=== PATIENT | female | born 1955 | race Caucasian/White ===

== ENCOUNTER 2019-05-25 16:23 | Emergency (ER) | payer MEDICAID, SELFPAY ==
[2019-05-25 16:48] VITALS: BMI 32.3
--- NOTE | 2019-05-25 17:37 | XR_ITS ---
WS: [id number] CHEST XRAY TECHNIQUE: Portable chest. CLINICAL INFORMATION: cp COMPARISON: None. FINDINGS: Heart: Normal cardiac silhouette. Lungs: Chronic emphysematous changes. No acute pulmonary infiltrates. No focal pneumonia. Cholecystec tanner clips. Bones: Normal visualized bony structures. XR/XR chest 1V portable [id number] IMPRESSION: No acute chest findings
--- NOTE | 2019-05-25 17:37 | ECG_ITS ---
Measurements Intervals [place] Rate: 70 P: -12 [place]: 162 QRS: 51 QRSD: 126 T: 71 QT: 376 QTc: 406 SINUS RHYTHM MODERATE INTRAVENTRICULAR CONDUCTION DELAY [110+ ms QRS DURATION] INTERPRETATION BASED ON A DEFAULT AGE OF 40 YEARS Compared to ECG 05/01/2016 18:42:11 Intraventricular conduction delay now present Electronically Signed On 05-26-2019 16:16:01 IMPLEMENTATION COORDINATOR by Kareem Smith M.D. [id number]
[2019-05-25 18:31] LABS: Basophils # 0.1 10^3/uL (0.0-0.1); Basophils % 0.7 %; Eosinophils # 0.1 10^3/uL (0.0-0.8); Eosinophils % 0.9 %; Hematocrit 41.5 % (37.0-47.0); Hemoglobin 13.5 g/dL (11.5-15.3); Lymphocytes # 3.9 10^3/uL (0.8-4.8); Lymphocytes % 36.4 %; Mean Corpuscular HGB Conc 32.5 g/dL (30.0-36.0); Mean Corpuscular Hemoglobin 30.4 pg (28.0-34.0); Mean Corpuscular Volume 93.5 fL (81-99); Mean Platelet Volume 11.5 fL (7.4-10.4); Monocytes # 0.4 10^3/uL (0.2-0.9); Monocytes % 4.1 %; Neutrophils # 6.1 10^3/uL (1.8-7.7); Neutrophils % 57.2 %; Nucleated Red Blood Cells % 0 %; Platelet Count 261 10^3/cmm (130-400); Red Blood Count 4.44 10^6/uL (4.1-5.3); Red Cell Distribution Width 11.8 % (12.1-15.1); White Blood Count 10.7 10^3/uL (4.0-10.0)
[2019-05-25 18:43] LABS: Alanine Aminotransferase 46 U/L (0-33); Albumin Level 4.6 g/dL (3.5-5.2); Alkaline Phosphatase 174 IU/L (35-105); Aspartate Amino Transferase 41 U/L (0-32); Blood Urea Nitrogen 14 mg/dL (8-23); Calcium 10.2 mg/dL (8.5-10.5); Carbon Dioxide 29 mmol/L (22-29); Chloride 95 mmol/L (98-107); Globulin 4.1 g/dL (1.3-4.6); Glomerular Filtration Rate 85.1 mL/min (90-130); Glucose 138 mg/dL (74-106); Sodium 134 mmol/L (136-145); Total Bilirubin 0.3 mg/dL (0.15-1.2); Total Protein 8.7 g/dL (6.6-8.7)
[2019-05-25 18:44] LABS: Troponin(5th) Baseline 7 ng/mL (0-10)
--- NOTE | 2019-05-25 19:37 | ECG_ITS ---
Measurements Intervals [place] Rate: 61 P: 30 [place]: 200 QRS: 56 QRSD: 84 T: 74 QT: 391 QTc: 395 SINUS RHYTHM NONSPECIFIC T-WAVE ABNORMALITY Compared to ECG 05/01/2016 18:42:11 T-wave abnormality now present Electronically Signed On 05-26-2019 16:20:17 ENVIRONMENTAL STUDIES DEPARTMENT CHAIR by Kareem Smith M.D. [id number]
[2019-05-25 19:59] LABS: Troponin 5 2HR 7.37 ng/mL (0-10); Troponin 5 2HR Delta 0.37 ABS# (0-10)
--- NOTE | 2019-05-25 20:36 | ED_ITS ---
Entered by Kenna Mercado, acting as scribe for Sunday Patricia MD May 25, 2019 16:23 HPI - Chest Pain General: Chief Complaint: Chest Pain Stated Complaint: cp Time Seen by Provider: 05/25/19 20:35 Source: patient Mode of arrival: ambulatory History of Present Illness: HPI narrative: 63 yo f came to the er pov for chest pain. Onset was today. Pt states that she has been having some sharp chest pain. Pt states that she doubled over in pain. Pt states that she has had these pains before. Pt states that she has had acid reflux in the past. complaint: chest pain Onset (ago): day(s) (today) Timing of current episode: still present Prior episodes: Yes Onset: during rest Pain location: substernal Pain radiation: none Severity: mild Quality: sharp Associated symptoms: Deny abdominal pain, dyspnea, fever(s), nausea or vomiting Treatment prior to arrival: none Risk Factors: Coronary artery disease risk factors: none Thoracic aortic dissection risk factors: none Related Data: On Oral Contraceptives: No Review of Systems Const: Denies: fever, chills, body aches or change in appetite Eyes: Denies: blurry vision or eye discomfort ENMT: Denies: throat pain or dental pain Card: Denies: chest pain Resp: Denies: shortness of breath GI: Denies: abdominal pain, nausea, vomiting or diarrhea : Denies: painful urination Musc: Denies: neck pain or back pain Skin/Breast: Denies: rash Neuro: Denies: headache Psych: Denies: depression Brenotn/Lymph: Denies: easy bruising All/Imm: Denies: hives PFSH ED PFSH: Statuses (acute, chronic, etc) shown below reflect problem list status as previously entered and may not be historically accurate Social History Smoking and tobacco status: never smoked Physical Exam Const: COMMON NORMALS: no apparent distress, oriented x3 and healthy appearing HENMT: COMMON NORMALS: normocephalic and head/scalp atraumatic HEAD & SCALP: normocephalic and atraumatic Eye: COMMON NORMALS: PERRL and EOMs intact bilaterally PUPIL: Yes PERRL Neck/C-Spine: COMMON NORMALS: full ROM and supple Chest: COMMONS NORMALS: inspection of chest normal and palpation of chest normal Resp: COMMON NORMALS: normal respiratory effort, no retractions, no use of accessory muscles and clear to auscultation bilaterally AUSCULTATION: clear to auscultation bilaterally Cardio: COMMON NORMALS: regular rate, regular rhythm and no murmurs RATE: regular rate RHYTHM: regular rhythm GI: COMMON NORMALS: normal to inspection, nondistended, normoactive bowel sounds, soft to palpation, non-tender and no masses PALPATION: Yes soft Extremity: COMMON NORMALS: normal to inspection and full ROM Neuro: COMMON NORMALS: oriented x3, moves all extremities and no focal motor deficits Psych: COMMON NORMALS: mental status grossly normal, thought process normal and cooperative THOUGHT PROCESS: normal thought process Skin: COMMON NORMALS: no rashes or lesions noted and no wounds GENERAL SKIN EXAM: no rashes or lesions noted Course Vital Signs: Vital signs: Vital Signs Pulse Rate 67 05/25/19 21:13 Respiratory Rate 16 05/25/19 21:13 Blood Pressure 131/85 05/25/19 21:13 Pulse Oximetry 94 05/25/19 21:13 MDM - Chest Pain MDM Narrative: Medical decision making narrative: Patient presents here with chest pain that is atypical in nature. Patient's EKG and troponins here are normal. Patient is stable for discharge and is return if worsening. Lab Data: Labs: Lab Results 05/25/19 05/25/19 05/25/19 Range/Units 18:00 18:00 18:00 WBC 10.7 H (4.0-10.0) 10^3/ uL RBC 4.44 (4.1-5.3) 10^6/u L Hgb 13.5 (11.5-15.3) g/dL Hct 41.5 (37.0-47.0) % MCV 93.5 (81-99) fL MCH 30.4 (28.0-34.0) pg MCHC 32.5 (30.0-36.0) g/dL RDW 11.8 L (12.1-15.1) % Plt Count 261 (130-400) 10^3/c mm MPV 11.5 H (7.4-10.4) fL Neut % (Auto) 57.2 % Lymph % (Auto) 36.4 % [place] % (Auto) 4.1 % Eos % (Auto) 0.9 % Baso % (Auto) 0.7 % Neut # (Auto) 6.1 (1.8-7.7) 10^3/u L Lymph # (Auto) 3.9 (0.8-4.8) 10^3/u L [place] # (Auto) 0.4 (0.2-0.9) 10^3/u L Eos # (Auto) 0.1 (0.0-0.8) 10^3/u L Baso # (Auto) 0.1 (0.0-0.1) 10^3/u L Nucleated RBC % (a uto) 0 % Nucleated RBCs # 0.0 /100WBC Sodium 134 L (136-145) mmol/L Potassium 4.0 (3.5-5.1) mmol/L Chloride 95 L (98-107) mmol/L Carbon Dioxide 29 (22-29) mmol/L Anion Gap 14.0 (5-19) BUN 14 (8-23) mg/dL Creatinine 0.7 (0.5-0.9) mg/dL GFR Calculation 85.1 L (90-130) mL/min Glucose 138 H (74-106) mg/dL Calcium 10.2 (8.5-10.5) mg/dL Total Bilirubin 0.3 (0.15-1.2) mg/dL AST 41 H (0-32) U/L ALT 46 H (0-33) U/L Alkaline Phosphata se 174 H (35-105) IU/L Troponin T Baselin e 7 (0-10) ng/mL Troponin T 120 Min [place] (0-10) ng/mL Delta Troponin T (0-10) ABS# Total Protein 8.7 (6.6-8.7) g/dL Albumin 4.6 (3.5-5.2) g/dL Globulin 4.1 (1.3-4.6) g/dL 05/25/19 Range/Units 19:30 WBC (4.0-10.0) 10^3/ uL RBC (4.1-5.3) 10^6/u L Hgb (11.5-15.3) g/dL Hct (37.0-47.0) % MCV (81-99) fL MCH (28.0-34.0) pg MCHC (30.0-36.0) g/dL RDW (12.1-15.1) % Plt Count (130-400) 10^3/c mm MPV (7.4-10.4) fL Neut % (Auto) % Lymph % (Auto) % [place] % (Auto) % Eos % (Auto) % Baso % (Auto) % Neut # (Auto) (1.8-7.7) 10^3/u L Lymph # (Auto) (0.8-4.8) 10^3/u L [place] # (Auto) (0.2-0.9) 10^3/u L Eos # (Auto) (0.0-0.8) 10^3/u L Baso # (Auto) (0.0-0.1) 10^3/u L Nucleated RBC % (a uto) % Nucleated RBCs # /100WBC Sodium (136-145) mmol/L Potassium (3.5-5.1) mmol/L Chloride (98-107) mmol/L Carbon Dioxide (22-29) mmol/L Anion Gap (5-19) BUN (8-23) mg/dL Creatinine (0.5-0.9) mg/dL GFR Calculation (90-130) mL/min Glucose (74-106) mg/dL Calcium (8.5-10.5) mg/dL Total Bilirubin (0.15-1.2) mg/dL AST (0-32) U/L ALT (0-33) U/L Alkaline Phosphata se (35-105) IU/L Troponin T Baselin e (0-10) ng/mL Troponin T 120 Min [place] 7.37 (0-10) ng/mL Delta Troponin T 0.37 (0-10) ABS# Total Protein (6.6-8.7) g/dL Albumin (3.5-5.2) g/dL Globulin (1.3-4.6) g/dL Imaging Data^: CXR: Attestation: I personally reviewed and interpreted this imaging study as follows: My impression: no acute abnormality EKG Data^: EKG 1: Attestation: I personally reviewed and interpreted this EKG as follows: EKG interpretation date: 05/25/19 EKG interpretation time: 16:56 Interpretation: nsr hr [address] or t wave abnormalities qrs 126 qtc 396 EKG 2: Attestation: I personally reviewed and interpreted this EKG as follows: EKG interpretation date: 05/25/19 EKG interpretation time: 20:30 Interpretation: nsr hr [address] or t wave abnormalities Discharge Plan Discharge Patient Disposition: Home, Self-Care Clinical Impression: Chest pain Qualifiers: Chest pain type: unspecified Qualified Code(s): R07.9 - Chest pain, unspecified Condition: Stable Prescriptions: [place] 5-325 mg tablet 1 tab PO Q6H PRN (Reason: pain) Qty: 14 RF: 0 Discharge Orders: Discharge Order (Routine); Ordered 05/25/19 Ordered By: Sunday Patricia Referrals: Maritza Fuentes MD [Physician] - 4-7 days Rex Kumar DO [Primary Care Provider] - Discharge Diet: Advance as tolerated Discharge Activity: Resume usual activity Patient Instructions: Chest Pain (ED) Discharge Date/Time: 05/25/19 21:14 Coding Level of Care Code ED Family Development Specialist for Chg Fwd Exam Problem Focused The documentation recorded by the Rogelio harkins Stephanie Lyn, accurately reflects the service I personally performed and the decisions made by Belem casiano Korby, MD May 25, 2019 16:23
[2019-05-25] MEDS: HYDROcodone-acetaminophen 5-325 mg Tablet 1 TAB PO (20:49)
[2019-05-25 21:13] VITALS: BP 131/85; PULSE 67; RESP 16; O2SAT 94
--- NOTE | 2019-05-26 16:01 | DCPLANNER ---
parking garage manager had message to schedule a follow up appointment for patient with [facility]. parking garage manager called [facility], spoke with Corie, a follow up appointment was scheduled for , June 04, 2019 at 10:45 with Alissa Jefferson. parking garage manager called patient and informed patient of the scheduled appointment.
--- NOTE | 2019-07-08 15:50 | DCPLANNER ---
Patient did attend appointment scheduled for 09.29.19 with [facility].
== END 2019-05-25 21:14 | disposition home or self-care (01) ==
PROVIDERS: Emergency Provider Emergency Medicine; Family Provider Family Medicine; PCP Family Medicine
DX: R07.9 Chest pain, unspecified (principal)
CPT/HCPCS: 36415; 71045; 80053; 84484; 85025; 93005; 99281; 99284

== ENCOUNTER 2020-10-20 16:19 | Outpatient (CLI) | payer MEDICAID, SELFPAY ==
--- NOTE | 2020-10-20 | XR_ITS ---
WS: [id number] Right knee, 3 views, 10/20/2020 Clinical Data: RT KNEE PAIN Comparison: None. Findings: No fractures or dislocations are seen. The joint spaces are normal. The patella is intact. The soft t issues are unremarkable. There are small spurs of the medial and lateral femoral condyles. There is a small irregularity infer ior to the lateral femoral condyle. XR/XR knee RT 3V* [id number] Impression: Mild osteoarthritis of the right knee. Kellgren-He Classification: grade 1 (doubtful): doubtful joint space narr owing and possible osteophytic lipping
== END 2020-10-20 16:20 | disposition home or self-care (01) ==
PROVIDERS: Family Provider Family Medicine; PCP Family Medicine; Visit Provider Family Medicine
DX: M25.561 Pain in right knee (principal); M17.11 Unilateral primary osteoarthritis, right knee
CPT/HCPCS: 73562

== ENCOUNTER 2021-04-05 15:31 | Outpatient (CLI) | payer MEDICAID, SELFPAY ==
--- NOTE | 2021-04-05 15:41 | XR_ITS ---
WS: [id number] LEFT KNEE: 3 VIEW(S) TECHNIQUE: AP, oblique(s) and lateral. HISTORY: ARTHRITIS COMPARISON: 12/02/2018 No fracture or dislocation. Moderate medial compartment narrowing with sclerosis along the joint surfaces and moderate osteophyte s. Mild narrowing of the lateral and patellofemoral compartments. Spurring involving the tibial spine s. No joint effusion. No soft tissue abnormality. XR/XR knee LT 3V* [id number] IMPRESSION: 1. Moderate medial compartment osteoarthritis. 2. Mild osteoarthritis involving the lateral and patellofemoral compartments.
--- NOTE | 2021-04-05 15:42 | XR_ITS ---
WS: [id number] RIGHT KNEE: 3 VIEW(S) TECHNIQUE: AP, oblique(s) and lateral. HISTORY: ARTHRITIS COMPARISON: 10/20/2020 Mild tricompartment narrowing. Small osteophytes and joint space narrowing involving the compartments . Irregularity along the posterior surface of patella. No joint effusion. No soft tissue abnormality. XR/XR knee RT 3V* [id number] IMPRESSION: Mild tricompartment osteoarthritis. More significant loss of of the normal griselda ex and cartilage along the posterior surface of the patella.
== END 2021-04-05 15:32 | disposition home or self-care (01) ==
PROVIDERS: PCP Family Medicine; Visit Provider Family Medicine
DX: M17.12 Unilateral primary osteoarthritis, left knee; M17.11 Unilateral primary osteoarthritis, right knee
CPT/HCPCS: 73562

== ENCOUNTER → 2021-08-28 13:41 | Outpatient (BNVA) | payer MEDICARE, MEDICAID, SELFPAY | PROVIDERS: PCP Family Medicine; Visit Provider Family Medicine | DX: D64.9 Anemia, unspecified (principal) | CPT/HCPCS: 82728; 83550; 85007; 85027; 85045 ==

== ENCOUNTER 2021-09-18 10:43 | Outpatient (CLI) | payer MEDICARE, MEDICAID, SELFPAY ==
--- NOTE | 2021-09-18 10:52 | MM_ITS ---
WS: [id number] DIAGNOSTIC BILATERAL DIGITAL BREAST TOMOSYNTHESIS MAMMOGRAPHY WITH CAD RIGHT breast ultrasound, limited. HISTORY: RIGHT BREAST PAIN COMPARISON: 03/13/2016 TECHNIQUE: Bilateral craniocaudad, mediolateral oblique, and mediolateral views are submitted with to mosynthesis and SM. Spot compression RIGHT CC and MLO. Computer aided detection utilized. Breast composition: There are scattered areas of fibroglandular density. Significant change in appear ance of the RIGHT breast since the prior study. Area of architectural distortion corresponds to 9:00 of the RIGHT breast. Posterior to the RIGHT nipple there is increasing soft tissue thickening and str anding with soft tissue calcifications. Predominantly centered just posterior and along the 9:00 axis . Nipple is retracted. There is also skin thickening anteriorly. LEFT breast is negative. RIGHT breast: Irregular, ill-defined hypoechoic mass infiltrating the soft tissues of the RIGHT breas t posterior to the nipple and along the 9:00 axis. Mass measures at least 3.0 x 1.5 cm. Visually on t he mammogram the area is more extensive and there is distention of the ducts with tumor. No axillary lymph nodes. MM/[place] [id number] IMPRESSION: BI-RADS: 5-Highly Suggestive of Malignancy FOLLOW UP: Biopsy Recommended Ultrasound-guided biopsy recommended of the soft tissue mass in the RIGHT breas t extending towards the 9:00 axis. Highly suspicious for neoplasm. Notified Rex Kumar DO at 09/18/2021 12:20 PM. Message left on the answering service.
== END 2021-09-18 10:44 | disposition home or self-care (01) ==
LOC: RAD 10:49
PROVIDERS: PCP Family Medicine; Visit Provider Family Medicine
DX: N64.4 Mastodynia (principal); N63.15 Unspecified lump in the right breast, overlapping quadrants
CPT/HCPCS: 76642; 77062

== ENCOUNTER → 2021-10-09 08:53 | Outpatient (BNVA) | payer MEDICARE, MEDICAID, SELFPAY | PROVIDERS: PCP Family Medicine; Visit Provider Surgery | DX: K92.1 Melena (principal) | CPT/HCPCS: 99202 ==

== ENCOUNTER 2021-10-11 08:22 | Outpatient (CLI) | payer MEDICARE, MEDICAID, SELFPAY ==
--- NOTE | 2021-10-11 08:33 | US_ITS ---
WS: [id number] ULTRASOUND-GUIDED RIGHT BREAST BIOPSY CLINICAL INFORMATION: R BREAST PAIN COMPARISON: None. FINDINGS: The procedure including risks, benefits, and complications were discussed with the patient who agreed to proceed. Using sterile technique patient was prepped and draped in the usual sterile fashion. Aft er 1% lidocaine utilizing real-time ultrasound guidance 5 14-gauge cores were obtained of the RIGHT b reast lesion at the RIGHT nipple. Subsequently a titanium clip was placed in the biopsy cavity. No im mediate complications. Pathology demonstrates A. Breast, right breast mass , ultrasound-guided biopsy: - Invasive mammary carcinoma with infiltrative papillary growth. - Martinez Solano grade 3 (score 8). - Lymphovascular invasion identified. - Breast prognostic profile has been performed and will be reported separately. US/[place] [id number] IMPRESSION: 1. Uncomplicated ultrasound-guided RIGHT breast biopsy. 2. The pathology demonstrates INVASIVE MAMMARY CARCINOMA WITH INFILTRATIVE PAP ILLARY GROWTH AND LYMPHOVASCULAR INVASION 3. Breast cancer prognostic profile pending. 4. RECOMMEND BREAST SURGERY CONSULTATION. BI-RADS: 6-Known Biopsy-Proven Malignancy FOLLOW UP: Surgical Biopsy Recommended RECOMMEND BREAST SURGERY CONSULTATION.
[2021-10-17 14:11] LABS: Miscellaneous Test See Scanned Lab Rpt
== END 2021-10-11 08:23 | disposition home or self-care (01) ==
LOC: RAD 08:24
PROVIDERS: PCP Family Medicine; Visit Provider Family Medicine
DX: C50.011 Malignant neoplasm of nipple and areola, right female breast (principal)
CPT/HCPCS: 19083; 88305; 88361; 88374

== ENCOUNTER 2021-11-01 08:17 | Oncology outpatient (recurring) (ONCR) | payer MEDICARE, MEDICAID, SELFPAY | END 2021-11-01 23:59 | disposition home or self-care (01) | PROVIDERS: PCP Family Medicine; Visit Provider Internal Medicine Hematology & Oncology | DX: C50.911 Malignant neoplasm of unspecified site of right female breast (principal); Z17.0 Estrogen receptor positive status [ER+] | CPT/HCPCS: 99204 ==

== ENCOUNTER → 2021-11-07 09:45 | Outpatient (BNVA) | payer MEDICARE, MEDICAID, SELFPAY | PROVIDERS: PCP Family Medicine; Visit Provider Surgery | DX: C50.911 Malignant neoplasm of unspecified site of right female breast (principal) | CPT/HCPCS: 99213 ==

== ENCOUNTER 2021-11-15 13:08 | Observation (INO) | payer MEDICARE, MEDICAID, SELFPAY ==
[2021-11-14 11:42] VITALS: BMI 30.2
[2021-11-15] VITALS (14 sets, daily range): BP systolic 106–168; BP diastolic 66–81; PULSE 69–82; RESP 14–20; TEMP 36.3–36.8; O2SAT 90–98; BMI 30.2
--- NOTE | 2021-11-15 07:46 | NM_ITS ---
WS: [id number] NUCLEAR MEDICINE SENTINEL LYMPH NODE IMAGING HISTORY: right breast mass COMPARISON: None available. TECHNIQUE: The patient was injected with 1.03 mCi of Technetium 99 ultra filtered sulfur colloid. Inj ection is intradermal in a periareolar location. Four aliquots are used. RIGHT breast sentinel node injection complete at 8:20 AM. NM/NM lymphatics/lymph node [id number] IMPRESSION: Uncomplicated RIGHT breast sentinel node injection.
--- NOTE | 2021-11-15 08:27 | PC.NURSE ---
Right breast sentinel node injection of 1.03 mCi Tc99m Filtered Sulfur Colloid completed at 08:[address] Miller. BONI
[2021-11-15 08:52] LABS: Glucose Point of Care 122 mg/dL (70-110)
--- NOTE | 2021-11-15 08:53 | P.ANESASSM_ITS ---
Pre-Anesthetic Assessment Height/Weight: Height 1.5 m Weight 68.039 kg Temp Pulse Resp BP Pulse Ox 98.2 F 69 18 125/68 95 11/15/21 08:39 11/15/21 08:39 11/15/21 08:39 11/15/21 08:39 11/15/21 08:39 Preop Diagnosis: Right breast cancer Operation Date: 11/15/21 10:15 Proposed Procedures p simple [place] [id number],C50.911(Right) - Adilson Lofton DO s Sentinal Lymph Node Biopsy(Right) - Adilson Lofton DO Familial anesthetic complications: None Was Beta Christopher taken within 24 hours: N/A Was Clonidine taken within 24 hours: N/A Last intake: Intake Last Liquid Date 11/14/21 Last Liquid Time 23:30 Last Solid Date 11/14/21 Last Solid Time 23:30 Social No alcohol and No tobacco Exam alert, oriented x 3, clear to auscultation bilaterally and regular rate & rhythm Airway Mallampati: Class III Dentition: false Pulmonary None reported CV/HEM Hypertension and Peripheral Vascular Disease None reported Hepatic None reported GI Gastroesophageal Reflux Disease Metabolic Diabetes Mellitus, Hyperlipidemia and Thyroid Disease Anesthetic Plan ASA status: 3 Anesthesia: General Risk of > 500 ml blood loss (7ml/kg in children): No Medications/Allergies Home Medications Medication Instructions Recorded Confirmed Last Taken Type alprazolam 1 mg tablet 1 mg PO TID 06/03/19 11/15/21 11/14/21 History metformin 500 mg tablet 500 mg PO BID 07/22/19 11/15/21 11/14/21 History acetaminophen 325 mg capsule 325 mg PO QID PRN 04/11/21 11/14/21 Unknown History atorvastatin 20 mg tablet 20 mg PO DAILY #90 tab 04/11/21 11/15/21 11/14/21 Rx isosorbide mononitrate 30 mg 45 mg PO DIRECTED #135 tab 04/11/21 11/15/21 11/14/21 Rx tablet,extended release 24 hr levothyroxine 75 mcg capsule 88 mcg PO DAILY cap 04/11/21 11/15/21 11/14/21 History nitroglycerin 0.4 mg sublingual 0.4 mg SUBLINGUAL Q5M PRN #25 tab 04/11/21 11/14/21 Unknown Rx tablet (Nitrostat) diclofenac sodium 1 % gel topical See Rx Instructions TOPICAL ONCE 11/01/21 11/14/21 Unknown History kit PRN ea escitalopram oxalate 20 mg tablet 20 mg PO DAILY 11/01/21 11/15/21 11/14/21 History hydrocodone 7.5 mg-acetaminophen 1 tab PO Q4H PRN 11/01/21 11/15/21 11/15/21 History 325 mg tablet pantoprazole 40 mg tablet,delayed 40 mg PO DAILY 11/01/21 11/15/21 11/14/21 History release (Protonix) Allergies Allergy/AdvReac Type Severity Reaction Status Date / Time No Known Allergies Allergy Verified 11/07/21 09:48 PFSH Anesthesia Medical History Anxiety Breast cancer, right breast Diverticulitis DJD (degenerative joint disease) Hypothyroidism PAD (peripheral artery disease) Prediabetes Surgical History History of esophagogastroduodenoscopy (EGD) 10 + years ago Hx laparoscopic cholecystectomy Hx of colonoscopy 10 + years ago Hx of hysterectomy S/P foot surgery, left S/P knee surgery Family History Mother Diabetes Hypertension Stroke Sister Cancer Dementia Brother Cancer Denies family history of CAD (coronary artery disease) Clotting disorder Hyperlipidemia Psychiatric illness Chronic kidney disease (CKD) Suicide Anesthesia complication Bleeding disorder Family history of premature coronary artery disease Lung disease Social History Smoking and tobacco status: never smoked Alcohol intake: never Data Anesthesia Cardiac Studies: No Data to Display
--- NOTE | 2021-11-15 10:11 | W.PM.OPSUD ---
Surgery/Procedure H&P Update DATE OF PROCEDURE: November 15, 2021 DATE H&P PERFORMED: 11/07/21 CHANGES TO PREVIOUS DOCUMENTATION: NONE PREOP DIAGNOSIS: Right breast cancer PLANNED PROCEDURE: Operation Date: 11/15/21 10:15 Proposed Procedures p simple [place] [id number],C50.911(Right) - DO edgar Burks Sentinal Lymph Node Biopsy(Right) - Adilson Lofton DO
[2021-11-15] MEDS: ceFAZolin 2,000 MG in sodium chloride 0.9% (plus) 50 ML 100 MG IV (11:36)
--- NOTE | 2021-11-15 11:45 | PC.NURSE ---
CALLED AND SPOKE TO PATHOLOGY TO NOTIFY THEM OF DR. GUERRIER'S FROZEN LYMPH NODE SECTION THAT WOULD BE READY IN ABOUT 20 MINUTES.
[2021-11-15] MEDS: isosulfan blue 10 mg/mL SDV 5mL 50 MG SUBCUT (12:17)
--- NOTE | 2021-11-15 16:39 | PM.OP ---
Operative Report Date of procedure: November 15, 2021 Pre-op diagnosis: Preop Diagnosis Right breast cancer Post-op diagnosis: same Procedure done: Right mastectomy with sentinel lymph node biopsy Specimens removed/disposition: Right breast and sentinel lymph nodes x5 Surgeon: Dr. Adilson Lofton DO Estimated blood loss: 150 Complications: None apparent Findings: 5 sentinel lymph nodes identified. 3 of the nodes were frozen by pathology and found to be negative on frozen Brief History: This is a very pleasant 66-year-old female who was diagnosed with right breast cancer. Right mastectomy and sentinel lymph node biopsy were indicated. The risks and benefits of the procedure were explained and documented. Procedure: The patient was wheeled into the operative room and placed on the OR table in the supine position. The right breast and axilla were inspected prepped and draped in the usual sterile fashion. A timeout was performed. All present were in agreement. Lymphazurin blue was injected subareolarly and into the mass.? These areas were massaged for 5 minutes.? A horizontal excision was made from medial to the latissimus dorsi to lateral to the sternum, encompassing the nipple.? The lateral dissection was performed first.? I dissected down to the latissimus dorsi and superior to the fascia using Bovie cautery.? Using Bovie cautery and [place] counter I looked for a sentinel node.? The [place] counter at the mass was registering at 538 and 5 sentinel lymph nodes were identified measuring between 230 and 348. 2 of the lymph nodes were relatively large and blue. The lymph nodes were removed with Bovie cautery, clipping any small arteries, and sent to pathology for frozen section. Pathology called and said they froze 3 of him and did not identify any metastases. Attention was then brought back to the mastectomy.? The horizontal ellipse excision was made with a 15 blade scalpel and carried down to the fatty tissue with Bovie cautery.? I started with the superior flap and removed all the breast tissue using Bovie cautery.? This was carried up to the clavipectoral fascia and down to the pectoralis major.? All breast tissue was removed laterally to the latissimus dorsi and proximally to the sternum.? I then went to the posterior flap all breast tissue was removed with Bovie cautery down to the inframammary fold.? I did not come very close to the mass and it was not visualized as the breast was removed en bloc. I carried the dissection down to the pectoralis major and removed all the breast tissue in its entirety.? Hemostasis was achieved with electrocautery and medium sized clips.? The breast was removed and a stitch was placed on the medial margin to miranda the specimen.? The specimen was passed off.? The surgical field was irrigated and suctioned.? There was no signs of bleeding.? A 19 Arabic Shlomo drain was then placed underneath the skin.? Dermis was then approximated with 3-0 Vicryl in interrupted fashion.? Skin was then closed with 4-0 Vicryl in a subcuticular running fashion.? Patient tolerated the procedure well and was wheeled in the postoperative anesthesia care unit in good condition.
[2021-11-15] MEDS: HYDROcodone-acetaminophen 5-325 mg Tablet 1 TAB PO ×2 (16:40→22:09)
[2021-11-15] MEDS: metformin 500 mg Tablet PO (18:59)
[2021-11-15] MEDS: heparin 5,000 unit/mL INJ 1 mL 5000 UNIT SUBCUT (21:57)
[2021-11-15] MEDS: ALPRAZolam 0.5 mg Tablet 1 MG PO (21:57)
[2021-11-16 03:40] VITALS: BP 91/52; PULSE 92; RESP 16; O2SAT 95
--- NOTE | 2021-11-16 06:46 | P.DS_ITS ---
Discharge Providers Date of Admission: 11/15/21 13:08 Date of Discharge: November 16, 2021 Attending Provider at Admission: Adilson Lofton DO Attending Provider at Discharge: Adilson Lofton DO Primary Care Provider: Rex Kumar DO Reason for Visit Reason for Visit: Brief History: 66-year-old female with right breast cancer underwent right simple mastectomy with sentinel lymph node biopsy. Hospital Course Hospital Course 66-year-old female with right breast cancer underwent right simple mastectomy with sentinel lymph node biopsy. [place] lymph nodes were negative on frozen. She was kept as an outpatient in a bed for 1 night for pain control. She did well and was discharged home the next day with pain control and a drain, along with follow-up. Physical Exam Narrative: General : Patient is well developed , no acute distress, oriented x3 Head : Normal cephalic, a-traumatic. Ears : Pinnae and external canal are normal. Hearing is normal. Eyes : PERRLA, Sclera and injection are normal. No conjunctival discharge. Nose : Mucous membranes are without erythema. Throat : buccal mucosa is normal, gums are without significant recession or hypertrophy. Lungs : Equal chest rise bilaterally, no use of accessory muscles, trachea is midline. Cor : Rate and rhythm are normal. Breast: Bandages intact without significant soak through. Drain is serosanguineous Abdomen : Soft, ND, NT, no g/r/m Extremities : No edema, no cyanosis or clubbing, dorsalis pedis pulses are present bilaterally, non-tender to palpation of calves. Upper extremities are normal bilaterally. Back : non-tender to palpation, no CVA tenderness. Neuro : CN II - XII intact, Upper and lower extremities have equal and full strength Discharge Data Studies Completed and Pending Completed Studies During Hospitalization Category Date Time Status NM lymphatics/lymph node [id number] Routine Nuc Med 11/15/21 07:46 Completed Pending at discharge Category Date Time Status Pathology: Surgical [PTH] Routine Pth 11/15/21 13:43 Received Radiology Impressions Lymph Scan Nuclear Medicine 11/15/21 07:46 IMPRESSION: Uncomplicated RIGHT breast sentinel node injection. Laboratory Results POC Glucose 122 mg/dL (70-110) H 11/15/21 08:50 Vitals Last Vital Signs Temp 98.1 F 11/16/21 19:58 Pulse 88 11/16/21 19:58 Resp 15 11/16/21 19:58 BP 112/68 11/16/21 19:58 Pulse Ox 95 11/16/21 14:00 O2 Del Method 11/16/21 09:30 O2 Flow Rate 2 11/15/21 16:39 Discharge Plan Discharge Patient Disposition: Home Condition: Stable Prescriptions: Continued atorvastatin 20 mg tablet 20 mg PO DAILY Qty: 90 4RF isosorbide mononitrate 30 mg tablet extended release 24 hr 45 mg PO DIRECTED Qty: 135 4RF Rx Instructions: 30mg in the morning, 15 mg at bedtime nitroglycerin [Nitrostat] 0.4 mg tablet, sublingual 0.4 mg SUBLINGUAL Q5M PRN (Reason: chest pain) Qty: 25 3RF metformin 500 mg tablet 500 mg PO BID alprazolam 1 mg tablet 1 mg PO TID levothyroxine 75 mcg capsule 88 mcg PO DAILY escitalopram oxalate 20 mg tablet 20 mg PO DAILY pantoprazole [Protonix] 40 mg tablet,delayed release (DR/EC) 40 mg PO DAILY diclofenac sodium 1 % kit See Rx Instructions topical ONCE PRN (Reason: arthritis) Rx Instructions: topical once PRN; Held acetaminophen 325 mg capsule 325 mg PO QID PRN (Reason: Pain) Hold Instructions: Resume on 11/23/21. hydrocodone-acetaminophen 7.5-325 mg tablet 1 tab PO Q4H PRN (Reason: Pain) Hold Instructions: Resume on 11/23/21. Discharge Orders: Discharge Order (Routine); Ordered 11/16/21 Ordered By: Adilson Lofton Referrals: Adilson Lofton DO [Physician] - 2 weeks (Call clinic tomorrow morning to schedule appointment. ) Discharge Diet: Advance as tolerated Discharge Activity: Resume usual activity Patient Instructions: Hydrocodone/Acetaminophen (By mouth) (Vicodin, Bonifay, Lortab), Aelx-Keller Drain Care (DC), Lymphedema (DC), Opioid Safety, Post Anesthesia Care Activity Restrictions/Additional Instructions: Empty drain once a day plus as needed. Do not soak incision underwater for 2 weeks. Shower daily. Discharge Attestations Time Spent in Discharge Care*: less than 30 min Quality Metrics Clinical Quality Measures [ No reported AMI, CVA or VTE this stay] Coding Level of Care Code Acute Chg FW DC note
[2021-11-16] MEDS: ALPRAZolam 0.5 mg Tablet 1 MG PO ×2 (07:56→15:53)
[2021-11-16] MEDS: levothyroxine 88 mcg Tablet PO (07:57)
[2021-11-16] MEDS: metformin 500 mg Tablet PO (07:58)
[2021-11-16] MEDS: atorvastatin 40 mg Tablet 20 MG PO (07:59)
[2021-11-16] MEDS: pantoprazole DR 40 mg Tablet PO (07:59)
[2021-11-16] MEDS: heparin 5,000 unit/mL INJ 1 mL 5000 UNIT SUBCUT ×2 (07:59→15:53)
[2021-11-16] MEDS: escitalopram 10 mg Tablet 20 MG PO (08:06)
[2021-11-16] MEDS: HYDROcodone-acetaminophen 5-325 mg Tablet 1 TAB PO ×2 (08:08→15:53)
[2021-11-16] MEDS: isosorbide mononitrate ER 30 mg Tablet PO (08:10)
[2021-11-16 09:30] VITALS: BP 90/44; PULSE 92; RESP 15; TEMP 37; O2SAT 95
[2021-11-16 09:46] VITALS: RESP 18; O2SAT 95
[2021-11-16] MEDS: morphine 4 mg/mL SDV 1 mL IVP (09:46)
[2021-11-16 14:00] VITALS: BP 108/65; PULSE 97; RESP 15; TEMP 36.7; O2SAT 95
--- NOTE | 2021-11-16 19:25 | PC.NURSE ---
Patient verbalized understanding of discharge instructions. Patient verbalized understanding of wound care given by Dr. Lofton while RN not present at bed side. IV discontinued. No further needs at this time. AR RN
[2021-11-16 19:27] VITALS: BP 112/68; PULSE 88; RESP 15; TEMP 36.7
[2021-11-16 19:58] VITALS: BP 112/68; PULSE 88; RESP 15; TEMP 36.7
== END 2021-11-16 19:30 | disposition home or self-care (01) ==
LOC: OBGYN 13:08
PROVIDERS: Admitting Provider Surgery; PCP Family Medicine; Visit Provider Surgery
PROC: (CPT 19303; principal; 2021-11-15 10:15)
PROC: (CPT 19303; 2021-11-15 10:15)
DX: C50.911 Malignant neoplasm of unspecified site of right female breast (principal); K21.9 Gastro-esophageal reflux disease without esophagitis; I10 Essential (primary) hypertension; E11.9 Type 2 diabetes mellitus without complications; E78.5 Hyperlipidemia, unspecified; F41.9 Anxiety disorder, unspecified; M19.90 Unspecified osteoarthritis, unspecified site; E03.9 Hypothyroidism, unspecified; Z79.84 Long term (current) use of oral hypoglycemic drugs; R73.03 Prediabetes
CPT/HCPCS: 19303; 38525; 36416; 78195; 82962; 88307; 88309; 88331; 88342; 96372; A9541; G0378; J1644; J2270; J2704; J3010; Q9968

== ENCOUNTER → 2021-11-21 13:22 | Outpatient (BNVA) | payer MEDICARE, MEDICAID, SELFPAY | PROVIDERS: PCP Family Medicine; Visit Provider Surgery | DX: Z98.890 Other specified postprocedural states (principal); C50.911 Malignant neoplasm of unspecified site of right female breast; I73.9 Peripheral vascular disease, unspecified; M79.89 Other specified soft tissue disorders; D62 Acute posthemorrhagic anemia | CPT/HCPCS: 99214 ==

== ENCOUNTER 2021-11-21 15:10 | Outpatient (CLI) | payer MEDICARE, MEDICAID, SELFPAY ==
--- NOTE | 2021-11-21 15:13 | USCV_ITS ---
Hans Maria Age: 66 Gender: F : 1955 Exam Date: 11/21/2021 15:18 Ordering Phys: Warner Huertas MD Technologist: CHELSEY Exam Location: [facility] [place]_ Indication: Possible DVT HISTORY: Left leg swelling post op breast surgery one week PROCEDURES: Venous duplex imaging was performed in bilateral lower extremities. The following venous structures were evaluated: common femoral vein, profunda vein, proximal portion of the greater saphenous vein, superficial femoral vein, and the popliteal vein. In addition, the posterior tibial and peroneal trunk were evaluated. FINDINGS: There appears to be partial thrombus in the left prox small saphenous vein. All other veins imaged appear compressible and free of thrombus a this time. CONCLUSIONS Thrombus left proximal small saphenous vein. Remainder LLE veins are patent. Right Lower extremity veins are patent. Connor Renae MD (Electronically Signed) Final Date: 23 November 2021 17:31 S
[2021-11-21 16:12] LABS: Basophils % 0.4 %; Eosinophils # 0.2 10^3/uL (0.0-0.8); Eosinophils % 3.6 %; Lymphocytes # 1.7 10^3/uL (0.8-4.8); Lymphocytes % 31.7 %; Mean Corpuscular HGB Conc 30.4 g/dL (30.0-36.0); Mean Corpuscular Hemoglobin 29.7 pg (28.0-34.0); Mean Corpuscular Volume 97.6 fl (81-99); Mean Platelet Volume 9.6 fL (7.4-10.4); Monocytes # 0.4 10^3/uL (0.2-0.9); Monocytes % 7.3 %; Neutrophils # 2.93 10^3/uL (1.8-7.7); Neutrophils % 56.2 %; Nucleated Red Blood Cells % 0 %; Platelet Count 125 10^3/cmm (130-400); Red Blood Count 2.09 10^6/uL (4.1-5.3); White Blood Count 5.2 10^3/uL (4.0-10.0)
[2021-11-21 16:28] LABS: Hematocrit 20.4 % (37.0-47.0); Hemoglobin 6.2 g/dL (11.5-15.3)
== END 2021-11-21 15:11 | disposition home or self-care (01) ==
LOC: RAD 15:10
PROVIDERS: PCP Family Medicine; Visit Provider Surgery
DX: M79.89 Other specified soft tissue disorders (principal); I82.812 Embolism and thrombosis of superficial veins of left lower extremity; Z98.890 Other specified postprocedural states
CPT/HCPCS: 36415; 85025; 93970; 99214

== ENCOUNTER 2021-11-21 18:46 | Observation (INO) | payer MEDICARE, MEDICAID, SELFPAY ==
[2021-11-21 18:56] VITALS: BMI 35.6
--- NOTE | 2021-11-21 19:23 | P.HP_ITS ---
Providers/Chief Complaint Admitting Physician: Warner Huertas MD Primary Care Provider: Rex Kumar DO Chief Complaint: Hemoglobin 6.2-dr sent History of Present Illness Maria Maxwell is a 66 year old female who underwent right mastectomy on 11/15/2021. Patient states that she has been having sanguinous drainage in the LYNETTE bulb and over the last 2 days they have emptied the bulb about 5 times. Patient is complaining of severe pain as well as dizziness when she presented to the clinic today. She denies any shortness of breath, loss of consciousness. She is currently on hydrocodone. She denies any fevers or chills. Medications/Allergies Home Medications Medication Instructions Recorded Confirmed Last Taken Type alprazolam 1 mg tablet 1 mg PO TID 06/03/19 11/21/21 11/14/21 History metformin 500 mg tablet 500 mg PO BID 07/22/19 11/21/21 11/14/21 History acetaminophen 325 mg capsule 325 mg PO QID PRN 04/11/21 11/21/21 Unknown History atorvastatin 20 mg tablet 20 mg PO DAILY #90 tab 04/11/21 11/21/21 11/14/21 Rx isosorbide mononitrate 30 mg 45 mg PO DIRECTED #135 tab 04/11/21 11/21/21 11/14/21 Rx tablet,extended release 24 hr levothyroxine 75 mcg capsule 88 mcg PO DAILY cap 04/11/21 11/21/21 11/14/21 History nitroglycerin 0.4 mg sublingual 0.4 mg SUBLINGUAL Q5M PRN #25 tab 04/11/21 11/21/21 Unknown Rx tablet (Nitrostat) diclofenac sodium 1 % gel topical See Rx Instructions TOPICAL ONCE 11/01/21 11/21/21 Unknown History kit PRN ea escitalopram oxalate 20 mg tablet 20 mg PO DAILY 11/01/21 11/21/21 11/14/21 History hydrocodone 7.5 mg-acetaminophen 1 tab PO Q4H PRN 11/01/21 11/21/21 11/15/21 History 325 mg tablet pantoprazole 40 mg tablet,delayed 40 mg PO DAILY 11/01/21 11/21/21 11/14/21 History release (Protonix) hydrocodone 7.5 mg-acetaminophen 1 tab PO Q4H PRN #42 tab 11/16/21 11/21/21 Unknown Rx 325 mg tablet Allergies Allergy/AdvReac Type Severity Reaction Status Date / Time No Known Allergies Allergy Verified 11/21/21 13:33 PFSH Acute PFSH: Medical History (Updated 11/21/21 @ 19:27 by Warner Huertas MD) Anxiety Breast cancer, right breast Diverticulitis DJD (degenerative joint disease) Hypothyroidism PAD (peripheral artery disease) Prediabetes Surgical History (Updated 11/21/21 @ 19:27 by Warner Huertas MD) History of esophagogastroduodenoscopy (EGD) 10 + years ago Hx laparoscopic cholecystectomy Hx of colonoscopy 10 + years ago Hx of hysterectomy Hx of mastectomy S/P foot surgery, left S/P knee surgery Family History Mother Diabetes Hypertension Stroke Sister Cancer Dementia Brother Cancer Denies family history of CAD (coronary artery disease) Clotting disorder Hyperlipidemia Psychiatric illness Chronic kidney disease (CKD) Suicide Anesthesia complication Bleeding disorder Family history of premature coronary artery disease Lung disease Social History Smoking and tobacco status: never smoked Alcohol intake: never Physical Exam Narrative: Breast exam performed in the office earlier today A&P Assessment and plan (1) Acute blood loss anemia: Anemia secondary to blood loss status post right mastectomy on 11/15/21. Patient was feeling dizzy the office denies any chest pain or shortness of breath and the hemoglobin performed in the clinic was 6.2. Admit to the floor Normal saline at 100 cc/h Transfuse 1 unit PRBC Repeat CBC, BMP in the morning Resume home meds except metformin Insulin sliding scale Will discuss her case with her primary surgeon Dr. 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
[2021-11-21 19:48] VITALS: RESP 18
[2021-11-21] MEDS: oxyCODONE-APAP 5-325 mg Tablet 1 TAB PO (19:48)
[2021-11-21] MEDS: ALPRAZolam 0.5 mg Tablet 1 MG PO (19:48)
[2021-11-21] MEDS: isosorbide mononitrate ER 30 mg Tablet 15 MG PO (19:48)
[2021-11-21 21:19] VITALS: BP 125/62; PULSE 88; RESP 17; TEMP 36.6; O2SAT 95
[2021-11-21] MEDS: lactated ringers 1,000 ML 100 ML IV (21:30)
[2021-11-21 21:58] LABS: Glucose Point of Care 204 mg/dL (70-110)
--- NOTE | 2021-11-21 23:30 | PC.NURSE ---
Call placed to More in lab to follow up on results of type and screen. More stating the results will be ready soon.
[2021-11-21 23:37] VITALS: RESP 18
[2021-11-21] MEDS: morphine 4 mg/mL SDV 1 mL 3 MG IVP (23:37)
[2021-11-21 23:50] VITALS: BP 120/67; PULSE 84; RESP 15; TEMP 36.8; O2SAT 93
[2021-11-22] VITALS (12 sets, daily range): BP systolic 96–148; BP diastolic 55–73; PULSE 78–92; RESP 16–22; TEMP 36.4–37.8; O2SAT 93–96
--- NOTE | 2021-11-22 00:48 | PC.NURSE ---
RN called update for status of blood. Lab reported it would be ready in 10 minutes. Pt updated.
[2021-11-22] MEDS: sodium chloride 0.9% (100 ml) 100 ML 200 ML (01:11)
[2021-11-22] MEDS: oxyCODONE-APAP 5-325 mg Tablet 1 TAB PO (01:53)
[2021-11-22 06:43] LABS: Hemoglobin 7.2 g/dL (11.5-15.3)
--- NOTE | 2021-11-22 07:09 | PC.NURSE ---
Bedside report received from STEFF Davila.
[2021-11-22 07:36] LABS: Glucose Point of Care 190 mg/dL (70-110)
[2021-11-22 07:58] LABS: Anion Gap 13.1 (5-19); Blood Urea Nitrogen 11 mg/dL (8-23); Carbon Dioxide 26 mmol/L (22-29); Chloride 103 mmol/L (98-107); Glomerular Filtration Rate 160.7 mL/min (90-130); Glucose 148 mg/dL (65-115); Osmolality Calculated 286 mOsm/kg (285-295); Potassium 5.1 mmol/L (3.5-5.1); Sodium 137 mmol/L (136-145)
[2021-11-22] MEDS: insulin lispro 100 unit/1 mL SUBCUT ×3 (08:04→17:25)
[2021-11-22] MEDS: pantoprazole DR 40 mg Tablet PO (08:05)
[2021-11-22] MEDS: levothyroxine 88 mcg Tablet PO (08:05)
[2021-11-22] MEDS: docusate sodium 100 mg Capsule PO (08:05)
[2021-11-22] MEDS: escitalopram 10 mg Tablet 20 MG PO (08:05)
[2021-11-22] MEDS: isosorbide mononitrate ER 30 mg Tablet PO ×2 (08:05→20:38)
[2021-11-22] MEDS: ALPRAZolam 0.5 mg Tablet 1 MG PO ×3 (08:05→20:38)
--- NOTE | 2021-11-22 09:19 | PM.PN ---
Subjective Subjective: Patient seen and examined. She still has some incisional pain, but it is improving. Vitals/I&O/Wt Last Vital Signs Temp 98.0 F 11/22/21 08:13 Pulse 92 11/22/21 08:13 Resp 18 11/22/21 08:13 BP 120/72 11/22/21 08:13 Pulse Ox 94 11/22/21 04:15 O2 Del Method 11/21/21 23:50 11/21/21 11/22/21 11/22/21 22:59 06:59 14:59 Intake Total 1616.667 / 1616.667 Output Total 80 / 80 Balance 1536.667 / 1536.667 Weight last 48 hrs Weight 176 lb 4.8 oz Physical Exam Narrative: General: No acute distress, awake alert and oriented x3 Breast: Incision intact without erythema or exudate there is an underlying hematoma Drain is sanguinous Data : 11/22/21 06:16 11/22/21 06:16 A&P Assessment and plan (1) Hx of mastectomy: Status: Acute (2) Acute blood loss anemia: Status: Acute Plan She had an appropriate response to transfusion, however she continues to have a slow bleed. I will repeat her hemoglobin this afternoon and keep her at least 1 more night for observation and transfuse as necessary. 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
[2021-11-22 11:34] LABS: Glucose Point of Care 214 mg/dL (70-110)
[2021-11-22 12:47] LABS: Hematocrit 24.9 % (37.0-47.0); Hemoglobin 7.3 g/dL (11.5-15.3)
[2021-11-22] MEDS: lactated ringers 1,000 ML 100 ML IV (15:21)
[2021-11-22 17:08] LABS: Glucose Point of Care 184 mg/dL (70-110)
[2021-11-22] MEDS: isosorbide mononitrate ER 30 mg Tablet 15 MG PO (21:06)
[2021-11-22 21:11] LABS: Glucose Point of Care 187 mg/dL (70-110)
[2021-11-23 00:20] VITALS: RESP 24
[2021-11-23] MEDS: oxyCODONE-APAP 5-325 mg Tablet 1 TAB PO ×2 (00:20→08:17)
[2021-11-23 03:22] VITALS: BP 105/60; PULSE 79; RESP 18; TEMP 37.1; O2SAT 95
[2021-11-23 04:57] LABS: Hematocrit 22.3 % (37.0-47.0); Hemoglobin 7.1 g/dL (11.5-15.3)
[2021-11-23 05:19] LABS: Anion Gap 13.2 (5-19); Blood Urea Nitrogen 10 mg/dL (8-23); Calcium 8.5 mg/dL (8.5-10.5); Carbon Dioxide 24 mmol/L (22-29); Chloride 105 mmol/L (98-107); Glomerular Filtration Rate 160.7 mL/min (90-130); Glucose 167 mg/dL (65-115); Osmolality Calculated 289 mOsm/kg (285-295); Potassium 4.2 mmol/L (3.5-5.1); Sodium 138 mmol/L (136-145)
[2021-11-23 06:37] LABS: Glucose Point of Care 133 mg/dL (70-110)
[2021-11-23 07:15] VITALS: BP 115/68; PULSE 73; RESP 16; TEMP 36.6; O2SAT 96
[2021-11-23] MEDS: levothyroxine 88 mcg Tablet PO (08:13)
[2021-11-23] MEDS: docusate sodium 100 mg Capsule PO (08:13)
[2021-11-23] MEDS: escitalopram 10 mg Tablet 20 MG PO (08:13)
[2021-11-23] MEDS: pantoprazole DR 40 mg Tablet PO (08:13)
[2021-11-23] MEDS: ALPRAZolam 0.5 mg Tablet 1 MG PO (08:13)
[2021-11-23 08:17] VITALS: RESP 18
[2021-11-23 10:53] LABS: Glucose Point of Care 316 mg/dL (70-110)
[2021-11-23 12:00] VITALS: BP 109/65; PULSE 84; RESP 18; TEMP 36.3; O2SAT 97
[2021-11-23] MEDS: insulin lispro 100 unit/1 mL SUBCUT (13:04)
--- NOTE | 2021-11-23 13:55 | PM.DCS ---
Discharge Providers Date of Admission: 11/21/21 18:46 Date of Discharge: November 23, 2021 Attending Provider at Admission: Warner Huertas MD Attending Provider at Discharge: Adilson Lofton DO Primary Care Provider: Rex Kumar DO Diagnoses at Discharge Discharge Diagnosis (1) Hx of mastectomy: Status: Acute (2) Acute blood loss anemia: Status: Acute Reason for Visit Reason for Visit: Hemoglobin 6.2-dr sent Hospital Course Hospital Course This is a very pleasant 66-year-old female who had a symptomatic right mastectomy with sentinel lymph node biopsy approximately 1 week ago for adenocarcinoma. After being home for approximately a week she developed bleeding into her drain that is in her mastectomy site. She does report that she took Aleve prior to this. She started getting dizzy and came to the office. She was found to have a hemoglobin of 6.2 and was admitted for acute blood loss anemia. She was transfused 1 unit PRBCs and had adequate response. She had no other issues during her hospitalization and was discharged home in good condition. Physical Exam Narrative: General : Patient is well developed , no acute distress, oriented x3 Head : Normal cephalic, a-traumatic. Ears : Pinnae and external canal are normal. Hearing is normal. Eyes : PERRLA, Sclera and injection are normal. No conjunctival discharge. Nose : Mucous membranes are without erythema. Throat : buccal mucosa is normal, gums are without significant recession or hypertrophy. Breast: Incisions intact without erythema or exudate. There is a moderate hematoma which is being drained by the drain. Drain has only dark old blood Lungs : Equal chest rise bilaterally, no use of accessory muscles, trachea is midline. Cor : Rate and rhythm are normal. Abdomen : Soft, ND, NT, no g/r/m Extremities : No edema, no cyanosis or clubbing, dorsalis pedis pulses are present bilaterally, non-tender to palpation of calves. Upper extremities are normal bilaterally. Back : non-tender to palpation, no CVA tenderness. Neuro : CN II - XII intact, Upper and lower extremities have equal and full strength Discharge Data Studies Completed and Pending Pending at discharge Category Date Time Status Basic Metabolic Panel AM LABS Lab 11/24/21 04:00 Ordered Laboratory Results Hgb 7.1 g/dL (11.5-15.3) L 11/23/21 04:25 Hct 22.3 % (37.0-47.0) L 11/23/21 04:25 Sodium 138 mmol/L (136-145) 11/23/21 04:25 Potassium 4.2 mmol/L (3.5-5.1) 11/23/21 04:25 Chloride 105 mmol/L (98-107) 11/23/21 04:25 Carbon Dioxide 24 mmol/L (22-29) 11/23/21 04:25 Anion Gap 13.2 (5-19) 11/23/21 04:25 BUN 10 mg/dL (8-23) 11/23/21 04:25 Creatinine 0.4 mg/dL (0.5-0.9) L 11/23/21 04:25 GFR Calculation 160.7 mL/min (90-130) H 11/23/21 04:25 Glucose 167 mg/dL (65-115) H 11/23/21 04:25 POC Glucose 316 mg/dL (70-110) H 11/23/21 10:45 Calculated Osmolality 289 mOsm/kg (285-295) 11/23/21 04:25 Calcium 8.5 mg/dL (8.5-10.5) 11/23/21 04:25 Blood Type A Positive 11/21/21 20:00 Rho(D) Type Positive 11/21/21 20:00 Antibody Screen Negative 11/21/21 20:00 Crossmatch See Detail 11/21/21 20:00 Vitals Last Vital Signs Temp 97.4 F L 11/23/21 12:00 Pulse 84 11/23/21 12:00 Resp 18 11/23/21 12:00 BP 109/65 11/23/21 12:00 Pulse Ox 97 11/23/21 12:00 O2 Del Method 11/23/21 12:00 Discharge Plan Discharge Patient Disposition: Home Condition: Stable Prescriptions: Continued acetaminophen 325 mg capsule 325 mg PO QID PRN (Reason: Pain) Hold Instructions: Resume on 11/23/21. atorvastatin 20 mg tablet 20 mg PO DAILY Qty: 90 4RF isosorbide mononitrate 30 mg tablet extended release 24 hr 45 mg PO DIRECTED Qty: 135 4RF Rx Instructions: 30mg in the morning, 15 mg at bedtime nitroglycerin [Nitrostat] 0.4 mg tablet, sublingual 0.4 mg SUBLINGUAL Q5M PRN (Reason: chest pain) Qty: 25 3RF metformin 500 mg tablet 500 mg PO BID alprazolam 1 mg tablet 1 mg PO TID levothyroxine 75 mcg capsule 88 mcg PO DAILY hydrocodone-acetaminophen 7.5-325 mg tablet 1 tab PO Q4H PRN (Reason: Pain) Hold Instructions: Resume on 11/23/21. escitalopram oxalate 20 mg tablet 20 mg PO DAILY pantoprazole [Protonix] 40 mg tablet,delayed release (DR/EC) 40 mg PO DAILY diclofenac sodium 1 % kit See Rx Instructions topical ONCE PRN (Reason: arthritis) Rx Instructions: topical once PRN; Discharge Orders: Discharge Order (Routine); Ordered 11/23/21 Ordered By: Adilson Lofton Referrals: Adilson Lofton DO [Physician] - 1 week Discharge Diet: Advance as tolerated Discharge Activity: Resume usual activity Patient Instructions: Opioid Safety Discharge Attestations Time Spent in Discharge Care*: less than 30 min Quality Metrics Clinical Quality Measures [ No reported AMI, CVA or VTE this stay] Coding Level of Care Code Acute Chg FW DC note Diagnoses Hx of mastectomy Z90.10 Acute blood loss anemia D62
[2021-11-23 14:58] VITALS: BP 133/77; PULSE 90; RESP 18; TEMP 36.6; O2SAT 97
== END 2021-11-23 16:49 | disposition home or self-care (01) ==
PROVIDERS: Surgery; Admitting Provider Surgery; PCP Family Medicine; Visit Provider Surgery
DX: D62 Acute posthemorrhagic anemia (principal); Z90.10 Acquired absence of unspecified breast and nipple; F41.9 Anxiety disorder, unspecified; Z85.3 Personal history of malignant neoplasm of breast; M19.90 Unspecified osteoarthritis, unspecified site; E03.9 Hypothyroidism, unspecified; R73.03 Prediabetes; Z79.84 Long term (current) use of oral hypoglycemic drugs
CPT/HCPCS: 36415; 36416; 36430; 80048; 82962; 85014; 85018; 86850; 86900; 86920; G0378; G0379; J1815; J2270; P9016

== ENCOUNTER → 2021-11-28 10:15 | Outpatient (BNVA) | payer MEDICARE, MEDICAID, SELFPAY | PROVIDERS: PCP Family Medicine; Visit Provider Surgery | DX: Z98.890 Other specified postprocedural states (principal); Z90.10 Acquired absence of unspecified breast and nipple | CPT/HCPCS: 99024 ==

== ENCOUNTER 2021-11-30 06:37 | Day surgery (SDC) | payer MEDICARE, MEDICAID, SELFPAY ==
[2021-11-28 12:43] VITALS: BMI 31.5
[2021-11-30 06:59] VITALS: BP 135/69; PULSE 88; RESP 18; TEMP 36.2; O2SAT 94
[2021-11-30] MEDS: sodium chloride 0.9% 1,000 ML 30 ML IV (07:25)
--- NOTE | 2021-11-30 07:53 | PM.HP ---
Providers/Chief Complaint Primary Care Provider: Rex Kumar DO Chief Complaint: Melanotic stools History of Present Illness Maria Maxwell is a 66 year old female here for EGD and colonoscopy for melanotic stools. She also gets heartburn infrequently Review of Systems General: Reports: 10 or more systems reviewed and unremarkable except in HPI and below Medications/Allergies Home Medications Medication Instructions Recorded Confirmed Last Taken Type alprazolam 1 mg tablet 1 mg PO TID 06/03/19 11/30/21 11/29/21 History metformin 500 mg tablet 500 mg PO BID 07/22/19 11/30/21 11/29/21 History atorvastatin 20 mg tablet 20 mg PO DAILY #90 tabs 04/11/21 11/30/21 11/30/21 Rx levothyroxine 75 mcg capsule 88 mcg PO DAILY 04/11/21 11/30/21 11/30/21 History nitroglycerin 0.4 mg sublingual 0.4 mg sublingual Q5M PRN chest 04/11/21 11/30/21 Unknown Rx tablet (Nitrostat) pain #25 tabs diclofenac sodium 1 % gel topical 1 ea topical ONCE PRN arthritis 11/01/21 11/30/21 Unknown History kit escitalopram oxalate 20 mg tablet 20 mg PO DAILY 11/01/21 11/30/21 11/30/21 History hydrocodone 7.5 mg-acetaminophen 1 tab PO Q4H PRN Pain 11/01/21 11/30/21 11/30/21 History 325 mg tablet pantoprazole 40 mg tablet,delayed 40 mg PO DAILY 11/01/21 11/30/21 11/30/21 History release (Protonix) isosorbide mononitrate 30 mg See Rx Instructions .Route .COMPLEX 11/28/21 11/30/21 11/30/21 History tablet,extended release 24 hr Allergies Allergy/AdvReac Type Severity Reaction Status Date / Time No Known Allergies Allergy Verified 11/28/21 12:41 PFSH Acute PFSH: Medical History Anxiety Breast cancer, right breast Diverticulitis DJD (degenerative joint disease) Hypothyroidism PAD (peripheral artery disease) Prediabetes Surgical History History of esophagogastroduodenoscopy (EGD) 10 + years ago Hx laparoscopic cholecystectomy Hx of colonoscopy 10 + years ago Hx of hysterectomy Hx of mastectomy S/P foot surgery, left S/P knee surgery Family History Mother Diabetes Hypertension Stroke Sister Cancer Dementia Brother Cancer Denies family history of CAD (coronary artery disease) Clotting disorder Hyperlipidemia Psychiatric illness Chronic kidney disease (CKD) Suicide Anesthesia complication Bleeding disorder Family history of premature coronary artery disease Lung disease Social History Smoking and tobacco status: never smoked Alcohol intake: never Vitals/I&O/Wt Last Vital Signs Temp 97.1 F L 11/30/21 06:59 Pulse 88 11/30/21 06:59 Resp 18 11/30/21 06:59 BP 135/69 11/30/21 06:59 Pulse Ox 94 11/30/21 06:59 O2 Del Method 11/30/21 06:59 Weight last 48 hrs Weight 156 lb Physical Exam Narrative: General : Patient is well developed , no acute distress, oriented x3 Head : Normal cephalic, a-traumatic. Ears : Pinnae and external canal are normal. Hearing is normal. Eyes : PERRLA, Sclera and injection are normal. No conjunctival discharge. Nose : Mucous membranes are without erythema. Throat : buccal mucosa is normal, gums are without significant recession or hypertrophy. Lungs : Equal chest rise bilaterally, no use of accessory muscles, trachea is midline. Cor : Rate and rhythm are normal. Abdomen : Soft, ND, NT, no g/r/m Extremities : No edema, no cyanosis or clubbing, dorsalis pedis pulses are present bilaterally, non-tender to palpation of calves. Upper extremities are normal bilaterally. Back : non-tender to palpation, no CVA tenderness. Neuro : CN II - XII intact, Upper and lower extremities have equal and full strength A&P Assessment and plan (1) Bloody stool: Status: Acute Plan EGD Colonoscopy The risks and benefits of the procedure, including bleeding, infection, intestinal perforation requiring surgery, missed lesion, or explained to the patient. He is understanding of the risks and wishes to proceed. 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
--- NOTE | 2021-11-30 08:31 | ANES.PREANE2 ---
Pre-Anesthetic Assessment Height/Weight: Height 1.5 m Weight 70.76 kg Temp Pulse Resp BP Pulse Ox O2 Del Method 97.1 F L 88 18 135/69 94 11/30/21 06:59 11/30/21 06:59 11/30/21 06:59 11/30/21 06:59 11/30/21 06:59 11/30/21 06:59 Preop Diagnosis: Right breast cancer Operation Date: 11/30/21 08:00 Proposed Procedures p EGD and Colonoscopy [id number],K92.1(Not Applicable) - DO edgar Burks Colonoscopy(Not Applicable) - Adilson Lofton DO Familial anesthetic complications: none Was Beta Christopher taken within 24 hours: N/A Was Clonidine taken within 24 hours: N/A Last intake: Intake Last Liquid Date 11/29/21 Last Liquid Time 23:30 Last Solid Date 11/28/21 Last Solid Time 00:00 Social No alcohol and No tobacco Exam alert, oriented x 3, clear to auscultation bilaterally and regular rate & rhythm Airway Submandibular: within normal limits Cervical ROM: within normal limits Mallampati: Class II CV/HEM Hypertension and Peripheral Vascular Disease GI Gastroesophageal Reflux Disease Metabolic Hyperlipidemia, Morbid Obesity and Thyroid Disease Neuropsych Anxiety Anesthetic Plan ASA status: 3 Anesthesia: MAC Medications/Allergies Home Medications Medication Instructions Recorded Confirmed Last Taken Type alprazolam 1 mg tablet 1 mg PO TID 06/03/19 11/30/21 11/29/21 History metformin 500 mg tablet 500 mg PO BID 07/22/19 11/30/21 11/29/21 History atorvastatin 20 mg tablet 20 mg PO DAILY #90 tabs 04/11/21 11/30/21 11/30/21 Rx levothyroxine 75 mcg capsule 88 mcg PO DAILY 04/11/21 11/30/21 11/30/21 History nitroglycerin 0.4 mg sublingual 0.4 mg sublingual Q5M PRN chest 04/11/21 11/30/21 Unknown Rx tablet (Nitrostat) pain #25 tabs diclofenac sodium 1 % gel topical 1 ea topical ONCE PRN arthritis 11/01/21 11/30/21 Unknown History kit escitalopram oxalate 20 mg tablet 20 mg PO DAILY 11/01/21 11/30/21 11/30/21 History hydrocodone 7.5 mg-acetaminophen 1 tab PO Q4H PRN Pain 11/01/21 11/30/21 11/30/21 History 325 mg tablet pantoprazole 40 mg tablet,delayed 40 mg PO DAILY 11/01/21 11/30/21 11/30/21 History release (Protonix) isosorbide mononitrate 30 mg See Rx Instructions .Route .COMPLEX 11/28/21 11/30/21 11/30/21 History tablet,extended release 24 hr Allergies Allergy/AdvReac Type Severity Reaction Status Date / Time No Known Allergies Allergy Verified 11/28/21 12:41 Current Medications Generic Name Dose Route Start Last Admin Trade Name Freq PRN Reason Stop Dose Admin Sodium Chloride 1,000 mls @ 30 mls/hr 11/30/21 07:00 11/30/21 07:25 Sodium Chloride 0.9% IV 12/01/21 06:59 30 mls/hr .Q24H ELIZA Administration PFSH Anesthesia Medical History Anxiety Breast cancer, right breast Diverticulitis DJD (degenerative joint disease) Hypothyroidism PAD (peripheral artery disease) Prediabetes Surgical History History of esophagogastroduodenoscopy (EGD) 10 + years ago Hx laparoscopic cholecystectomy Hx of colonoscopy 10 + years ago Hx of hysterectomy Hx of mastectomy S/P foot surgery, left S/P knee surgery Family History Mother Diabetes Hypertension Stroke Sister Cancer Dementia Brother Cancer Denies family history of CAD (coronary artery disease) Clotting disorder Hyperlipidemia Psychiatric illness Chronic kidney disease (CKD) Suicide Anesthesia complication Bleeding disorder Family history of premature coronary artery disease Lung disease Social History Smoking and tobacco status: never smoked Alcohol intake: never Data Anesthesia Cardiac Studies: No Data to Display
[2021-11-30 08:34] VITALS: BP 123/78; PULSE 86; RESP 18; TEMP 36.2; O2SAT 96
[2021-11-30 08:48] VITALS: BP 136/74; PULSE 84; RESP 18; TEMP 36.2; O2SAT 92
--- NOTE | 2021-11-30 13:37 | ANE.PACU2 ---
Inpatient post-anesthesia follow up: Airway intact: Yes Vital signs: Temperature 97.2 F Pulse Rate 84 Respiratory Rate 18 Blood Pressure 136/74 Pulse Oximetry 92 Oxygen Delivery Me thod Room Air Oxygen Flow Rate Fraction of Inspir ed Oxygen Hydration adequate: Yes Nausea and vomiting: No Pain level: 1 Mental status: Baseline
== END 2021-11-30 09:10 | disposition home or self-care (01) ==
PROVIDERS: PCP Family Medicine; Visit Provider Surgery
PROC: 0DJ08ZZ Inspection of Upper Intestinal Tract, Via Natural or Artificial Opening Endoscopic (ICD-10-PCS; CPT 43235; principal; 2021-11-30 08:00)
PROC: 0DJD8ZZ Inspection of Lower Intestinal Tract, Via Natural or Artificial Opening Endoscopic (ICD-10-PCS; CPT 45378; 2021-11-30 08:00)
DX: K92.1 Melena (principal); D12.2 Benign neoplasm of ascending colon; D12.4 Benign neoplasm of descending colon; K29.50 Unspecified chronic gastritis without bleeding; Z85.3 Personal history of malignant neoplasm of breast; I10 Essential (primary) hypertension; K21.9 Gastro-esophageal reflux disease without esophagitis; E78.5 Hyperlipidemia, unspecified; E66.01 Morbid (severe) obesity due to excess calories; Z68.31 Body mass index [BMI] 31.0-31.9, adult; F41.9 Anxiety disorder, unspecified; E03.9 Hypothyroidism, unspecified
CPT/HCPCS: 43239; 45385; 88305; J2704; J7030

== ENCOUNTER → 2021-12-14 10:04 | Outpatient (BNVA) | payer MEDICARE, MEDICAID, SELFPAY | PROVIDERS: PCP Family Medicine; Visit Provider Surgery | DX: C50.911 Malignant neoplasm of unspecified site of right female breast (principal); K29.70 Gastritis, unspecified, without bleeding; D36.9 Benign neoplasm, unspecified site | CPT/HCPCS: 99212 ==

== ENCOUNTER 2021-12-22 08:42 | Oncology outpatient (recurring) (ONCR) | payer MEDICARE, MEDICAID, SELFPAY ==
[2021-12-21 14:48] LABS: Basophils % 0.8 %; Eosinophils # 0.1 10^3/uL (0.0-0.8); Eosinophils % 2.5 %; Hematocrit 28.8 % (37.0-47.0); Hemoglobin 8.7 g/dL (11.5-15.3); Lymphocytes # 1.8 10^3/uL (0.8-4.8); Lymphocytes % 36.8 %; Mean Corpuscular HGB Conc 30.2 g/dL (30.0-36.0); Mean Corpuscular Hemoglobin 28.8 pg (28.0-34.0); Mean Corpuscular Volume 95.4 fl (81-99); Mean Platelet Volume 9.3 fL (7.4-10.4); Monocytes # 0.3 10^3/uL (0.2-0.9); Monocytes % 7.1 %; Neutrophils # 2.53 10^3/uL (1.8-7.7); Neutrophils % 52.6 %; Nucleated Red Blood Cells % 0 %; Platelet Count 175 10^3/cmm (130-400); Red Blood Count 3.02 10^6/uL (4.1-5.3); Red Cell Distribution Width 14.4 % (12.1-15.1); White Blood Count 4.8 10^3/uL (4.0-10.0)
[2021-12-21 15:08] LABS: Alanine Aminotransferase 20 U/L (0-33); Albumin Level 3.5 g/dL (3.5-5.2); Alkaline Phosphatase 236 U/L (35-105); Anion Gap 12.7 (5-19); Aspartate Amino Transferase 35 U/L (0-32); Blood Urea Nitrogen 12 mg/dL (8-23); Calcium 8.6 mg/dL (8.5-10.5); Carbon Dioxide 26 mmol/L (22-29); Chloride 100 mmol/L (98-107); Globulin 4.3 g/dL (1.3-4.6); Glomerular Filtration Rate 124.2 mL/min (90-130); Glucose 114 mg/dL (65-115); Osmolality Calculated 279 mOsm/kg (285-295); Potassium 4.7 mmol/L (3.5-5.1); Sodium 134 mmol/L (136-145); Total Bilirubin 0.4 mg/dL (0.15-1.2); Total Protein 7.8 g/dL (6.6-8.7)
[2021-12-22 11:31] LABS: Ferritin 44 ng/mL (15-150); Iron 42 ug/dL (37-145); Percent Saturation 10.8 % (20-50); Total Iron Binding Capacity 386 mcg/dl; Unsaturated Iron Binding 344 ug/dL (112-347)
[2021-12-22 11:47] LABS: Vitamin B12 641 pg/mL (232-1245)
== END 2021-12-27 23:59 | disposition home or self-care (01) ==
PROVIDERS: PCP Family Medicine; Visit Provider Internal Medicine Hematology & Oncology
DX: C50.911 Malignant neoplasm of unspecified site of right female breast (principal); D62 Acute posthemorrhagic anemia; K92.1 Melena; Z90.11 Acquired absence of right breast and nipple; K63.5 Polyp of colon; Z53.9 Procedure and treatment not carried out, unspecified reason
CPT/HCPCS: 80053; 82607; 82728; 83540; 83550; 85025; 99214

== ENCOUNTER 2022-01-24 12:27 | Oncology outpatient (recurring) (ONCR) | payer MEDICARE, MEDICAID, SELFPAY ==
[2022-01-24 11:11] LABS: Basophils % 0.6 %; Eosinophils # 0.1 10^3/uL (0.0-0.8); Eosinophils % 3.3 %; Hematocrit 27.5 % (37.0-47.0); Hemoglobin 8.5 g/dL (11.5-15.3); Lymphocytes # 1.6 10^3/uL (0.8-4.8); Lymphocytes % 44.4 %; Mean Corpuscular HGB Conc 30.9 g/dL (30.0-36.0); Mean Corpuscular Hemoglobin 27.7 pg (28.0-34.0); Mean Corpuscular Volume 89.6 fl (81-99); Mean Platelet Volume 9.5 fL (7.4-10.4); Monocytes # 0.2 10^3/uL (0.2-0.9); Monocytes % 6.4 %; Neutrophils # 1.62 10^3/uL (1.8-7.7); Nucleated Red Blood Cells % 0 %; Platelet Count 130 10^3/cmm (130-400); Red Blood Count 3.07 10^6/uL (4.1-5.3); Red Cell Distribution Width 13.9 % (12.1-15.1); White Blood Count 3.6 10^3/uL (4.0-10.0)
[2022-01-24 11:27] LABS: Alanine Aminotransferase 31 U/L (0-33); Albumin Level 3.6 g/dL (3.5-5.2); Alkaline Phosphatase 201 U/L (35-105); Anion Gap 12.8 (5-19); Aspartate Amino Transferase 46 U/L (0-32); Blood Urea Nitrogen 14 mg/dL (8-23); Calcium 9.5 mg/dL (8.5-10.5); Carbon Dioxide 29 mmol/L (22-29); Chloride 96 mmol/L (98-107); Globulin 3.9 g/dL (1.3-4.6); Glomerular Filtration Rate 100.6 mL/min (90-130); Glucose 144 mg/dL (65-115); Osmolality Calculated 279 mOsm/kg (285-295); Potassium 4.8 mmol/L (3.5-5.1); Sodium 133 mmol/L (136-145); Total Bilirubin 0.4 mg/dL (0.15-1.2); Total Protein 7.5 g/dL (6.6-8.7)
== END 2022-01-26 23:59 | disposition home or self-care (01) ==
PROVIDERS: PCP Family Medicine; Visit Provider Internal Medicine Hematology & Oncology
DX: C50.911 Malignant neoplasm of unspecified site of right female breast (principal); Z90.11 Acquired absence of right breast and nipple; K63.5 Polyp of colon; Z17.0 Estrogen receptor positive status [ER+]; Z79.811 Long term (current) use of aromatase inhibitors; D64.9 Anemia, unspecified
CPT/HCPCS: 36415; 80053; 85025; 99214

== ENCOUNTER 2022-02-27 11:48 | Oncology outpatient (recurring) (ONCR) | payer MEDICARE, MEDICAID, SELFPAY ==
[2022-02-27 12:05] LABS: Basophils % 0.9 %; Eosinophils # 0.1 10^3/uL (0.0-0.8); Eosinophils % 2.6 %; Hematocrit 30.5 % (37.0-47.0); Hemoglobin 9.6 g/dL (11.5-15.3); Lymphocytes # 1.3 10^3/uL (0.8-4.8); Lymphocytes % 38.3 %; Mean Corpuscular HGB Conc 31.5 g/dL (30.0-36.0); Mean Corpuscular Hemoglobin 28.5 pg (28.0-34.0); Mean Corpuscular Volume 90.5 fl (81-99); Mean Platelet Volume 9.4 fL (7.4-10.4); Monocytes # 0.3 10^3/uL (0.2-0.9); Monocytes % 7.1 %; Neutrophils # 1.78 10^3/uL (1.8-7.7); Neutrophils % 50.8 %; Nucleated Red Blood Cells % 0 %; Platelet Count 125 10^3/cmm (130-400); Red Blood Count 3.37 10^6/uL (4.1-5.3); Red Cell Distribution Width 15.8 % (12.1-15.1); White Blood Count 3.5 10^3/uL (4.0-10.0)
[2022-02-27 12:26] LABS: Ferritin 18 ng/mL (15-150); Iron 145 ug/dL (37-145); Percent Saturation 38.6 % (20-50); Total Iron Binding Capacity 375 mcg/dl; Unsaturated Iron Binding 230 ug/dL (112-347)
== END 2022-03-28 23:59 | disposition home or self-care (01) ==
PROVIDERS: PCP Family Medicine; Visit Provider Internal Medicine Hematology & Oncology
DX: C50.811 Malignant neoplasm of overlapping sites of right female breast (principal); Z17.0 Estrogen receptor positive status [ER+]; Z90.11 Acquired absence of right breast and nipple; K52.9 Noninfective gastroenteritis and colitis, unspecified; Z86.010 Personal history of colon polyps; Z79.818 Long term (current) use of other agents affecting estrogen receptors and estrogen levels; D64.9 Anemia, unspecified; Z79.899 Other long term (current) drug therapy
CPT/HCPCS: 82728; 83540; 83550; 85025; 99214

== ENCOUNTER → 2022-03-27 11:12 | Outpatient (BNVA) | payer MEDICARE, MEDICAID, SELFPAY | PROVIDERS: PCP Family Medicine; Visit Provider Surgery | DX: M79.2 Neuralgia and neuritis, unspecified (principal); N64.52 Nipple discharge | CPT/HCPCS: 99213 ==

== ENCOUNTER 2022-04-03 13:46 | Outpatient (CLI) | payer MEDICARE, MEDICAID, SELFPAY ==
--- NOTE | 2022-04-03 14:12 | XR_ITS ---
WS: [email or web address] AP standing views of both knees, 04/03/2022 Clinical Data: knee pains, worse on left Comparison: Left and right knee, 04/05/2021 Findings: AP view right knee: There is medial joint compartment narrowing with spurring of the medial and lateral femoral condyle. There is a spur of the lateral tibial plateau. AP view left knee: There is medial joint compartment narrowing with a spur of the medial tibial plateau. XR/[place] [id number] Impression: Bilateral medial joint compartment narrowing of the knees.
[2022-04-03 14:38] LABS: Basophils % 0.6 %; Eosinophils # 0.1 10^3/uL (0.0-0.8); Eosinophils % 2.7 %; Hematocrit 33.4 % (37.0-47.0); Hemoglobin 10.2 g/dL (11.5-15.3); Lymphocytes # 2.3 10^3/uL (0.8-4.8); Lymphocytes % 43.5 %; Mean Corpuscular HGB Conc 30.5 g/dL (30.0-36.0); Mean Corpuscular Hemoglobin 28.2 pg (28.0-34.0); Mean Corpuscular Volume 92.3 fl (81-99); Monocytes # 0.3 10^3/uL (0.2-0.9); Monocytes % 6.2 %; Neutrophils # 2.43 10^3/uL (1.8-7.7); Neutrophils % 46.8 %; Nucleated Red Blood Cells % 0 %; Platelet Count 164 10^3/cmm (130-400); Red Blood Count 3.62 10^6/uL (4.1-5.3); Red Cell Distribution Width 16.9 % (12.1-15.1); White Blood Count 5.2 10^3/uL (4.0-10.0)
[2022-04-03 15:32] LABS: Ferritin 35 ng/mL (15-150); Iron 77 ug/dL (37-145); Percent Saturation 21.7 % (20-50); Total Iron Binding Capacity 354 mcg/dl; Unsaturated Iron Binding 277 ug/dL (112-347)
== END 2022-04-03 13:47 | disposition home or self-care (01) ==
LOC: RAD 13:48
PROVIDERS: Internal Medicine Hematology & Oncology; PCP Family Medicine; Visit Provider Family Medicine
DX: C50.911 Malignant neoplasm of unspecified site of right female breast (principal); K92.1 Melena; M19.90 Unspecified osteoarthritis, unspecified site; M25.561 Pain in right knee; M25.562 Pain in left knee; C50.811 Malignant neoplasm of overlapping sites of right female breast; Z17.0 Estrogen receptor positive status [ER+]; Z90.11 Acquired absence of right breast and nipple; D12.4 Benign neoplasm of descending colon; D50.9 Iron deficiency anemia, unspecified; Z79.818 Long term (current) use of other agents affecting estrogen receptors and estrogen levels; Z79.899 Other long term (current) drug therapy
CPT/HCPCS: 73565; 82728; 83540; 83550; 85025; 99214

== ENCOUNTER → 2022-04-10 14:06 | Outpatient (BNVA) | payer MEDICARE, MEDICAID, SELFPAY | PROVIDERS: PCP Family Medicine; Visit Provider Internal Medicine Cardiovascular Disease | DX: R07.9 Chest pain, unspecified (principal); I73.9 Peripheral vascular disease, unspecified; I10 Essential (primary) hypertension | CPT/HCPCS: 93005; 99214 ==

== ENCOUNTER 2022-04-20 09:26 | Outpatient (CLI) | payer MEDICARE, MEDICAID, SELFPAY ==
--- NOTE | 2022-04-20 09:31 | MM_ITS ---
WS: [email or web address] BILATERAL 3D TOMOSYNTHESIS DIGITAL DIAGNOSTIC MAMMOGRAPHY WITH CAD CLINICAL INFORMATION: NIPPLE DISCHARGE HISTORY: RIGHT mastectomy. LEFT nipple discharge. COMPARISON: September 18, 2021 TECHNIQUE: Bilateral CC, MLO, and ML views. FINDINGS: Scattered fibroglandular densities bilaterally. Slightly more inversion involving the LEFT nipple tod ay. Underlying parenchymal tissue appears similar to previous. Ultrasound is pending of this area. RIGHT mastectomy has been performed compared to previous. Small amount of residual breast tissue. No new suspicious lesions RIGHT breast. ULTRASOUND BREAST LEFT TECHNIQUE: Ultrasound left breast focused area of concern. CLINICAL INFORMATION: NIPPLE DISCHARGE FINDINGS: Ultrasound LEFT breast at the areola. Nipple inversion. Hypoechoic ovoid lesion likely ductal dilatat ion with some internal debris or soft tissue. Associated ductal ectasia. No other suspicious lesions. Area of ductal dilatation measures approximately 10.9 x 4.3 x 10.7 mm. This is indeterminant and con sidering nipple inversion and recent discharge, recommend further evaluation with ultrasound-guided b iopsy. MM/[place] [id number] IMPRESSION: BI-RADS: 4-Suspicious Finding-Biopsy Should Be Considered FOLLOW UP: US Guided Biopsy Recommended Recommend ultrasound-guided biopsy hypoechoic subareolar breast lesion.
== END 2022-04-20 09:27 | disposition home or self-care (01) ==
LOC: RAD 09:28
PROVIDERS: PCP Family Medicine; Visit Provider Surgery
DX: N63.25 Unspecified lump in the left breast, overlapping quadrants (principal); N64.52 Nipple discharge
CPT/HCPCS: 76642; 77061; 77062; G0279

== ENCOUNTER → 2022-05-02 11:11 | Outpatient (BNVA) | payer MEDICARE, MEDICAID, SELFPAY | PROVIDERS: PCP Family Medicine; Referring Provider Family Medicine; Visit Provider Orthopaedic Surgery | DX: M17.0 Bilateral primary osteoarthritis of knee (principal) | CPT/HCPCS: 20610; 99213; J0702; J3490 ==

== ENCOUNTER 2022-05-25 06:50 | Outpatient (CLI) | payer MEDICARE, MEDICAID, SELFPAY ==
[2022-05-25 07:51] VITALS: BMI 32.3
--- NOTE | 2022-05-25 07:52 | ECG_ITS ---
[facility] Test Date: 2022-05-25 Pat Name: Maria Maxwell Department: Room: Gender: Female Patent Engineer: Shiela Bosch : 1955 Requested By: Kimberly Sands Order Number: [id number] Aries MD: Kimberly Sands M.D. Interpretive Statements NAME OF STUDY: LEXISCAN SESTAMIBI STRESS TEST INDICATION: Chest Pain PROCEDURE: At the baseline, the blood pressure was 145/82 mm Hg with a heart rate of 73 bpm. The electrocardiogram showed sinus rhythm, normal axis. Non specific ST-T wave changes. ??? The Lexiscan was infused over a period of 20 seconds. A total of 0.4 milligrams of Lexiscan was infused. The stress phase was continued for a total of 5 minutes. Heart rate at the end of the stress phase was 83 bpm with a blood pressure of 140/77 mm Hg. The EKG at the peak infusion revealed no significant ST-T wave changes. The study was terminated due to protocol completion. ??? Sestamibi was injected 20 seconds after the Lexiscan infusion. ??? Blood pressure at the end of the recovery phase was 141/75 mm Hg with a heart rate of 77 beats per minute. ??? CONCLUSION: 1. No significant EKG changes with the LexiScan infusion. 2. No LexiScan induced chest pain or cardiac arrhythmia. 3. Normal blood pressure and heart rate response. 4. Sestamibi/sestamibi perfusion scan pending; see separate report. Electronically Signed On 05-30-2022 15:16:35 LIVING ADVISOR by Kimberly Sands M.D. [email or web address]
--- NOTE | 2022-05-25 07:52 | NMCV_ITS ---
NM carroll perf SPECT r/s* [id number] Maria Maxwell Age: 66 Gender: F : 1955 Exam Date: 05/25/2022 08:15 Ordering Phys: Kimberly Sands MD ([email or web address]) Technologist: KRIS Babcock Exam Location: [facility] Indications: EXERTIONAL SHORTNESS OF BREATH STRESS TEST [facility] IMAGE PROTOCOL Rest/Stress 1 Lexiscan Day Radiopharmaceutical Dose (mCi) Administration Site Administered by Rest: Tc-99m 10.6 IV KRIS Luis Sestamibi Stress:Tc-99m 32.9 IV KRIS Luis Sestamibi Rest: 25-May-2022 60 Discovery 630 Stress: 25-May-2022 30 Discovery 630 0.4mg Lexiscan. Supine position only as patient was unable to lay prone. SPECT RESULTS Technical Quality: Excellent Raw Data Analysis: Normal Image Corrections: No attenuation or motion correction applied Summed Stress Score: 4 Summed Rest Score: 0 Summed Difference Score: 4 PERFUSION FINDINGS Small sized perfusion abnormality of mild severity of mid to apical lateral wall on stress images. FUNCTIONAL RESULTS (calculated via Gated SPECT) Stress Image LV EF (%): 82 Stress EDV (mL):90 TID: 1 Stress ESV (mL):16 FUNCTIONAL FINDINGS: The left ventricle is normal in size. Transient Ischemia Dilatation of 1. The left ventricular ejection fraction is normal with a value of 82%. There is hyperdynamic left ventricular wall thickening. IMPRESSIONS 1. Small sized perfusion abnormality of mild severity of mid to apical lateral wall. This may represent small area of ischemia in circumflex artery territory. 2. Overall left ventricular systolic function is normal without regional wall motion abnormalities, LVEF=82%. 3. EKG portion of the study will be reported separately. Kimberly Sands MD (Electronically Signed) Final Date: 26 May 2022 22:32 S
[2022-05-25 08:45] VITALS: BP 141/75; PULSE 78
[2022-05-25] MEDS: regadenoson 0.4 Mg/5 ml Syringe IVP (08:45)
[2022-05-25] MEDS: ondansetron 2 mg/ML SDV 2 mL 4 MG IVP (08:50)
== END 2022-05-25 06:51 | disposition home or self-care (01) ==
LOC: CDL 06:52
PROVIDERS: PCP Family Medicine; Visit Provider Internal Medicine Cardiovascular Disease
DX: R07.9 Chest pain, unspecified (principal)
CPT/HCPCS: 36415; 78452; 93017; 96374; 96375; A9500; J2405; J2785

== ENCOUNTER 2022-05-25 15:45 | Oncology outpatient (recurring) (ONCR) | payer MEDICARE, MEDICAID, SELFPAY ==
[2022-05-11 09:03] LABS: Basophils % 0.2 %; Eosinophils # 0.2 10^3/uL (0.0-0.8); Eosinophils % 4.3 %; Hematocrit 34.3 % (37.0-47.0); Hemoglobin 10.5 g/dL (11.5-15.3); Lymphocytes # 1.7 10^3/uL (0.8-4.8); Mean Corpuscular HGB Conc 30.6 g/dL (30.0-36.0); Mean Corpuscular Hemoglobin 29.3 pg (28.0-34.0); Mean Corpuscular Volume 95.8 fl (81-99); Mean Platelet Volume 10.4 fL (7.4-10.4); Monocytes # 0.3 10^3/uL (0.2-0.9); Monocytes % 6.3 %; Neutrophils # 2.65 10^3/uL (1.8-7.7); Nucleated Red Blood Cells % 0 %; Platelet Count 144 10^3/cmm (130-400); Red Blood Count 3.58 10^6/uL (4.1-5.3); Red Cell Distribution Width 15.9 % (12.1-15.1); White Blood Count 4.9 10^3/uL (4.0-10.0)
[2022-05-11 09:24] LABS: Alanine Aminotransferase 42 U/L (0-33); Albumin Level 3.2 g/dL (3.5-5.2); Alkaline Phosphatase 164 U/L (35-105); Aspartate Amino Transferase 51 U/L (0-32); Blood Urea Nitrogen 7 mg/dL (8-23); Calcium 8.8 mg/dL (8.5-10.5); Carbon Dioxide 27 mmol/L (22-29); Chloride 103 mmol/L (98-107); Ferritin 33 ng/mL (15-150); Globulin 3.4 g/dL (1.3-4.6); Glomerular Filtration Rate 124.2 mL/min (90-130); Glucose 241 mg/dL (65-115); Iron 206 ug/dL (37-145); Osmolality Calculated 288 mOsm/kg (285-295); Percent Saturation 70.3 % (20-50); Sodium 136 mmol/L (136-145); Total Bilirubin 0.4 mg/dL (0.15-1.2); Total Iron Binding Capacity 293 mcg/dl; Total Protein 6.6 g/dL (6.6-8.7); Unsaturated Iron Binding 87 ug/dL (112-347)
[2022-05-11 09:28] LABS: Anion Gap 10.2 (5-19); Potassium 4.2 mmol/L (3.5-5.1)
[2022-05-11 09:41] LABS: Slide Review Slide Review Perform
== END 2022-05-29 23:59 | disposition home or self-care (01) ==
LOC: CDL 05-26 → RAD 05-26 → ONCMED 05-30 12:13
PROVIDERS: PCP Family Medicine; Visit Provider Internal Medicine Hematology & Oncology
DX: C50.811 Malignant neoplasm of overlapping sites of right female breast (principal)
CPT/HCPCS: 36415; 80053; 82728; 83540; 83550; 85025; 99214; 99215

== ENCOUNTER 2022-06-05 07:41 | Outpatient (CLI) | payer MEDICARE, MEDICAID, SELFPAY ==
--- NOTE | 2022-06-05 07:59 | US_ITS ---
WS: [email or web address] ULTRASOUND LEFT BREAST HISTORY: ABNORMAL MAMMO COMPARISON: 04/20/2022, 09/18/2021, 03/13/2016 TECHNIQUE: 2-D and Doppler. The recently described very mild asymmetry and nodule in the subareolar region is not definitely iden tified today. There are small ducts in the subareolar location which appear normal. No intraluminal d ebris or ectasia. No increased vascularity. Patient's nipple is inverted but stable for 10 years as i ndicated by the patient. No biopsy will be performed today as it there is no identifiable area of suspicion. US/US breast LT limited* [id number] IMPRESSION: BI-RADS: 3-Probably Benign FOLLOW-UP: 6 Month Follow-up 1. No biopsy will be performed today of the asymmetry in the subareolar LEFT b reast described on 04/20/2022. There is no reproducible abnormality. 2. Recommend diagnostic LEFT mammogram and possible ultrasound in 6 months to confirm stability. 3. This was discussed in detail with the patient. This does not explain the pa vikas's bloody nipple discharge.
== END 2022-06-05 07:42 | disposition home or self-care (01) ==
PROVIDERS: PCP Family Medicine; Visit Provider Surgery
DX: R92.8 Other abnormal and inconclusive findings on diagnostic imaging of breast (principal)
CPT/HCPCS: 76642

== ENCOUNTER 2022-06-20 06:15 | Outpatient (CLI) | payer MEDICARE, MEDICAID, SELFPAY ==
--- NOTE | 2022-06-20 07:00 | US_ITS ---
WS: [email or web address] RIGHT UPPER QUADRANT ULTRASOUND HISTORY: Abnormal Liver Enzymes COMPARISON: 04/26/2016 Liver: 19.7 cm in length. Enlarged and very heterogeneous. Coarse diffuse echotexture with loss of th e normal portal triads visualization. No mass identified but the entire liver is not well visualized. No bile duct dilatation is evident. Portal Vein: Normal hepatopetal flow with monophasic waveform. Gallbladder: Status post cholecystectomy. CBD: 0.3 cm Pancreas: Poorly visualized. The head appears normal. The tail is completely obscured. Right kidney: 10.3 cm in length. Normal size and echogenicity. No hydronephrosis or mass. Aorta and IVC: Unremarkable abdominal aorta and IVC. No ascites. US/US abdomen limited [id number] IMPRESSION: 1. Marked hepatomegaly and diffusely abnormal liver parenchyma. Consider hepat ic steatosis and diffuse hepatocellular disease such as cirrhosis. 2. No mass identified but the entire liver is not visualized. 3. Prior cholecystectomy.
== END 2022-06-20 06:16 | disposition home or self-care (01) ==
LOC: RAD 06:16
PROVIDERS: PCP Family Medicine; Visit Provider Internal Medicine Hematology & Oncology
DX: R74.8 Abnormal levels of other serum enzymes (principal); R16.0 Hepatomegaly, not elsewhere classified; Z90.10 Acquired absence of unspecified breast and nipple; N64.52 Nipple discharge
CPT/HCPCS: 76705; 99213

== ENCOUNTER 2022-06-22 07:48 | Oncology outpatient (recurring) (ONCR) | payer MEDICARE, MEDICAID, SELFPAY ==
[2022-06-22 08:22] LABS: Eosinophils # 0.1 10^3/uL (0.0-0.8); Eosinophils % 2.4 %; Hematocrit 34.6 % (37.0-47.0); Hemoglobin 10.9 g/dL (11.5-15.3); Lymphocytes # 1.7 10^3/uL (0.8-4.8); Lymphocytes % 45.7 %; Mean Corpuscular HGB Conc 31.5 g/dL (30.0-36.0); Mean Corpuscular Hemoglobin 30.4 pg (28.0-34.0); Mean Corpuscular Volume 96.4 fl (81-99); Mean Platelet Volume 10.1 fL (7.4-10.4); Monocytes # 0.3 10^3/uL (0.2-0.9); Monocytes % 7.1 %; Neutrophils # 1.66 10^3/uL (1.8-7.7); Neutrophils % 43.5 %; Nucleated Red Blood Cells % 0 %; Platelet Count 116 10^3/cmm (130-400); Red Blood Count 3.59 10^6/uL (4.1-5.3); Red Cell Distribution Width 14.6 % (12.1-15.1); White Blood Count 3.8 10^3/uL (4.0-10.0)
[2022-06-22 08:39] LABS: Alanine Aminotransferase 45 U/L (0-33); Albumin Level 3.7 g/dL (3.5-5.2); Alkaline Phosphatase 209 U/L (35-105); Aspartate Amino Transferase 62 U/L (0-32); Blood Urea Nitrogen 12 mg/dL (8-23); Calcium 9.1 mg/dL (8.5-10.5); Carbon Dioxide 25 mmol/L (22-29); Chloride 100 mmol/L (98-107); Globulin 3.6 g/dL (1.3-4.6); Glomerular Filtration Rate 84.2 mL/min (90-130); Glucose 127 mg/dL (65-115); Osmolality Calculated 281 mOsm/kg (285-295); Sodium 135 mmol/L (136-145); Total Bilirubin 0.5 mg/dL (0.15-1.2); Total Protein 7.3 g/dL (6.6-8.7)
[2022-06-22 08:40] LABS: Anion Gap 14.1 (5-19); Potassium 4.1 mmol/L (3.5-5.1)
== END 2022-06-26 23:59 | disposition home or self-care (01) ==
PROVIDERS: PCP Family Medicine; Visit Provider Internal Medicine Hematology & Oncology
DX: C50.811 Malignant neoplasm of overlapping sites of right female breast (principal); Z17.0 Estrogen receptor positive status [ER+]; Z90.11 Acquired absence of right breast and nipple; D12.4 Benign neoplasm of descending colon; K29.70 Gastritis, unspecified, without bleeding; R16.0 Hepatomegaly, not elsewhere classified; K76.0 Fatty (change of) liver, not elsewhere classified; R74.01 Elevation of levels of liver transaminase levels; D61.818 Other pancytopenia; D64.9 Anemia, unspecified; Z79.811 Long term (current) use of aromatase inhibitors; Z79.899 Other long term (current) drug therapy
CPT/HCPCS: 36415; 80053; 85025; 99214

== ENCOUNTER 2022-08-10 10:57 | Oncology outpatient (recurring) (ONCR) | payer MEDICARE, MEDICAID, SELFPAY ==
[2022-07-30 09:05] LABS: Basophils % 0.6 %; Eosinophils # 0.1 10^3/uL (0.0-0.8); Eosinophils % 1.5 %; Hematocrit 33.8 % (37.0-47.0); Hemoglobin 10.9 g/dL (11.5-15.3); Lymphocytes # 1.4 10^3/uL (0.8-4.8); Lymphocytes % 29.5 %; Mean Corpuscular HGB Conc 32.2 g/dL (30.0-36.0); Mean Corpuscular Hemoglobin 31.2 pg (28.0-34.0); Mean Corpuscular Volume 96.8 fl (81-99); Mean Platelet Volume 10.6 fL (7.4-10.4); Monocytes # 0.3 10^3/uL (0.2-0.9); Monocytes % 5.4 %; Neutrophils # 3.01 10^3/uL (1.8-7.7); Neutrophils % 62.4 %; Nucleated Red Blood Cells % 0 %; Platelet Count 140 10^3/cmm (130-400); Red Blood Count 3.49 10^6/uL (4.1-5.3); Red Cell Distribution Width 13.6 % (12.1-15.1); White Blood Count 4.8 10^3/uL (4.0-10.0)
[2022-07-30 09:28] LABS: Albumin Level 3.3 g/dL (3.5-5.2); Alkaline Phosphatase 198 U/L (35-105); Blood Urea Nitrogen 11 mg/dL (8-23); Calcium 9.1 mg/dL (8.5-10.5); Carbon Dioxide 25 mmol/L (22-29); Chloride 100 mmol/L (98-107); Globulin 4.4 g/dL (1.3-4.6); Glomerular Filtration Rate 100.6 mL/min (90-130); Glucose 153 mg/dL (65-115); Osmolality Calculated 280 mOsm/kg (285-295); Sodium 134 mmol/L (136-145); Total Bilirubin 0.4 mg/dL (0.15-1.2); Total Protein 7.7 g/dL (6.6-8.7)
[2022-07-30 09:39] LABS: Alanine Aminotransferase 27 U/L (0-33); Anion Gap 13.5 (5-19); Aspartate Amino Transferase 53 U/L (0-32); Potassium 4.5 mmol/L (3.5-5.1)
== END 2022-08-26 23:59 | disposition home or self-care (01) ==
PROVIDERS: PCP Family Medicine; Visit Provider Internal Medicine Hematology & Oncology
DX: C50.811 Malignant neoplasm of overlapping sites of right female breast (principal); Z17.0 Estrogen receptor positive status [ER+]; Z90.11 Acquired absence of right breast and nipple; Z79.811 Long term (current) use of aromatase inhibitors; Z78.0 Asymptomatic menopausal state; R10.12 Left upper quadrant pain; J43.9 Emphysema, unspecified
CPT/HCPCS: 36415; 80053; 85025; 99214

== ENCOUNTER 2022-08-23 09:39 | Outpatient (CLI) | payer MEDICARE, MEDICAID, SELFPAY ==
--- NOTE | 2022-08-23 10:00 | CT_ITS ---
WS: [email or web address] CT CHEST AND ABDOMEN WITH CONTRAST HISTORY: Right Chest Wall Pain Post Mastectomy; Abdominal pain, history of breast cancer. TECHNIQUE: Axial imaging is performed through the chest and abdomen with IV and oral contrast.. Sagit chris and coronal reformats. All CT scans at [facility] use at least one of these dose optimiza tion techniques: automated exposure control; mA and/or kV adjustment per patient size (includes targe carlos alberto exams where dose is matched to clinical indication); or iterative reconstruction. CONTRAST: Omnipaque 350; 100 mL IV. DLP: 710.76 mGy.cm COMPARISON: 05/01/[address]: Status post RIGHT mastectomy. There is mild skin thickening at the mastectomy site. Along the RIGHT c hest wall is increased soft tissue thickening measuring 6.0 x 1.0 cm. Suture clips are noted adjacent to the soft tissue. This may all be scar tissue from the prior surgery. A focal recurrence would be difficult to exclude on a single examination. No axillary lymph nodes are identified. Mild motion artifact. No pulmonary nodules are identified taking into consideration the motion and br eathing artifact. No pneumonia. Normal aorta. Normal pulmonary artery. Benign calcified subcarinal ly mph nodes. No enlarging mediastinal or hilar lymph nodes. Heart is normal size. Small hiatal hernia. Abdomen CT: Hepatic steatosis. No metastatic lesions within the liver. There are a few scattered hepatic and sple amrik granulomatous. Prior cholecystectomy. Normal portal vein. No adrenal mass. Mild pancreatic atroph y. No renal obstruction. Normal appearance of the stomach and proximal small bowel. 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 These varices extend along the LEFT psoas muscle an d anterior to the aorta. New since 2017. No destructive bone lesions. CT/CT chest abdomen w con* IMPRESSION: 1. Status post RIGHT mastectomy. 2. Linear soft tissue thickening along the RIGHT chest wall at the mastectomy site is probably postoperative scarring and fibrosis. Short-term CT follow-up v ersus ultrasound evaluation may be helpful. There are no adjacent lymph nodes. If there is a focal mass or focal area of concern focused ultrasound may be mos t helpful. 3. No metastatic nodules within the lungs or liver. 4. Prior cholecystectomy.
[2022-08-23] MEDS: iohexol 350 mg/mL 500 mL Btl (per mL) PO (10:23)
[2022-08-23] MEDS: iohexol 350 mg/mL 500 mL Btl (per mL) IV (10:23)
== END 2022-08-23 09:40 | disposition home or self-care (01) ==
LOC: RAD 09:42
PROVIDERS: PCP Clinical Nurse Specialist Adult Health; Visit Provider Nurse Practitioner
DX: C50.911 Malignant neoplasm of unspecified site of right female breast (principal); E03.9 Hypothyroidism, unspecified; M19.90 Unspecified osteoarthritis, unspecified site; Z79.899 Other long term (current) drug therapy; R16.0 Hepatomegaly, not elsewhere classified; N64.89 Other specified disorders of breast; Z90.11 Acquired absence of right breast and nipple; Z90.49 Acquired absence of other specified parts of digestive tract
CPT/HCPCS: 71260; 74160; Q9967

== ENCOUNTER 2022-09-06 11:22 | Outpatient (CLI) | payer MEDICARE, MEDICAID, SELFPAY ==
--- NOTE | 2022-09-06 10:45 | US_ITS ---
WS: [email or web address] ULTRASOUND BREAST RIGHT TECHNIQUE: Ultrasound right breast focused area of concern. CLINICAL INFORMATION: Right Sided Chest Wall Pain COMPARISON: Ultrasound October 11, [address] August 23, 2022 FINDINGS: Ultrasound area of concern RIGHT chest wall at the surgical site. Dense underlying parenchymal scarri ng. Small seroma at the surgical site measuring 2.7 x 0.4 x 0.6 cm. No other underlying abnormalities . No suspicious lesions. Normal RIGHT axilla. US/US breast RT limited* [id number] IMPRESSION: BI-RADS 2 benign Recommend annual diagnostic mammography
== END 2022-09-06 11:23 | disposition home or self-care (01) ==
LOC: RAD 11:26
PROVIDERS: PCP Clinical Nurse Specialist Adult Health; Visit Provider Nurse Practitioner
DX: N64.89 Other specified disorders of breast (principal); R07.89 Other chest pain; L76.34 Postprocedural seroma of skin and subcutaneous tissue following other procedure; Y83.8 Other surgical procedures as the cause of abnormal reaction of the patient, or of later complication, without mention of misadventure at the time of the procedure; Z85.3 Personal history of malignant neoplasm of breast
CPT/HCPCS: 76642

== ENCOUNTER 2022-09-11 13:31 | Outpatient (CLI) | payer MEDICARE, MEDICAID, SELFPAY ==
--- NOTE | 2022-09-11 13:45 | XR_ITS ---
WS: [email or web address] DEXA (DUAL ENERGY X-RAY ABSORPTIOMETRY) Bone mineral density was performed using a [employer] machine. HISTORY: ESTROGEN DEFICIENCY, ARIMIDEX THERAPY COMPARISON: None available. Lumbar spine BMD (L1-L4): 0.983 g/cm2 T score: -1.6 Z score: -0.4 Total hip BMD: Left: 0.949 g/cm2. T score: -0.5 Z score: 0.5 Right: 0.988 g/cm2. T score: -0.2 Z score: 0.8 10 year probability of a major osteoporotic fracture is 11%. XR/XR DEXA axial skeleton* [id number] IMPRESSION: OSTEOPENIA based upon the WHO classification for females.
== END 2022-09-11 13:32 | disposition home or self-care (01) ==
PROVIDERS: PCP Clinical Nurse Specialist Adult Health; Visit Provider Nurse Practitioner
DX: E28.39 Other primary ovarian failure (principal); Z79.811 Long term (current) use of aromatase inhibitors; M85.80 Other specified disorders of bone density and structure, unspecified site
CPT/HCPCS: 77080

== ENCOUNTER → 2022-09-18 11:02 | Outpatient (BNVA) | payer MEDICARE, MEDICAID, SELFPAY | PROVIDERS: PCP Clinical Nurse Specialist Adult Health; Referring Provider Surgery; Visit Provider Specialist | DX: B02.29 Other postherpetic nervous system involvement (principal); Z85.3 Personal history of malignant neoplasm of breast | CPT/HCPCS: 99204 ==

== ENCOUNTER 2022-09-19 14:41 | Oncology outpatient (recurring) (ONCR) | payer MEDICARE, MEDICAID, SELFPAY ==
[2022-09-19 15:16] LABS: Basophils % 0.7 %; Eosinophils # 0.1 10^3/uL (0.0-0.8); Eosinophils % 3.4 %; Hematocrit 31.5 % (37.0-47.0); Hemoglobin 10.2 g/dL (11.5-15.3); Lymphocytes # 1.6 10^3/uL (0.8-4.8); Lymphocytes % 54.9 %; Mean Corpuscular HGB Conc 32.4 g/dL (30.0-36.0); Mean Corpuscular Hemoglobin 30.9 pg (28.0-34.0); Mean Corpuscular Volume 95.5 fl (81-99); Mean Platelet Volume 9.7 fL (7.4-10.4); Monocytes # 0.2 10^3/uL (0.2-0.9); Monocytes % 5.4 %; Neutrophils # 1.05 10^3/uL (1.8-7.7); Neutrophils % 35.3 %; Nucleated Red Blood Cells % 0 %; Platelet Count 110 10^3/cmm (130-400); Red Cell Distribution Width 13.5 % (12.1-15.1)
[2022-09-19 15:32] LABS: Alanine Aminotransferase 27 U/L (0-33); Albumin Level 3.3 g/dL (3.5-5.2); Alkaline Phosphatase 166 U/L (35-105); Anion Gap 13.2 (5-19); Aspartate Amino Transferase 48 U/L (0-32); Blood Urea Nitrogen 10 mg/dL (8-23); Calcium 8.4 mg/dL (8.5-10.5); Carbon Dioxide 25 mmol/L (22-29); Chloride 103 mmol/L (98-107); Globulin 3.3 g/dL (1.3-4.6); Glomerular Filtration Rate 124.2 mL/min (90-130); Glucose 119 mg/dL (65-115); Osmolality Calculated 284 mOsm/kg (285-295); Potassium 4.2 mmol/L (3.5-5.1); Sodium 137 mmol/L (136-145); Total Bilirubin 0.3 mg/dL (0.15-1.2); Total Protein 6.6 g/dL (6.6-8.7)
== END 2022-09-26 23:59 | disposition home or self-care (01) ==
PROVIDERS: Nurse Practitioner; PCP Clinical Nurse Specialist Adult Health; Visit Provider Internal Medicine Hematology & Oncology
DX: C50.811 Malignant neoplasm of overlapping sites of right female breast (principal); Z17.0 Estrogen receptor positive status [ER+]; Z90.11 Acquired absence of right breast and nipple; R53.0 Neoplastic (malignant) related fatigue; M85.89 Other specified disorders of bone density and structure, multiple sites; D70.1 Agranulocytosis secondary to cancer chemotherapy; T45.1X5A Adverse effect of antineoplastic and immunosuppressive drugs, initial encounter; D61.810 Antineoplastic chemotherapy induced pancytopenia; M25.562 Pain in left knee; Z79.811 Long term (current) use of aromatase inhibitors; Z79.899 Other long term (current) drug therapy
CPT/HCPCS: 36415; 80053; 85025; 99214

== ENCOUNTER → 2022-10-09 14:36 | Outpatient (BNVA) | payer MEDICARE, SELFPAY | PROVIDERS: PCP Family Medicine; Visit Provider Internal Medicine Cardiovascular Disease | DX: R07.9 Chest pain, unspecified (principal); R06.02 Shortness of breath; I73.9 Peripheral vascular disease, unspecified; I10 Essential (primary) hypertension; E78.2 Mixed hyperlipidemia | CPT/HCPCS: 99214 ==

== ENCOUNTER 2022-10-17 11:48 | Oncology outpatient (recurring) (ONCR) | payer MEDICARE, SELFPAY ==
[2022-10-17 12:10] VITALS: BP 161/74; PULSE 78; RESP 18; TEMP 36.5; O2SAT 96
[2022-10-17 12:41] LABS: Basophils % 1.1 %; Eosinophils # 0.1 10^3/uL (0.0-0.8); Eosinophils % 2.7 %; Hematocrit 33.8 % (37.0-47.0); Hemoglobin 10.7 g/dL (11.5-15.3); Lymphocytes # 1.7 10^3/uL (0.8-4.8); Lymphocytes % 45.4 %; Mean Corpuscular HGB Conc 31.7 g/dL (30.0-36.0); Mean Corpuscular Hemoglobin 31.1 pg (28.0-34.0); Mean Corpuscular Volume 98.3 fl (81-99); Mean Platelet Volume 9.7 fL (7.4-10.4); Monocytes # 0.2 10^3/uL (0.2-0.9); Monocytes % 6.1 %; Neutrophils # 1.69 10^3/uL (1.8-7.7); Neutrophils % 44.7 %; Nucleated Red Blood Cells % 0 %; Platelet Count 120 10^3/cmm (130-400); Red Blood Count 3.44 10^6/uL (4.1-5.3); Red Cell Distribution Width 13.5 % (12.1-15.1); White Blood Count 3.8 10^3/uL (4.0-10.0)
[2022-10-17 12:48] LABS: Alanine Aminotransferase 31 U/L (0-33); Albumin Level 3.7 g/dL (3.5-5.2); Alkaline Phosphatase 158 U/L (35-105); Anion Gap 13.3 (5-19); Aspartate Amino Transferase 53 U/L (0-32); Blood Urea Nitrogen 11 mg/dL (8-23); Carbon Dioxide 25 mmol/L (22-29); Chloride 103 mmol/L (98-107); Globulin 3.9 g/dL (1.3-4.6); Glomerular Filtration Rate 72.2 mL/min (90-130); Glucose 114 mg/dL (65-115); Osmolality Calculated 284 mOsm/kg (285-295); Potassium 4.3 mmol/L (3.5-5.1); Sodium 137 mmol/L (136-145); Total Bilirubin 0.5 mg/dL (0.15-1.2); Total Protein 7.6 g/dL (6.6-8.7)
[2022-10-17 13:04] LABS: 25 Hydroxy Vitamin D 10 ng/mL (30-100)
== END 2022-10-26 23:59 | disposition home or self-care (01) ==
PROVIDERS: Nurse Practitioner; PCP Family Medicine; Visit Provider Internal Medicine Hematology & Oncology
DX: C50.811 Malignant neoplasm of overlapping sites of right female breast (principal); Z17.0 Estrogen receptor positive status [ER+]; Z90.11 Acquired absence of right breast and nipple; K29.70 Gastritis, unspecified, without bleeding; D12.4 Benign neoplasm of descending colon; D50.9 Iron deficiency anemia, unspecified; R74.01 Elevation of levels of liver transaminase levels; K76.0 Fatty (change of) liver, not elsewhere classified; R53.1 Weakness; R53.0 Neoplastic (malignant) related fatigue; G47.30 Sleep apnea, unspecified; R73.9 Hyperglycemia, unspecified; Z79.818 Long term (current) use of other agents affecting estrogen receptors and estrogen levels; Z79.899 Other long term (current) drug therapy
CPT/HCPCS: 36415; 80053; 82306; 85025; 99214

== ENCOUNTER 2022-12-18 09:16 | Outpatient (CLI) | payer MEDICARE, SELFPAY ==
--- NOTE | 2022-12-18 11:00 | MR_ITS ---
WS: [email or web address] MRI LEFT KNEE HISTORY: Left knee pain and swelling, limited mobility COMPARISON: 04/05/2017 Anterior cruciate ligament: Mild thickening and increased signal within the ACL. Majority of the fibe rs still appear to be intact. There is mild mucoid degeneration. Posterior cruciate ligament: Intact. Medial collateral ligament: MCL is being displaced from the joint line by osteophytes and extruded me niscus. Posterior lateral corner structures: Intact. Medial menisci: Significant change in appearance of the meniscal horns. There is complete obliteratio n of the posterior horn. No normal-appearing remaining meniscal signal. Anterior horn is extruded. Lateral meniscus: Blunting of the free edge posterior horn. There is intrasubstance degeneration and a small but stable parameniscal cyst. Anterior horn is small caliber. Extensor mechanism: Distal quadriceps tendon and patellar tendons are intact. Fluid and soft tissue: Moderate suprapatellar joint effusion. Tiny Fortune's cyst. Diffuse soft tissue edema surrounding the knee. Osseous and articular structures: Patellofemoral compartment: Moderate narrowing patellofemoral joint space. Moderate diffuse chondroma lacia. No marrow edema. Medial compartment: Severe narrowing of the medial compartment. Joint space narrowing with osteophyte s and loss of cartilage significantly progressed since the prior study. Complete loss of cartilage wi th marrow edema in the femoral condyle and tibial plateau. Lateral compartment: Moderate narrowing with marginal osteophytes. Moderate chondromalacia. Progressi on of degenerative changes since the prior study. IMPRESSION: 1. Significant progression of tricompartmental internal derangement since 2017. 2. Severe medial and moderate lateral compartment osteoarthritis. Osteophyte formation, joint space n arrowing and loss of cartilage. 3. Complete obliteration posterior horn medial meniscus is a new finding. The anterior horn of the me dial meniscus is extruded. 4. Posterior horn lateral meniscus free edge is blunted with intrasubstance degeneration and para men iscal cyst. 5. Moderate suprapatellar joint effusion with a small Fortune's cyst. 6. Moderate patellofemoral joint space arthritis with diffuse chondromalacia. 7. No acute fracture. New reactive marrow edema in the medial femoral condyle and tibial plateau.
== END 2022-12-18 09:17 | disposition home or self-care (01) ==
PROVIDERS: PCP Family Medicine; Visit Provider Nurse Practitioner
DX: M23.8X2 Other internal derangements of left knee (principal); M17.12 Unilateral primary osteoarthritis, left knee; M71.22 Synovial cyst of popliteal space [Baker], left knee; M22.42 Chondromalacia patellae, left knee
CPT/HCPCS: 73721

== ENCOUNTER 2022-12-20 13:16 | Oncology outpatient (recurring) (ONCR) | payer MEDICARE, SELFPAY ==
[2022-12-20 13:24] VITALS: BMI 32.1
[2022-12-20 13:25] VITALS: BP 131/63; PULSE 75; RESP 18; TEMP 36.9; O2SAT 94
[2022-12-20 13:48] LABS: Basophils % 0.6 %; Eosinophils # 0.1 10^3/uL (0.0-0.8); Eosinophils % 1.4 %; Hematocrit 33.7 % (36-47); Lymphocytes # 1.4 10^3/uL (0.8-4.8); Lymphocytes % 38.6 %; Mean Corpuscular HGB Conc 31.8 g/dL (30-55); Mean Corpuscular Hemoglobin 31.1 pg (27-33); Mean Platelet Volume 10.4 fL (7.4-10.4); Monocytes # 0.2 10^3/uL (0.2-0.9); Monocytes % 4.5 %; Neutrophils # 1.92 10^3/uL (1.8-7.7); Neutrophils % 54.6 %; Nucleated Red Blood Cells % 0 %; Platelet Count 113 10^3/cmm (157-399); Red Blood Count 3.44 10^6/uL (3.85-5.65); Red Cell Distribution Width 13.2 % (12.1-15.1); White Blood Count 3.52 10^3/uL (3.29-11.43)
[2022-12-20 13:58] LABS: Alanine Aminotransferase 23 U/L (0-33); Albumin Level 3.5 g/dL (3.5-5.2); Alkaline Phosphatase 127 U/L (35-105); Aspartate Amino Transferase 40 U/L (0-32); Blood Urea Nitrogen 15 mg/dL (8-23); Carbon Dioxide 24 mmol/L (22-29); Chloride 100 mmol/L (98-107); Globulin 3.8 g/dL (1.3-4.6); Glomerular Filtration Rate 100.3 mL/min (90-130); Glucose 185 mg/dL (65-115); Osmolality Calculated 284 mOsm/kg (285-295); Sodium 134 mmol/L (136-145); Total Bilirubin 0.8 mg/dL (0.15-1.2); Total Protein 7.3 g/dL (6.6-8.7)
[2022-12-20 13:59] LABS: Anion Gap 14.4 (5-19); Potassium 4.4 mmol/L (3.5-5.1)
[2022-12-20 14:14] LABS: 25 Hydroxy Vitamin D 61 ng/mL (30-100)
[2022-12-20 16:20] LABS: Ferritin 61 ng/mL (15-150); Iron 113 ug/dL (37-145); Percent Saturation 38.4 % (20-50); Thyroid Stimulating Hormone 0.54 uIU/mL (0.27-4.20); Total Iron Binding Capacity 294 mcg/dl; Unsaturated Iron Binding 181 ug/dL (112-347); Vitamin B12 572 pg/mL (232-1245)
== END 2022-12-27 23:59 | disposition home or self-care (01) ==
PROVIDERS: Internal Medicine Medical Oncology; Nurse Practitioner Family; PCP Family Medicine; Visit Provider Internal Medicine Hematology & Oncology
DX: C50.811 Malignant neoplasm of overlapping sites of right female breast (principal); M25.569 Pain in unspecified knee; D75.89 Other specified diseases of blood and blood-forming organs; Z90.10 Acquired absence of unspecified breast and nipple; C77.3 Secondary and unspecified malignant neoplasm of axilla and upper limb lymph nodes
CPT/HCPCS: 36415; 80053; 82306; 82607; 82728; 83540; 83550; 84443; 85025; 99214

== ENCOUNTER 2023-01-21 09:00 | Outpatient (RCR) | payer MEDICARE, SELFPAY | END 2023-01-26 23:59 | disposition home or self-care (01) | LOC: SPT 09:00 | PROVIDERS: Visit Provider Internal Medicine Medical Oncology | DX: I89.0 Lymphedema, not elsewhere classified (principal); C50.911 Malignant neoplasm of unspecified site of right female breast | CPT/HCPCS: 97140; 97161 ==

== ENCOUNTER 2023-01-27 06:00 | Outpatient (RCR) | payer MEDICARE, SELFPAY | END 2023-02-26 23:59 | disposition home or self-care (01) | LOC: SPT 06:00 | PROVIDERS: Visit Provider Internal Medicine Medical Oncology | DX: I89.0 Lymphedema, not elsewhere classified (principal) | CPT/HCPCS: 97110; 97140 ==

== ENCOUNTER → 2023-02-11 15:03 | Outpatient (BNVA) | payer MEDICARE, SELFPAY | PROVIDERS: PCP Family Medicine; Visit Provider Student in an Organized Health Care Education/Training Program | DX: M17.12 Unilateral primary osteoarthritis, left knee | CPT/HCPCS: 20610; 99214; J3301 ==

== ENCOUNTER 2023-02-12 06:00 | Outpatient (CLI) | payer MEDICARE, SELFPAY | END 2023-02-12 23:59 | disposition home or self-care (01) | LOC: SPT 04-15 11:44 | PROVIDERS: PCP Family Medicine; Visit Provider Student in an Organized Health Care Education/Training Program | DX: Z46.89 Encounter for fitting and adjustment of other specified devices (principal); M17.12 Unilateral primary osteoarthritis, left knee | CPT/HCPCS: L1851 ==

== ENCOUNTER 2023-02-27 06:00 | Outpatient (RCR) | payer MEDICARE, SELFPAY | END 2023-03-28 23:59 | disposition home or self-care (01) | LOC: SPT 06:00 | PROVIDERS: PCP Family Medicine; Visit Provider Internal Medicine Medical Oncology | DX: I89.0 Lymphedema, not elsewhere classified (principal); C50.911 Malignant neoplasm of unspecified site of right female breast | CPT/HCPCS: 97140 ==

== ENCOUNTER 2023-03-05 11:17 | Outpatient (CLI) | payer MEDICARE, SELFPAY ==
--- NOTE | 2023-03-05 11:45 | US_ITS ---
WS: [email or web address] ULTRASOUND RIGHT BREAST HISTORY: right mastectomy scar pain COMPARISON: 09/06/2022 TECHNIQUE: 2-D and Doppler. Ultrasound is directed along the RIGHT mastectomy scar site and in the area of pain. No abnormality i s identified. No fluid collection or mass. No significant distortion. IMPRESSION: US/US breast RT limited* [id number] BI-RADS: 2-Benign FOLLOW-UP: See Report Negative ultrasound along the RIGHT breast scar site. No additional imaging fol low-up necessary.
== END 2023-03-05 11:18 | disposition home or self-care (01) ==
LOC: RAD 11:18
PROVIDERS: PCP Family Medicine; Visit Provider Internal Medicine Medical Oncology
DX: R07.89 Other chest pain (principal); Z90.11 Acquired absence of right breast and nipple
CPT/HCPCS: 76642

== ENCOUNTER 2023-04-12 10:52 | Outpatient (CLI) | payer MEDICARE, SELFPAY ==
--- NOTE | 2023-04-12 11:00 | MM_ITS ---
WS: [email or web address] VIEWS: MLO, CC, and ML views both breasts. 3D digital tomosynthesis is also included in this exam. C omparisons: 04/18/2006 , 07/22/2014, 03/13/2016, 09/18/2021, 04/20/2022. Findings: There was no sign of mass, architectural distortion or suspicious calcification in either breast. Sta ble postoperative changes of the RIGHT breast. Stable nodules in the LEFT breast. There are scattered areas of fibroglandular density. Impression: MM/[place] [id number] BI-RADS: 2-Benign finding. FOLLOW-UP: 1 Year Follow-up This mammogram was also analyzed by the Computer Aided Detection System R2 Imag e Blasting Entry Specialist.
--- NOTE | 2023-04-12 11:56 | US_ITS ---
WS: [email or web address] Exam: US breast LT limited* [id number] Date/Time of Exam: 04/12/2023 12:45 PM Reason For Exam: 6MFU Subareolar area of the LEFT breast is evaluated with ultrasound. There is no sign of suspicious solid nodule or mass. No significant interval change since 06/05/2022. IMPRESSION: 1. No suspicious ultrasound findings identified. BI-RADS Category 2. Recommendations: Continued yearly screening mammography.
== END 2023-04-12 10:53 | disposition home or self-care (01) ==
PROVIDERS: PCP Family Medicine; Visit Provider Internal Medicine Medical Oncology
DX: R92.8 Other abnormal and inconclusive findings on diagnostic imaging of breast (principal)
CPT/HCPCS: 76642; 77062; G0279

== ENCOUNTER 2023-05-29 10:30 | Oncology outpatient (recurring) (ONCR) | payer MEDICARE, SELFPAY ==
[2023-05-27 11:20] LABS: Reticulocyte % 2.1 % (0.5-2.0)
[2023-05-27 11:34] LABS: Basophils % 0.7 %; Eosinophils # 0.1 10^3/uL (0.0-0.8); Erythrocyte Sedimentation Rate 25 mm/hr (0-15); Lymphocytes # 1.3 10^3/uL (0.8-4.8); Lymphocytes % 31.5 %; Mean Corpuscular HGB Conc 32.3 g/dL (30-55); Mean Corpuscular Hemoglobin 31.5 pg (27-33); Mean Corpuscular Volume 97.4 fl (85-98); Mean Platelet Volume 10.9 fL (7.4-10.4); Monocytes # 0.3 10^3/uL (0.2-0.9); Monocytes % 6.3 %; Neutrophils # 2.43 10^3/uL (1.8-7.7); Neutrophils % 59.3 %; Nucleated Red Blood Cells % 0 %; Platelet Count 88 10^3/cmm (157-399); Red Blood Count 3.08 10^6/uL (3.85-5.65); Red Cell Distribution Width 13.2 % (12.1-15.1)
[2023-05-27 11:58] LABS: Alanine Aminotransferase 44 U/L (0-33); Albumin Level 3.5 g/dL (3.5-5.2); Alkaline Phosphatase 146 U/L (35-105); Blood Urea Nitrogen 16 mg/dL (8-23); C Reactive Protein 3.7 mg/L (0.0-4.9); CA 15-3 24.2 U/mL (0-25); Carbon Dioxide 27 mmol/L (22-29); Chloride 103 mmol/L (98-107); Ferritin 28 ng/mL (15-150); Globulin 3.5 g/dL (1.3-4.6); Glomerular Filtration Rate 100.3 mL/min (90-130); Glucose 137 mg/dL (65-115); Iron 53 ug/dL (37-145); Osmolality Calculated 289 mOsm/kg (285-295); Sodium 138 mmol/L (136-145); Thyroid Stimulating Hormone 0.49 uIU/mL (0.27-4.20); Total Bilirubin 0.5 mg/dL (0.15-1.2); Vitamin B12 1281 pg/mL (232-1245)
[2023-05-27 12:04] LABS: Anion Gap 12.6 (5-19); Percent Saturation 16.5 % (20-50); Potassium 4.6 mmol/L (3.5-5.1); Total Iron Binding Capacity 320 mcg/dl; Unsaturated Iron Binding 267 ug/dL (112-347)
[2023-05-27 12:05] LABS: Aspartate Amino Transferase 61 U/L (0-32); Lactate Dehydrogenase 238 U/L (135-214)
[2023-05-27 12:49] LABS: Free T4 Free Thyroxine 1.43 ng/dL (0.82-1.77)
[2023-05-27 15:05] LABS: Folate Level 16.5 ng/mL (4.8-37.3)
[2023-05-28 11:14] LABS: PROTEIN, TOTAL 6.7 g/dL (6.1-8.1)
[2023-05-28 13:34] LABS: KAPPA LIGHT CHAIN, FREE, SERUM 72.9 mg/L (3.3-19.4); KAPPA/LAMBDA LIGHT CHAINS FREE 1.96 (0.26-1.65); LAMBDA LIGHT CHAIN, FREE, SERU 37.1 mg/L (5.7-26.3)
[2023-05-28 16:50] LABS: Anti-Nuclear Antibody Screen NEGATIVE (NEGATIVE)
[2023-05-29 09:29] LABS: ALBUMIN 3.4 g/dL (3.8-4.8); ALPHA 1 GLOBULIN 0.2 g/dL (0.2-0.3); ALPHA 2 GLOBULIN 0.5 g/dL (0.5-0.9); BETA 1 GLOBULIN 0.5 g/dL (0.4-0.6); BETA 2 GLOBULIN 0.4 g/dL (0.2-0.5); GAMMA GLOBULIN 1.6 g/dL (0.8-1.7)
[2023-05-29 16:00] LABS: Copper Level 106 mcg/dL (70-175)
[2023-05-30 21:20] LABS: Lupus Hexagonal Phas Confirm NEGATIVE (NEGATIVE); PTT-LA-Screen 56 sec (< OR = 40)
== END 2023-05-29 23:59 | disposition home or self-care (01) ==
PROVIDERS: Internal Medicine Medical Oncology; Nurse Practitioner Family; PCP Family Medicine; Visit Provider Internal Medicine Hematology & Oncology
DX: Z53.9 Procedure and treatment not carried out, unspecified reason; D69.6 Thrombocytopenia, unspecified; C50.911 Malignant neoplasm of unspecified site of right female breast
CPT/HCPCS: 36415; 80053; 82525; 82607; 82728; 82746; 83010; 83540; 83550; 83615; 83883; 84155; 84165; 84439; 84443; 85025; 85045; 85613; 85651; 85730; 86038; 86140; 86300; 86334; 99215

== ENCOUNTER 2023-05-30 10:00 | Outpatient (CLI) | payer MEDICARE, SELFPAY | END 2023-05-30 10:01 | LOC: RAD 09-25 10:39 | PROVIDERS: PCP Family Medicine; Visit Provider Student in an Organized Health Care Education/Training Program | DX: M17.0 Bilateral primary osteoarthritis of knee (principal) | CPT/HCPCS: 73560; 73565; 99213 ==

== ENCOUNTER → 2023-06-18 14:09 | Outpatient (BNVA) | payer MEDICARE, MEDICAID, SELFPAY | PROVIDERS: PCP Family Medicine; Visit Provider Student in an Organized Health Care Education/Training Program | DX: M17.12 Unilateral primary osteoarthritis, left knee | CPT/HCPCS: 99214 ==

== ENCOUNTER 2023-06-24 08:31 | Outpatient (CLI) | payer MEDICARE, SELFPAY ==
--- NOTE | 2023-06-24 08:45 | NMR_ITS ---
PROCEDURE INFORMATION: Exam: NM Bone and/or Joint, Limited Exam date and time: 06/24/2023 8:45 AM Age: 67 years old Clinical indication: Bone pain; Other: Generalized; Prior surgery; Surgery date: 6+ months; Surgery type: Right mastectomy, left foot, left knee; Patient HX: Right breast cancer, grade 3 infiltrating ductal carcinoma er/pr positive, her2/gabby low; Additional info: Breast cancer, generalized bone pain TECHNIQUE: Imaging protocol: Nuclear bone scan was obtained. Views: Posterior. Radiopharmaceutical: 25.1 mCi Tc99m HDP @ 0830. Time of imaging post radiopharmaceutical administration: 2 hours. COMPARISON: No relevant prior studies available. FINDINGS: Bones/joints: The bone scan shows normal distribution of radiopharmaceutical throughout the visualized osseous structures. Increased uptake in each knee, left greater than right indicates osteoarthritis. Soft tissues: Unremarkable. Kidneys: Two kidneys are present and there is no hydronephrosis. NM/NM bone scan whole body* [id number] IMPRESSION: No suspicious findings. Degenerative changes of the knees, particularly on the left.
== END 2023-06-24 08:32 | disposition home or self-care (01) ==
PROVIDERS: PCP Family Medicine; Visit Provider Internal Medicine Medical Oncology
DX: Z13.820 Encounter for screening for osteoporosis (principal); M89.8X9 Other specified disorders of bone, unspecified site; M17.0 Bilateral primary osteoarthritis of knee; C50.111 Malignant neoplasm of central portion of right female breast
CPT/HCPCS: 78306; A9561

== ENCOUNTER 2023-06-28 13:17 | Outpatient (CLI) | payer MEDICARE, SELFPAY ==
[2023-06-28] MEDS: iohexol 350 mg/mL 500 mL Btl (per mL) PO (13:31)
--- NOTE | 2023-06-28 14:30 | CTR_ITS ---
PROCEDURE INFORMATION: Exam: CT Chest With Contrast; Diagnostic Exam date and time: 06/28/2023 2:42 PM Age: 67 years old Clinical indication: Sternal or substernal pain; Prior surgery; Surgery date: 6+ months; Surgery type: RT mastectomy; Additional info: Breast cancer, bone pain TECHNIQUE: Imaging protocol: Diagnostic computed tomography of the chest with contrast. Radiation optimization: All CT scans at this facility use at least one of these dose optimization techniques: automated exposure control; mA and/or kV adjustment per patient size (includes targeted exams where dose is matched to clinical indication); or iterative reconstruction. Contrast material: OMNI 350; Contrast volume: 95 ml; Contrast route: INTRAVENOUS (IV); COMPARISON: CT chest abd w con*[id number] 08/23/2022 10:46 AM RADIATION DOSE METRICS: Total DLP (mGy-cm): 973.28 FINDINGS: Thyroid: No significant thyroid pathology. Lungs: No findings suspicious for pulmonary metastasis. Pleural spaces: No pleural effusion. Heart: Unremarkable. No cardiomegaly. No pericardial effusion. Coronary arteries: No coronary artery calcification evident. Lymph nodes: No enlarged nodes by criteria. Vasculature: No evidence of thoracic aortic aneurysm. Diaphragm: Small hiatal hernia. Bones/joints: Mild degenerative change present in the spine. Soft tissues: Features of prior right mastectomy again noted. Interval decrease in skin thickening and subcutaneous fat infiltration at the mastectomy site. Interval decrease in plaque-like subcutaneous density in this region consistent with decreasing postsurgical change. No findings suspicious for recurrent or residual mass in this location. Other findings: Evaluation limited by respiratory degradation. PROCEDURE INFORMATION: Exam: CT Abdomen And Pelvis With Contrast Exam date and time: 06/28/2023 2:42 PM Age: 67 years old Clinical indication: Sternal or substernal pain; Prior surgery; Surgery date: 6+ months; Surgery type: RT mastectomy; Additional info: Breast cancer, bone pain TECHNIQUE: Imaging protocol: Computed tomography of the abdomen and pelvis with contrast. Radiation optimization: All CT scans at this facility use at least one of these dose optimization techniques: automated exposure control; mA and/or kV adjustment per patient size (includes targeted exams where dose is matched to clinical indication); or iterative reconstruction. Contrast material: OMNI 350; Contrast volume: 95 ml; Contrast route: INTRAVENOUS (IV); COMPARISON: CT chest abd w con*[id number] 08/23/2022 10:46 AM RADIATION DOSE METRICS: Total DLP (mGy-cm): 973.28 FINDINGS: Lungs: Visualized lung bases are free of significant pathology. Liver: Hepatic steatosis. Gallbladder and bile ducts: Prior cholecystectomy. No biliary dilatation. Pancreas: No significant pancreatic pathology. Spleen: Spleen is mildly enlarged at 14.0 cm, without significant change. Varices in the splenic hilum and retroperitoneum again noted. Adrenal glands: Mild adrenal thickening without discrete nodule, stable compared with the prior study. Kidneys and ureters: No significant renal pathology. Stomach and bowel: Colonic diverticulosis without evidence of focal inflammatory change. Prior sigmoid surgery. Appendix: Appendix within normal limits. Intraperitoneal space: No ascites. Vasculature: No abdominal aortic aneurysm. Lymph nodes: No enlarged nodes by criteria. Urinary bladder: Unremarkable urinary bladder. Reproductive: Prior hysterectomy. Bones/joints: No bony metastasis evident. Mild degenerative change present in the spine. Soft tissues: Large fat containing midline ventral hernia with the hernia sac projecting to the right. Small fat containing left inguinal hernia. Small fat containing umbilical hernia. CT/CT chest abdpel w/*[id number] IMPRESSION: Interval decrease in postoperative changes of the right chest wall at the mastectomy site. No findings suspicious for recurrent neoplasm. IMPRESSION: 1. No evidence of abdominopelvic metastasis. 2. Mild splenomegaly with varices again noted. 3. Minor findings including ventral hernias noted above.
[2023-06-28] MEDS: iohexol 350 mg/mL 500 mL Btl (per mL) IV (14:46)
== END 2023-06-28 13:18 | disposition home or self-care (01) ==
LOC: RAD 13:18
PROVIDERS: PCP Family Medicine; Visit Provider Internal Medicine Medical Oncology
DX: C50.111 Malignant neoplasm of central portion of right female breast (principal); M89.8X9 Other specified disorders of bone, unspecified site; R16.1 Splenomegaly, not elsewhere classified; I86.8 Varicose veins of other specified sites
CPT/HCPCS: 71260; 74177; Q9967

== ENCOUNTER → 2023-07-17 10:00 | Outpatient (BNVA) | payer MEDICARE, SELFPAY | PROVIDERS: PCP Family Medicine; Visit Provider Family Medicine | DX: Z01.818 Encounter for other preprocedural examination (principal); Z79.899 Other long term (current) drug therapy | CPT/HCPCS: 80053; 81003; 83036; 85025 ==

== ENCOUNTER → 2023-07-18 | Outpatient (BNVA) | payer MEDICARE, SELFPAY | PROVIDERS: PCP Family Medicine; Visit Provider Family Medicine | DX: Z01.818 Encounter for other preprocedural examination (principal); Z79.899 Other long term (current) drug therapy | CPT/HCPCS: 87086 ==

== ENCOUNTER 2023-07-24 09:00 | Oncology outpatient (recurring) (ONCR) | payer MEDICARE, SELFPAY ==
[2023-07-09 15:44] LABS: Basophils % 0.9 %; Eosinophils # 0.1 10^3/uL (0.0-0.8); Eosinophils % 1.5 %; Hematocrit 33.2 % (36-47); Lymphocytes # 1.4 10^3/uL (0.8-4.8); Lymphocytes % 30.8 %; Mean Corpuscular HGB Conc 33.1 g/dL (30-55); Mean Corpuscular Hemoglobin 31.2 pg (27-33); Mean Corpuscular Volume 94.1 fl (85-98); Monocytes # 0.3 10^3/uL (0.2-0.9); Monocytes % 6.5 %; Neutrophils # 2.79 10^3/uL (1.8-7.7); Neutrophils % 60.1 %; Nucleated Red Blood Cells % 0 %; Platelet Count 124 10^3/cmm (157-399); Red Blood Count 3.53 10^6/uL (3.85-5.65); Red Cell Distribution Width 14.1 % (12.1-15.1); White Blood Count 4.64 10^3/uL (3.29-11.43)
[2023-07-09 15:57] LABS: Estmated Average Glucose 123; Hemoglobin A1C 5.9 % (4.0-6.0)
[2023-07-09 16:02] LABS: Alanine Aminotransferase 31 U/L (0-33); Albumin Level 3.8 g/dL (3.5-5.2); Alkaline Phosphatase 138 U/L (35-105); Anion Gap 16.4 (5-19); Aspartate Amino Transferase 50 U/L (0-32); Blood Urea Nitrogen 17 mg/dL (8-23); Calcium 9.4 mg/dL (8.5-10.5); Carbon Dioxide 23 mmol/L (22-29); Chloride 98 mmol/L (98-107); Creatinine Clr Calc Pharmacy 80.8253; Globulin 3.8 g/dL (1.3-4.6); Glomerular Filtration Rate 100.3 mL/min (90-130); Glucose 89 mg/dL (65-115); Osmolality Calculated 277 mOsm/kg (285-295); Potassium 4.4 mmol/L (3.5-5.1); Sodium 133 mmol/L (136-145); Total Bilirubin 0.8 mg/dL (0.15-1.2); Total Protein 7.6 g/dL (6.6-8.7)
[2023-07-09 16:17] LABS: Ferritin 39 ng/mL (15-150); Iron 114 ug/dL (37-145); Percent Saturation 33.2 % (20-50); Total Iron Binding Capacity 343 mcg/dl; Unsaturated Iron Binding 229 ug/dL (112-347)
[2023-07-09 16:18] LABS: Erythrocyte Sedimentation Rate 34 mm/hr (0-15)
== END 2023-07-28 23:59 | disposition home or self-care (01) ==
PROVIDERS: PCP Family Medicine; Visit Provider Internal Medicine Medical Oncology
DX: C50.811 Malignant neoplasm of overlapping sites of right female breast (principal); Z53.9 Procedure and treatment not carried out, unspecified reason; Z17.0 Estrogen receptor positive status [ER+]; Z90.11 Acquired absence of right breast and nipple; Z79.811 Long term (current) use of aromatase inhibitors; K92.1 Melena; D64.9 Anemia, unspecified
CPT/HCPCS: 36415; 73560; 73565; 80053; 82728; 83036; 83540; 83550; 85025; 85651; 86140; 99213; 99214

== ENCOUNTER 2023-07-26 09:20 | Outpatient (CLI) | payer MEDICARE, SELFPAY ==
--- NOTE | 2023-07-26 10:00 | CT_ITS ---
WS: [email or web address] CT LEFT knee, noncontrast HISTORY: M17.12 - Unilateral primary osteoarthritis, left knee TECHNIQUE: Protocol for ALICIA total knee replacement has been obtained. This includes axial imaging th rough the LEFT hip, LEFT knee and LEFT ankle. DLP: 1094.03 mGy.cm COMPARISON: None available. Pelvis: Minimal degenerative changes at the SI joints. No osseous destruction. Normal appearance of t he soft tissues. Very minimal plaque in the visualized femoral artery. LEFT knee: Mild to moderate osteoarthritis. Greatest narrowing in the medial compartment. Small supra patellar joint effusion. LEFT ankle: Negative. IMPRESSION: CT imaging provided for ALICIA robotic total knee replacement.
== END 2023-07-26 09:21 | disposition home or self-care (01) ==
LOC: RAD 09:21
PROVIDERS: PCP Family Medicine; Visit Provider Student in an Organized Health Care Education/Training Program
DX: M17.12 Unilateral primary osteoarthritis, left knee (principal)
CPT/HCPCS: 73700

== ENCOUNTER → 2023-07-30 14:01 | Outpatient (BNVA) | payer MEDICARE, SELFPAY | PROVIDERS: PCP Family Medicine; Visit Provider Family Medicine | DX: Z01.818 Encounter for other preprocedural examination (principal) | CPT/HCPCS: 93005 ==

== ENCOUNTER → 2023-07-31 15:18 | Outpatient (BNVA) | payer MEDICARE, SELFPAY | PROVIDERS: PCP Family Medicine; Referring Provider Internal Medicine Medical Oncology; Visit Provider Dermatology | DX: L30.4 Erythema intertrigo (principal) | CPT/HCPCS: 99204 ==

== ENCOUNTER 2023-08-05 13:31 | Observation (INO) | payer MEDICARE, SELFPAY ==
[2023-08-05] VITALS (25 sets, daily range): BP systolic 102–164; BP diastolic 60–81; PULSE 70–89; RESP 12–25; TEMP 36.6–37.2; O2SAT 90–96; BMI 32.7
--- NOTE | 2023-08-05 10:44 | ANES.PREANE2 ---
Pre-Anesthetic Assessment Height/Weight: Height 1.5 m Preop Diagnosis: Left Knee DJD Operation Date: 08/05/23 12:10 Proposed Procedures p Neo Robot Total Knee Arthroplasty(Left) - Hasmukh Johnson DO Familial anesthetic complications: none Was Beta Christopher taken within 24 hours: N/A Was Clonidine taken within 24 hours: N/A Last intake: > 8h rs Social No alcohol and No tobacco Exam alert, oriented x 3, clear to auscultation bilaterally and regular rate & rhythm Airway Mallampati: Class II Dentition: full Pulmonary Sleep Apnea CV/HEM Arrythmia (PVCs) and Hypertension SESTAMIBI STRESS TEST 05/25/22 CONCLUSION: 1. No significant EKG changes with the LexiScan infusion. 2. No LexiScan induced chest pain or cardiac arrhythmia. 3. Normal blood pressure and heart rate response. MYOCARDIAL PERFUSION SCAN 05/25/22 IMPRESSIONS 1. Small sized perfusion abnormality of mild severity of mid to apical lateral wall. This may represent small area of ischemia in circumflex artery territory. 2. Overall left ventricular systolic function is normal without regional wall motion abnormalities, LVEF=82%. 3. EKG portion of the study will be reported separately. GI Gastroesophageal Reflux Disease Metabolic Diabetes Mellitus, Hyperlipidemia and Thyroid Disease Anesthetic Plan ASA status: 3 Anesthesia: Regional (specify below) Risk of > 500 ml blood loss (7ml/kg in children): No Medications/Allergies Home Medications Medication Instructions Recorded Confirmed Last Taken Type nitroglycerin 0.4 mg sublingual 0.4 mg sublingual Q5M PRN chest 04/11/21 08/02/23 Unknown Rx tablet (Nitrostat) pain #25 tabs pantoprazole 40 mg tablet,delayed 40 mg PO QAM for stomach 90 days 05/12/22 08/05/23 08/04/23 Rx release (Protonix) #90 tabs hydrocodone 7.5 mg-acetaminophen 1 tab PO Q4H PRN Pain 07/31/22 08/05/23 08/04/23 History 325 mg tablet diclofenac sodium 1 % topical gel See Rx Instructions .Route 10/24/22 08/05/23 08/04/23 Rx .COMPLEX #100 grams escitalopram oxalate 20 mg tablet 20 mg PO DAILY mood #90 tabs 02/06/23 08/05/23 08/04/23 Rx line maintainer knee brace #1 ea 02/11/23 07/24/23 Unknown Rx levothyroxine 88 mcg tablet 88 mcg PO DAILY #90 tabs 03/05/23 08/05/23 08/04/23 Rx isosorbide mononitrate 30 mg See Rx Instructions .Route 05/17/23 08/05/23 08/04/23 Rx tablet,extended release 24 hr .COMPLEX #135 tabs alprazolam 1 mg tablet 1 mg PO QID anxiety #120 tabs 07/19/23 08/05/23 08/04/23 Rx metformin 500 mg tablet 500 mg PO BID 08/05/23 08/05/23 08/01/23 History Allergies Allergy/AdvReac Type Severity Reaction Status Date / Time doxycycline Allergy Mild vomiting Verified 07/30/23 14:21 gabapentin [From Neurontin] Allergy Mild not Verified 07/30/23 14:21 effective fluoxetine [From Prozac] Allergy ADR-Nausea Verified 07/30/23 14:21 lovastatin Allergy Unknown Verified 07/30/23 14:21 [facility] Anesthesia Medical History Anemia History of colonic polyps Tubular adenoma FRED (obstructive sleep apnea) Tubular adenoma Gastritis Diverticulitis Breast cancer, right breast Prediabetes Anxiety DJD (degenerative joint disease) PAD (peripheral artery disease) Hypothyroidism Surgical History History of right mastectomy (11/15/21) Right mastectomy with axillary sentinel lymph node biopsy S/P knee surgery History of esophagogastroduodenoscopy (EGD) 10 + years ago Hx of colonoscopy 10 + years ago Hx laparoscopic cholecystectomy Hx of hysterectomy S/P foot surgery, left Family History Mother Diabetes Hypertension Stroke Sister Cancer Dementia Brother Cancer Social History Smoking and tobacco/nicotine status: never used tobacco/nicotine Alcohol intake: never Substance/Drug Use: never Data Anesthesia Cardiac Studies: Sestamibi Stress Test (Cardiology) 05/25/22
[2023-08-05] MEDS: sodium chloride 0.9% 1,000 ML 30 ML IV (10:57)
[2023-08-05] MEDS: acetaminophen 1,000 MG/100 ML PIGGYBACK 400 MG IV ×2 (11:02→20:31)
[2023-08-05] MEDS: ketorolac 30 mg/mL INJ IVP (11:02)
[2023-08-05 11:05] LABS: Glucose Point of Care 121 mg/dL (70-110)
--- NOTE | 2023-08-05 11:21 | ANES.PROC ---
Anesthesia Procedures Procedure/Date: 08/05/23 Nerve Block ^: Nerve Block 1: Main Anesthesia: spinal anesthesia block Time Out Performed: Yes Consent: requested by attending/covering physician, from patient, from other, risks and benefits reviewed and patient agrees to proceed Nerve block location: adductor canal (L) Anesthesia monitors applied: pulse oximetry, EKG, BP cuff and oxygen Nerve block position: supine Anesthetic Used: ropivicaine 0.5% (30 ml) and with decadron (4 mg) Ultrasound used to: recognize landmarks and visualize and ID femerol nerve Nerve Stimulator Used?: No Interscalene/Femoral BLK: 4 stimuplex 21 g needle used for position and inplane approach, visualize local anesthetic spread and no vascular puncture identified Injection: neg aspiration of heme Patient Tolerated Procedure: well Complications: none
[2023-08-05 11:29] LABS: Basophils % 0.7 %; Eosinophils # 0.1 10^3/uL (0.0-0.8); Eosinophils % 2.5 %; Hematocrit 32.5 % (36-47); Lymphocytes # 1.1 10^3/uL (0.8-4.8); Lymphocytes % 38.9 %; Mean Corpuscular HGB Conc 32.9 g/dL (30-55); Mean Corpuscular Hemoglobin 31.4 pg (27-33); Mean Corpuscular Volume 95.3 fl (85-98); Mean Platelet Volume 10.1 fL (7.4-10.4); Monocytes # 0.2 10^3/uL (0.2-0.9); Monocytes % 7.7 %; Neutrophils # 1.42 10^3/uL (1.8-7.7); Neutrophils % 49.8 %; Nucleated Red Blood Cells % 0 %; Platelet Count 86 10^3/cmm (157-399); Red Blood Count 3.41 10^6/uL (3.85-5.65); Red Cell Distribution Width 13.8 % (12.1-15.1); White Blood Count 2.85 10^3/uL (3.29-11.43)
[2023-08-05 11:46] LABS: Anion Gap 12.1 (5-19); Blood Urea Nitrogen 17 mg/dL (8-23); Calcium 8.5 mg/dL (8.5-10.5); Carbon Dioxide 24 mmol/L (22-29); Chloride 106 mmol/L (98-107); Creatinine Clr Calc Pharmacy 81.3277; Glomerular Filtration Rate 100.3 mL/min (90-130); Glucose 131 mg/dL (65-115); Osmolality Calculated 289 mOsm/kg (285-295); Potassium 4.1 mmol/L (3.5-5.1); Sodium 138 mmol/L (136-145)
--- NOTE | 2023-08-05 11:57 | W.PM.OPSFHP ---
Same Day Surgery H&P Indication for Procedure/HPI DATE OF PROCEDURE: August 05, 2023 CHIEF COMPLAINT/INDICATIONFOR SURGICAL PROCEDURE: Left knee degenerative joint disease PREOP DIAGNOSIS: Left Knee DJD PLANNED PROCEDURE: Operation Date: 08/05/23 12:10 Proposed Procedures p Neo Robot Total Knee Arthroplasty(Left) - Hasmukh Johnson DO Medications/Allergies* Home Medications Medication Instructions Recorded Confirmed Type hydrocodone 7.5 mg-acetaminophen 1 tab PO Q4H PRN Pain 07/31/22 08/05/23 History 325 mg tablet metformin 500 mg tablet 500 mg PO BID 08/05/23 08/05/23 History Allergies/Adverse Reactions Allergy/AdvReac Type Severity Reaction Status Date / Time doxycycline Allergy Mild vomiting Verified 07/30/23 14:21 gabapentin [From Neurontin] Allergy Mild not Verified 07/30/23 14:21 effective fluoxetine [From Prozac] Allergy ADR-Nausea Verified 07/30/23 14:21 lovastatin Allergy Unknown Verified 07/30/23 14:21 Current Medications: Generic Name Dose Route Start Last Admin Trade Name Freq PRN Reason Stop Dose Admin Sodium Chloride 1,000 mls @ 30 mls/hr 08/05/23 10:30 08/05/23 10:57 Sodium Chloride 0.9% IV 08/06/23 10:29 30 mls/hr .Q24H ELIZA Administration Pertinent History/Comorbid Conditions* Medical History (Updated 05/30/23 @ 11:20 by Tarun Chawla MD) Anemia History of colonic polyps Tubular adenoma FRED (obstructive sleep apnea) Tubular adenoma Gastritis Diverticulitis Breast cancer, right breast Prediabetes Anxiety DJD (degenerative joint disease) PAD (peripheral artery disease) Hypothyroidism Surgical History (Updated 05/30/23 @ 11:19 by Tarun Chawla MD) History of right mastectomy (11/15/21) Right mastectomy with axillary sentinel lymph node biopsy S/P knee surgery History of esophagogastroduodenoscopy (EGD) 10 + years ago Hx of colonoscopy 10 + years ago Hx laparoscopic cholecystectomy Hx of hysterectomy S/P foot surgery, left Family History (Updated 06/04/19 @ 11:06 by Tiny Varma RN) Diabetes Mother Dementia Sister Cancer Sister Brother Hypertension Mother Stroke Mother Social History Smoking and tobacco/nicotine status: never used tobacco/nicotine Alcohol intake: never Substance/Drug Use: never Pertinent Exam Findings alert, oriented x 3, operative site marked and procedure specific exam findings Patient has left knee 10 degree varus deformity appreciated please refer to previous office note on 06/18/2023 for detailed orthopedic examination: Left Knee Exam: ROM 0 to greater than 115 degrees Patellar crepitus with ROM Medial joint line tenderness to palpation Lateral joint line tenderness to palpation Mild joint effusion Negative Kelly's 10 degrees of Varus malalignment, correctable on exam Stable Varus and Valgus stress Gross motor sensory intact Recommendations Surgery/Procedure today Other Plans: Plan to proceed with left total knee arthroplasty Neo robotic assisted. Patient has [id number] arthritis. She is with the preoperative clearance process is cleared to proceed with surgery her A1c is controlled and under the preoperative goal. Her UA has been monitored and showed no pathologic growth and cleared by preoperative clinic. No change in overall health prior to his visit. Patient understands the ins and outs of procedure the risk benefits complication alternatives of surgery and through shared decision make elects proceed with surgical intervention today of left total knee arthroplasty Neo robotic assisted. All questions answered. Coding Level of Care Code Acute Code for Billy Prado
[2023-08-05] MEDS: ceFAZolin 2,000 MG in sodium chloride 0.9% (plus) 50 ML 100 MG IV ×2 (12:21→20:31)
[2023-08-05] MEDS: tranexamic acid 1,000 mg/10mL SDV 1000 MG IV (13:00)
[2023-08-05] MEDS: tranexamic acid 1,000 mg/10mL SDV 1000 MG XX (13:26)
[2023-08-05] MEDS: ketorolac 30 mg/mL INJ XX (13:27)
[2023-08-05] MEDS: ROPivacaine 0.2% Premix 100 mL 200 MG INTRA-ARTI (13:27)
[2023-08-05] MEDS: vancomycin 1,000 MG SDV 1000 MG XX (13:28)
[2023-08-05] MEDS: EPINEPHrine 1 mg/mL INJ XX (13:28)
--- NOTE | 2023-08-05 14:25 | W.PM.BPON ---
Date of Procedure: 08/05/2023 Surgeon: Hasmukh Johnson DO Photostat Operator Helper(s): AREN Emery Procedure(s) performed: Left total knee arthroplasty?Neo robotic assisted Findings of the procedure(s): Left knee severe degenerative joint disease underwent procedure as planned without issues or complications Estimated blood loss: 100 mL Specimen(s) removed: Tibia femur and patellar bone cuts removed Post-operative diagnosis: Left knee degenerative joint disease
--- NOTE | 2023-08-05 14:26 | P.OP_ITS ---
Operative Report Date of procedure: August 05, 2023 Surgeon: Hasmukh Johnson DO Electronics Utility Worker: AREN Emery Procedure: Preoperative diagnosis: Left knee degenerative joint disease Post-op diagnosis: Same Procedure done: Left total knee arthroplasty, cemented?robotic assisted Neo Implants: [place] triathlon size 2 femur CR cemented?left [place] triathlon size? 2 tibia universal baseplate cemented [place] triathlon symmetric patella size 27 mm Aline triathlon polyethylene 9mm Surgeon: Hasmukh Johnson DO Estimated blood?loss: 100 mL Tourniquet 58minutes IV fluids: 1200 mL Urine output: 450 mL Complications: None Condition: stable Disposition: floor Brief History: Patient is a 67-year-old female with with chronic?left knee degenerative joint disease.? Patient has been worked up in the outpatient setting in the orthopedic office at this point time through shared decision making given? [id number] arthritis as well as failed conservative treatment, and pt would?like to proceed with a?left total knee arthroplasty.? Through shared decision making elected to proceed with surgical intervention for?left total knee arthroplasty.? We talked about continued conservative treatment and surgical intervention as far as the risk benefits complications alternatives surgical and nonsurgical treatment options.? At this point time understanding patient risks with surgery he agrees to proceed with surgical intervention.? Once again? risk with surgery include but are not?limited to make it better make it worse blood clot, heart attack, stroke, on the table, infection, injury to nerves or vessels, persistent pain, arthrofibrosis, implant failure.? Understanding these risks patient agrees to proceed with surgical intervention consent was obtained in the office.? All questions answered. Procedure: Patient was seen and evaluated in the preoperative holding area.? Consent was reviewed and signed with patient with plan for?left total knee arthroplasty.? All questions answered.? Correct extremity marked.? Patient seen and evaluated by the anesthesia department and once cleared for surgery was taken back to the operative suite.? Patient was placed into a supine position on the OR table.? All bony prominences were well-padded.? Patient was appropriately secured to the bed.? Patient underwent anesthesia per the anesthesia department.? Patient received spinal anesthesia and? Whyte catheter was placed.? A nonsterile tourniquet was applied to the?left thigh.? At this point in time a final timeout performed.? Patient received appropriate preoperative antibiotics and TXA. Next the?left?lower extremity was then prepped and draped in standard orthopedic fashion. Esmarch tourniquet was used exsanguinate the?left?lower extremity.? Tourniquet was insufflated to 250 mmHg. A standard anterior incision was made over midline of the knee.? Sharp scalpel excision through skin and subcutaneous tissue full-thickness skin flaps were made.? Fascia was elevated off of the extensor retinaculum was stable with medial parapatellar arthrotomy was then made.? The performed standard sequential releases..? Immediately on entry into the joint patient was found to have severe eburnated bone and tricompartmental arthritic changes noted.? With significant osteophyte formation.? Next the the patella was then stuffed and the knee was t hen flexed.?? Fanny was placed superiorly around the anterior aspect of the femur this was freed of synovium and I subsequently then placed by 2 femur pins to establish my femur arrays for the Neo robot.? These were then placed bicortically and? femur array was then appropriately secured with appropriate visualization.? Next attention was turned towards the tibial rays.? These were then drilled sequentially bicortically in parallel fashion and intraincisional.? I then placed my guide as well as my tibial array on in place.? This was appropriately secured and had excellent visualization with the Neo robot.? Next the tibial checkpoint as well as femur checkpoint were then placed.? At this point time I then subsequently established my head center as well as my medial?lateral malleoli as well as my checkpoints.? Next utilizing standard Neo technology I then mapped out the appropriate points and confirmation points around the femur as well as the tibia in standard fashion.? Once this was then done I then removed all osteophytes in preparation for dynamic testing.? All osteophytes were removed as well as I removed the ACL and the PCL was excised due to its significant tearing and degeneration noted.? At this point time the knee was brought into full extension and we performed our standard evaluation of our gap balancing stressing his?ligaments and extension as well as flexion appropriate adjustments were made to have appropriate gap balancing in both flexion and extension.? This plan for final counts.? We get a preoperative plan evaluating our implants which was a size 2 femur and a size 2 tibia.? Next we brought in the Neo robot and sequentially made our femur cuts.? All excess bony cuts were then removed.? Finally we made our tibial cut.? Once this was done a standard PCL retractor was then placed into this position I excised the medial and?lateral meniscus.? The tibial cut was then subsequently removed all excess bony debris was removed.? I then utilized a?lamina cnc router operator and remove the posterior osteophytes.? At this point time sized the tibia and confirmed this was a size 2.? I utilized our blunt probe to establish rotation of tibial implant.? Once this was done I then placed my tibia size 2 trial in appropriate position and then subsequently placed tibial pins to hold this into place placed a size 9 mm poly as well as a size 2 femur which was appropriately impacted in place knee was then subsequently brought into extension. Trials were then assessed,? this was stable with varus valgus stress in extension as well as had symmetrical translation when brought into flexion demonstrating symmetrical gaps. I had excellent balance gaps in flexion and extension with varus and valgus stresses.? At this point I was satisfied with these implants these were then verified and opened on the back table size 2 tibia, size 2 femur,? size 9 mm polythickness.? We did confirm appropriate gap balancing and stresses as well as alignment utilizing? gumi and were satisfied with this plan.? ?At this point time with my trials in place I then towel clip the patella everted this made appropriate measurements subsequently utilizing freehand technique performed by patellar resurfacing this was confirmed to be appropriate resection and subsequently sized to be a 27 mm symmetric.? My drill peg guides were then clamped and appropriate position and appropriate position in the patella for appropriate tracking and parallel with the joint.? Pegs were drilled trial implant was placed and the knee was then subsequently ranged and found to have excellent patellar tracking.? Femur pegs were then drilled.? Satisfied with our tibial placement rotation I then utilized the keel punch and prepped the tibia.? At this point time all of our trial implants were removed.? All checkpoints as well as guidepins and arrays were removed and appropriate counts made.? The wound bed? was thoroughly irrigated and dried and prepped for cementation.? Cement was mixed on the back table.? Once cement was ready this was then covered onto the tibia and the tibial baseplate was then impacted and all excess cement was removed.? Next the polyethylene was then impacted into place on the tibial baseplate.? Next cement was placed onto the femur as well as under the femur implants and impacted in to place and all excess cement was extruded and removed.? Knee was taken into full extension? to clear all excess cement was removed.? Warm saline was placed over the joint.? I then towel clip patella and dried for cementation. cemented the patella into place.? This was all clamped and the cement was allowed to cure.? Thorough irrigation performed with pulse?lavage.? I then placed my periarticular injection while the cement was curing.? Once cured the knee was taken through range of motion and had excellent stability and gaps were balanced in flexion and extension.? Tourniquet was then deflated. hemostasis satisfactory with electrocautery.? Vancomycin powder was placed in wound for infection prophylaxis. Next I then subsequently closed the capsule with Ethibond suture as well as a running strata fix suture.? Knee was then taken through range of motion with excellent patellar tracking and full range of motion and stability. Satisfactory closure..? Next the skin was then closed in?layered fashion of running stratifix sutures of deep and subcutenous tissue and skin.? ?closed in flexion and Prineo glue was then placed over the incision this allowed to cure.? Incision was covered with oskar, with ABDs soft roll and Gerardo wrap.? Patient was then awakened from anesthesia and taken to PACU in stable condition. Disposition: Patient taken to PACU in stable condition will be admitted to the floor for pain control PT/OT weight-bear as tolerated?left?lower extremity dress ing changes as needed, DVT prophylaxis. Pain control. Patient will receive appropriate postoperative antibiotics. patient will be seen today by the internal medicine team for medical management.? Patient will follow up with the office in 2 weeks.? Patient understands agrees with current plan.? All questions answered.
--- NOTE | 2023-08-05 14:39 | XR_ITS ---
WS: [id number] KNEE LEFT TECHNIQUE: 2 views of the left knee CLINICAL INFORMATION: post L TKA FINDINGS: Recent postoperative changes LEFT TKA. Hardware appears in good position. Patellar resurfacing. IMPRESSION: Unremarkable for postoperative purposes. Kellgren-He Classification: NA
--- NOTE | 2023-08-05 14:45 | P.CONIM_ITS ---
Providers/Reason For Consult 2 Consulting Physician/Specialty*: family medicine Reason for Consult*: medical management Requesting Physician: Dr. Johnson Attending Physician: Hasmukh Johnson DO Primary Care Provider: Rex Kumar DO History of Present Illness History of Present Illness Maria Maxwell is a 67 year old female with Hx of HTN, DM2, anxiety, MDD, hypothyroidism and GERD presented to [facility] for an elective LEFT total knee arthroplasty via ALICIA. Consulted through request by Dr. Johnson. pt tolerated surgery well w/o post-surgical complications. Seen at bedside today and is still recovering from the anesthesia. Currently she states pain is well controlled but admits to being very sleepy at this time. denies pain in LEFT extremity. Denies CP, palpitations, SOB, cough, N/V/D/C, abd pain, SHEEHAN, vision changes, loss of sensation or strength in extremities Review of Systems 2 General: Reports: 10 or more systems reviewed and unremarkable except in HPI and below Const: Denies: fever(s) or chills ENMT: Denies: throat pain Card: Denies: chest pain, palpitations or dyspnea on exertion Resp: Denies: dyspnea, productive cough, non-productive cough or wheezing GI: Denies: abdominal pain, nausea, vomiting, diarrhea or constipation Musc: Reports: extremity pain (left leg) Neuro: Denies: headache(s), numbness in extremities or weakness in extremities Medications/Allergies Home Medications Medication Instructions Recorded Confirmed Last Taken Type nitroglycerin 0.4 mg sublingual 0.4 mg sublingual Q5M PRN chest 04/11/21 08/02/23 Unknown Rx tablet (Nitrostat) pain #25 tabs pantoprazole 40 mg tablet,delayed 40 mg PO QAM for stomach 90 days 05/12/22 08/05/23 08/04/23 Rx release (Protonix) #90 tabs hydrocodone 7.5 mg-acetaminophen 1 tab PO Q4H PRN Pain 07/31/22 08/05/23 08/04/23 History 325 mg tablet diclofenac sodium 1 % topical gel See Rx Instructions .Route 10/24/22 08/05/23 08/04/23 Rx .COMPLEX #100 grams escitalopram oxalate 20 mg tablet 20 mg PO DAILY mood #90 tabs 02/06/23 08/05/23 08/04/23 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 #1 ea 02/11/23 07/24/23 Unknown Rx levothyroxine 88 mcg tablet 88 mcg PO DAILY #90 tabs 03/05/23 08/05/23 08/04/23 Rx isosorbide mononitrate 30 mg See Rx Instructions .Route 05/17/23 08/05/23 08/04/23 Rx tablet,extended release 24 hr .COMPLEX #135 tabs alprazolam 1 mg tablet 1 mg PO QID anxiety #120 tabs 07/19/23 08/05/23 08/04/23 Rx metformin 500 mg tablet 500 mg PO BID 08/05/23 08/05/23 08/01/23 History Allergies Allergy/AdvReac Type Severity Reaction Status Date / Time doxycycline Allergy Mild vomiting Verified 07/30/23 14:21 gabapentin [From Neurontin] Allergy Mild not Verified 07/30/23 14:21 effective fluoxetine [From Prozac] Allergy ADR-Nausea Verified 07/30/23 14:21 lovastatin Allergy Unknown Verified 07/30/23 14:21 Current Medications Generic Name Dose Route Start Last Admin Trade Name Freq PRN Reason Stop Dose Admin Sodium Chloride 1,000 mls @ 30 mls/hr 08/05/23 10:30 08/05/23 13:29 Sodium Chloride 0.9% IV 08/06/23 10:29 Infused .Q24H ELIZA Infusion PFSH Acute 2 PFSH: Medical History (Updated 08/05/23 @ 14:49 by Indio Mari MD) Anemia History of colonic polyps Tubular adenoma FRED (obstructive sleep apnea) Tubular adenoma Gastritis Diverticulitis Breast cancer, right breast Prediabetes Anxiety DJD (degenerative joint disease) PAD (peripheral artery disease) Hypothyroidism Surgical History History of right mastectomy (11/15/21) Right mastectomy with axillary sentinel lymph node biopsy S/P knee surgery History of esophagogastroduodenoscopy (EGD) 10 + years ago Hx of colonoscopy 10 + years ago Hx laparoscopic cholecystectomy Hx of hysterectomy S/P foot surgery, left Family History Mother Diabetes Hypertension Stroke Sister Cancer Dementia Brother Cancer Social History Smoking and tobacco/nicotine status: never used tobacco/nicotine Alcohol intake: never Substance/Drug Use: never Vitals/I&O/Wt Last Vital Signs Temp 98.3 F 08/05/23 10:49 Pulse 72 08/05/23 10:49 Resp 16 08/05/23 10:49 BP 144/71 08/05/23 10:49 Pulse Ox 93 08/05/23 10:49 O2 Del Method Room Air 08/05/23 10:49 08/04/23 08/05/23 08/05/23 22:59 06:59 14:59 Intake Total 1050 / 1050 Balance 1050 / 1050 Weight last 48 hrs Weight 162 lb Physical Exam 2 Narrative: General: AOx3, no acute distress, sleepy Oropharynx: good dentition, pink moist mucosa, Neck: FROM, no lymphadenopathy, CVD: RRR, normal S1 and S2, no M/R/G. 2+ pulse x 4 extremities, no JVD, no carotid bruit. Lungs: clear lung sounds in all campbell, no rhonchi, wheezing, rales. Abdomen: NT, ND, soft, NABS. No hepatosplenomegaly, no mass. umbilicus midline w/o herniation Extremities: FROM and 5/5 strength in BUE and RLE. L leg: C/D/I intact, good sensation in distal extremity Neuro: CNII-XII grossly intact. No atrophy, weakness, tremors or clonus.? 2+ DTR, no sensory abnormalities. Skin:? no rash, vesicles, lesions. Urinary Catheter Management: Whyte: Cath Placed During This Visit: yes Urinary Catheter Date of Insertion: 08/05/23 Urinary Catheter Time of Insertion: 12:48 Data 08/05/23 11:20 08/05/23 11:20 A&P Assessment and plan (1) Anxiety: (2) Hypertension: Qualifiers: Hypertension type: essential hypertension Qualified Code(s): I10 - Essential (primary) hypertension (3) Hypothyroidism: (4) Prediabetes: Plan Assessment s/p LEFT totalk nee arthroplasty -Dr. Johnson HTN pre-DM2 anxiety hypothyroidism Plan -Consulted for medication services -restart home medication -HOLD metformin, will start LDSSI with accuchecks -pain management per ortho -PT/OT consulted -once cleared by surgery can be discharged, likely in AM -advance diet as tolerated -FULL CODE -richard for DVT prophylaxis Coding Level of Care Code 47369 Diagnoses Anxiety F41.9 Essential hypertension I10 Hypertension type: essential hypertension Hypothyroidism E03.9 Prediabetes R73.03
--- NOTE | 2023-08-05 15:47 | PC.NURSE ---
1545 - spot check of glucose at 177
[2023-08-05 15:48] LABS: Glucose Point of Care 177 mg/dL (70-110)
--- NOTE | 2023-08-05 16:05 | ANE.PACU2 ---
Inpatient post-anesthesia follow up: Airway intact: Yes Vital signs: Temperature 98.5 F Pulse Rate 79 Respiratory Rate 16 Blood Pressure 132/79 Pulse Oximetry 92 Oxygen Delivery Me thod Nasal Cannula Oxygen Flow Rate 4 Fraction of Inspir ed Oxygen Hydration adequate: Yes Nausea and vomiting: No Pain level: 1 Mental status: Baseline
--- NOTE | 2023-08-05 16:57 | PC.PT ---
Evaluation attempted. Pt is still coming out of anaesthesia and numb in her legs and in pain. Hold until tomorrow per nursing.
[2023-08-05 17:04] LABS: Glucose Point of Care 179 mg/dL (70-110)
[2023-08-05] MEDS: lactated ringers 1,000 ML 100 ML IV (20:06)
[2023-08-05] MEDS: chlorhexidine gluconate 0.12% Btl 473 mL 30 ML MUCOUS MEM (20:08)
[2023-08-05] MEDS: mupirocin oint 22 gm 1 APPLIC NASAL (20:09)
[2023-08-05] MEDS: calcium carb-vit d 600mg/400unit 1 Tablet 1 EACH PO (20:10)
[2023-08-05] MEDS: docusate sodium 100 mg Capsule PO (20:10)
[2023-08-05] MEDS: isosorbide mononitrate ER 30 mg Tablet 15 MG PO (20:11)
[2023-08-05] MEDS: ALPRAZolam 0.5 mg Tablet 1 MG PO (20:12)
[2023-08-05] MEDS: iron polysaccharide complex 150 mg Capsule PO (20:12)
[2023-08-05] MEDS: tranexamic acid 1,000 MG/100 ML PREMIX 600 MG IV (20:15)
[2023-08-05 20:57] LABS: Glucose Point of Care 276 mg/dL (70-110)
[2023-08-05] MEDS: insulin lispro 100 unit/1 mL SUBCUT (21:00)
[2023-08-06] MEDS: acetaminophen 1,000 MG/100 ML PIGGYBACK 400 MG IV ×2 (02:15→11:42)
[2023-08-06 03:15] VITALS: BP 115/73; PULSE 69; RESP 16; TEMP 36.5; O2SAT 99
[2023-08-06] MEDS: lactated ringers 1,000 ML 100 ML IV (05:40)
[2023-08-06] MEDS: ceFAZolin 2,000 MG in sodium chloride 0.9% (plus) 50 ML 100 MG IV ×2 (05:41→11:43)
[2023-08-06] MEDS: isosorbide mononitrate ER 30 mg Tablet PO (05:43)
[2023-08-06] MEDS: pantoprazole DR 40 mg Tablet PO (05:43)
[2023-08-06 05:51] LABS: Hematocrit 32.4 % (36-47); Lymphocytes # 0.5 10^3/uL (0.8-4.8); Lymphocytes % 9.1 %; Mean Corpuscular HGB Conc 32.1 g/dL (30-55); Mean Corpuscular Volume 96.4 fl (85-98); Mean Platelet Volume 10.8 fL (7.4-10.4); Monocytes # 0.2 10^3/uL (0.2-0.9); Monocytes % 3.3 %; Neutrophils # 4.71 10^3/uL (1.8-7.7); Neutrophils % 87.2 %; Nucleated Red Blood Cells % 0 %; Platelet Count 73 10^3/cmm (157-399); Red Blood Count 3.36 10^6/uL (3.85-5.65); Red Cell Distribution Width 13.3 % (12.1-15.1)
[2023-08-06 06:15] LABS: Anion Gap 11.5 (5-19); Blood Urea Nitrogen 19 mg/dL (8-23); Calcium 8.3 mg/dL (8.5-10.5); Carbon Dioxide 25 mmol/L (22-29); Chloride 104 mmol/L (98-107); Creatinine Clr Calc Pharmacy 87.1007; Glomerular Filtration Rate 100.3 mL/min (90-130); Glucose 193 mg/dL (65-115); Osmolality Calculated 290 mOsm/kg (285-295); Potassium 4.5 mmol/L (3.5-5.1); Sodium 136 mmol/L (136-145)
[2023-08-06 06:38] LABS: Glucose Point of Care 207 mg/dL (70-110)
[2023-08-06 07:31] VITALS: BP 128/64; PULSE 73; RESP 16; TEMP 36.7; O2SAT 94
--- NOTE | 2023-08-06 07:58 | PC.PHAR ---
PT STATES SHE TAKES CARE OF HER OWN MEDICATIONS-PT STATES SHE NO LONGER TAKES ANASTROZOLE 1MG DAILY FILLED 06/21/23 90D/S,LIPITOR 20MG DAILY FILLED 06/15/23 90D/S OR VITAMIN D2 32480 UNITS Q7D FILLED 03/29/24 2D/S PT STATES THE DR RAMIREZ STATES ANASTROZOLE WAS DCED ABOUT A MONTH AGO-PT STATES THE ONLY CREAM SHE IS USING KETOCONAZOLE STATES ALL OTHER CREAMS WERE DCED-PT STATES SHE IS STILL TAKING ESCITALOPRAM 20MG HS EXT SHOWS LAST FILLED 02/06/23 90D/S-
[2023-08-06] MEDS: escitalopram 10 mg Tablet 20 MG PO (08:34)
[2023-08-06 08:35] VITALS: RESP 18
[2023-08-06] MEDS: ketorolac 30 mg/mL INJ 15 MG IVP ×2 (08:35→13:41)
[2023-08-06] MEDS: ALPRAZolam 0.5 mg Tablet 1 MG PO ×2 (08:35→13:35)
[2023-08-06] MEDS: iron polysaccharide complex 150 mg Capsule PO (08:35)
[2023-08-06] MEDS: oxyCODONE 5 mg IR Tab/Cap PO ×2 (08:35→13:35)
[2023-08-06] MEDS: docusate sodium 100 mg Capsule PO (08:35)
[2023-08-06] MEDS: calcium carb-vit d 600mg/400unit 1 Tablet 1 EACH PO (08:35)
[2023-08-06] MEDS: multivitamin therapeutic Tablet 1 TAB PO (08:35)
[2023-08-06] MEDS: levothyroxine 88 mcg Tablet PO (08:35)
[2023-08-06] MEDS: insulin lispro 100 unit/1 mL SUBCUT ×2 (08:36→11:43)
[2023-08-06] MEDS: apixaban 5 mg Tablet 2.5 MG PO (08:49)
[2023-08-06] MEDS: chlorhexidine gluconate 0.12% Btl 473 mL 30 ML MUCOUS MEM (08:50)
[2023-08-06] MEDS: mupirocin oint 22 gm 1 APPLIC NASAL (08:50)
--- NOTE | 2023-08-06 09:03 | PC.CHAP ---
Pastoral Care Encounter/Spiritual Assessment Type of Contact [] Declined steamblaster visit [] Patient/Family/Request visit [] Outpatient visit [] Follow-up visit [] Physician referral [] Code/Alert [x] Routine visit [] Staff referral [] Actively dying [] Patient sleeping [x] Family support [] [] Out of room [] Palliative care [] [] Receiving care in room [] Pre-surgical visit [] Trauma [] Long length of stay [] ICU visit [] Other: Relational/Emotional Strength [x] Patient feels connected with others/family/visitors/staff [] Distress [] Loneliness/isolation [] Abandonment Spirituality of Patient [x] Person of Aletha [] Attends Sikh of their Aletha [x] Believes in Prayer [] Reads Bible or Protestant materials [] There are Spiritual issues to be addressed Leather Tanner Interventions [x] Prayer [x] Active listening [] Non-anxious presence [x] Spiritual/emotional support [] Crisis/trauma care [] Spiritual counseling [] Bereavement support [] Provided bereavement packet [] Provided Bible/devotional materials [] Provided toy/stuffed animal, coloring book to patient or family member [] Provided Communion [] Anointing/[place] [] Salvation [] Completed spiritual assessment [] Other: Impact on Illness or Injury [] Angry [] Fearful [] Anxious [] Often cries [] Exhaustion [] Unable to work [] Unable to attend rastafari [] Unable to walk/stand [] Unable to read [] Unable to drive [] Unable to eat/drink [] Unable to sleep [] Unable to be with family [] Patient intubated [] Other: Summary Time spent with patient 5 min
--- NOTE | 2023-08-06 10:15 | P.PN_ITS ---
Subjective 2 Subjective: seen at bedside this AM, POD #1 slept well overnight. tolerating PO mcdonald removed at 06:00. no volutary voiding since. states pain is well controlled. has been seen by Dr. Johnson this AM. will await PT and re-eval. no discussion on disposition yet. Denies CP, palpitations, SOB, cough, N/V/D/C, abd pain, SHEEHAN, vision changes, loss of sensation or strength in extremities Medications: Reviewed: Yes Vitals/I&O/Wt Last Vital Signs Temp 98.1 F 08/06/23 07:31 Pulse 73 08/06/23 07:31 Resp 18 08/06/23 08:35 BP 128/64 08/06/23 07:31 Pulse Ox 94 08/06/23 07:31 O2 Del Method Nasal Cannula 08/06/23 07:31 O2 Flow Rate 3 08/06/23 07:31 08/05/23 08/06/23 08/06/23 22:59 06:59 14:59 Intake Total 650 / 1950 1106.667 / 3056.667 240 / 240 Output Total 550 / 1100 500 / 1600 Balance 100 / 850 606.667 / 1456.667 240 / 240 Weight last 48 hrs Weight 173 lb 8 oz Weight 162 lb Weight 162 lb Physical Exam 2 Narrative: General: AOx3, no acute distress, sitting in chair Oropharynx: good dentition, pink moist mucosa, CVD: RRR, normal S1 and S2, no M/R/G. 2+ pulse x 4 extremities, no JVD, no carotid bruit. no ANAYA Lungs: clear lung sounds in all campbell, no rhonchi, wheezing, rales. Abdomen: NT, ND, soft, NABS. Extremities: FROM and 5/5 strength in BUE and RLE. L leg: C/D/I intact, good sensation in distal extremity Neuro: CNII-XII grossly intact, no sensory abnormalities. Skin:? no rash, vesicles, lesions. Urinary Catheter Management: Mcdonald: Cath Placed During This Visit: yes, but has since been removed by the nurse Reason for Continuing Indwelling Catheter: Perioperative Use in Selected Surgeries Urinary Catheter Date of Insertion: 08/05/23 Urinary Catheter Time of Insertion: 12:48 Date Urinary Catheter Removed: 08/06/23 Time Urinary Catheter Discontinued: 06:00 Data 08/06/23 05:38 08/06/23 05:38 A&P Assessment and plan (1) Anxiety: (2) Hypertension: Qualifiers: Hypertension type: essential hypertension Qualified Code(s): I10 - Essential (primary) hypertension (3) Hypothyroidism: (4) Prediabetes: Plan Assessment s/p LEFT totalk nee arthroplasty -Dr. Johnson HTN pre-DM2 anxiety hypothyroidism Plan -Consulted for medication services -HOLD metformin, LDSSI with accuchecks -pain management per ortho -PT/OT consulted -once cleared by surgery can be discharged, likely in AM of 08/07/23 -FULL CODE -richard for DVT prophylaxis Attestations 2 Medical Necessity Statement*: will require 2 overnight stays for post-surgical managment Coding Level of Care Code 97789 Diagnoses Anxiety F41.9 Essential hypertension I10 Hypertension type: essential hypertension Hypothyroidism E03.9 Prediabetes R73.03
[2023-08-06 10:42] VITALS: PULSE 87; O2SAT 92
[2023-08-06 11:21] LABS: Glucose Point of Care 298 mg/dL (70-110)
[2023-08-06 13:35] VITALS: RESP 18
[2023-08-06] MEDS: ketoconazole Cream 15 gm TOPICAL (16:02)
[2023-08-06 16:05] VITALS: RESP 18
--- NOTE | 2023-08-06 16:05 | PC.NURSE ---
Discharge Note Patient discharged to home via private vehicle accompanied by family. Discharge instructions reviewed with patient and/or auto claim representative. Mobile pharmacy medications and/or prescriptions provided. Belongings/home medications returned.
== END 2023-08-06 16:50 | disposition home or self-care (01) ==
LOC: MEDSURG 13:34
PROVIDERS: Admitting Provider Student in an Organized Health Care Education/Training Program; PCP Family Medicine; Visit Provider Student in an Organized Health Care Education/Training Program
PROC: 8E0Y0CZ Robotic Assisted Procedure of Lower Extremity, Open Approach (ICD-10-PCS; CPT 27447; principal; 2023-08-05 12:10)
DX: M17.12 Unilateral primary osteoarthritis, left knee (principal); I10 Essential (primary) hypertension; F41.9 Anxiety disorder, unspecified; E03.9 Hypothyroidism, unspecified; R73.03 Prediabetes; G47.33 Obstructive sleep apnea (adult) (pediatric); Z85.3 Personal history of malignant neoplasm of breast
CPT/HCPCS: 20985; 27447; 36415; 36416; 51702; 73560; 80048; 82962; 85025; 86850; 86900; 96372; 97162; 97165; C1776; G0378; J0131; J0171; J0690; J1100; J1170; J1815; J1885; J2250; J2405; J2704; J2795; J3010; J3370; J3490; J7030; J7120

== ENCOUNTER → 2023-08-27 10:28 | Outpatient (BNVA) | payer MEDICARE, SELFPAY | PROVIDERS: PCP Family Medicine; Visit Provider Physician Assistant | DX: Z96.652 Presence of left artificial knee joint (principal) | CPT/HCPCS: 73560; 73565 ==

== ENCOUNTER 2023-08-27 11:13 | Emergency (ER) | payer MEDICARE, SELFPAY ==
--- NOTE | 2023-08-27 11:43 | USCV_ITS ---
Maria Maxwell Age: 67 Gender: F : 1955 Exam Date: 08/27/2023 12:11 Ordering Phys: Kike Mosqueda MD Technologist: TORITO Exam Location: [facility] [place]_ Indication: LLE PAIN AND SWELLING. S/P LEFT TKR [id number] AGO HISTORY: Lower extremity swelling. Lower extremity pain. Status post knee surgery. PROCEDURES: Venous duplex imaging was performed in only the left lower extremity. The following venous structures were evaluated: common femoral vein, profunda vein, proximal portion of the greater saphenous vein, superficial femoral vein, and the popliteal vein. In addition, the posterior tibial and peroneal trunk were evaluated. Serial compression, augmentation maneuvers, and spectral Doppler flow evaluation were performed. FINDINGS: Normal 2-D Doppler and augmentation and compressibility throughout the lower extremity venous structures. Additional imaging through the proximal calf veins also reveals no thrombus. Limited evaluation of the greater saphenous vein is patent with no thrombus. Complex cystic mass with low level echos and no vascularityin the left popliteal fossa. CONCLUSIONS No DVT left lower extremity. Dr. Kizzy Miller DO (Electronically Signed) Final Date: 27 August 2023 15:32 S
[2023-08-27 11:50] VITALS: BP 124/82; PULSE 82; RESP 16; TEMP 36.7; O2SAT 94
--- NOTE | 2023-08-27 12:25 | ED_ITS ---
HPI - General Adult 2 General: Chief complaint: Extremity Injury, Lower Stated complaint: left leg pain, sent by Luis F Johnson Time Seen by Provider: 08/27/23 11:44 History of Present Illness: 67-year-old female presents emergency de partment after seeing Dr. Johnson. She states that she did have a left total knee replacement on 08/05/2023 and has been doing well since then. She does not appear to have any active infection at her surgical site. She states she does have pain to her left calf and bruising as well as tenderness to palpation to the back of her left knee. She states that she is concerned that she might have a blood clot and was advised by Dr. Johnson to come to the emergency department for evaluation. She denies numbness or tingling to the extremity. She denies poikilothermia Review of Systems 2 General: Reports: 10 or more systems reviewed and unremarkable except in HPI and below Musc: Reports: extremity pain and extremity swelling PFS ED 2 PFSH: Medical History Anemia History of colonic polyps Tubular adenoma FRED (obstructive sleep apnea) Tubular adenoma Gastritis Diverticulitis Breast cancer, right breast Prediabetes Anxiety DJD (degenerative joint disease) PAD (peripheral artery disease) Hypothyroidism Surgical History History of right mastectomy (11/15/21) Right mastectomy with axillary sentinel lymph node biopsy S/P knee surgery History of esophagogastroduodenoscopy (EGD) 10 + years ago Hx of colonoscopy 10 + years ago Hx laparoscopic cholecystectomy Hx of hysterectomy S/P foot surgery, left Family History Mother Diabetes Hypertension Stroke Sister Cancer Dementia Brother Cancer Social History Smoking and tobacco/nicotine status: former use of tobacco/nicotine Alcohol intake: never Substance/Drug Use: never Physical Exam 2 Narrative: EXAM NARRATIVE: General: Alert, no acute distress. Skin: Warm, dry, Intact. Head: Normocephalic, atraumatic. Neck: Supple, trachea midline. Eye: Extraocular movements are intact. PERRLA Ears, nose, mouth and throat: mucosa moist. Cardiovascular: Regular, Normal peripheral perfusion. Respiratory: Lungs are clear to auscultation, respirations are non-labored, breath sounds are equal, Symmetrical chest wall expansion. Gastrointestinal: Soft, Nontender, Non distended, Normal bowel sounds. Musculoskeletal: Normal ROM, no deformity. Left knee postoperative surgical site is without drainage or infection. Tender to palpation to the left popliteal space consistent with a Fortune's cyst. No obvious signs of infection 2+ pulses that are equal bilaterally in the upper and lower extremities. Neurological: Alert and oriented, No focal neurological deficit observed. Psychiatric: Cooperative, appropriate mood & affect. Course 2 Vital Signs: Vital signs: Vital Signs Temperature 98.0 F 08/27/23 11:50 Pulse Rate 82 08/27/23 11:50 Respiratory Rate 16 08/27/23 11:50 Blood Pressure 124/82 08/27/23 11:50 Pulse Oximetry 94 08/27/23 11:50 MDM - General Adult Medical Decision Making Physical exam completed and documented I will obtain a CBC and CMP as well as an ultrasound to rule out DVT. Differential Diagnosis DVT, postoperative pain, Fortune's cyst, Medical Records I reviewed the patient's medical records. Lab Data I reviewed the patient's lab results. 08/27/23 12:06 08/27/23 12:06 Laboratory Results WBC 4.36 10^3/uL (3.29-11.43) 08/27/23 12:06 RBC 4.02 10^6/uL (3.85-5.65) 08/27/23 12:06 Hgb 12.60 g/dL (11.27-16.99) 08/27/23 12:06 Hct 38.2 % (36-47) 08/27/23 12:06 MCV 95.0 fl (85-98) 08/27/23 12:06 MCH 31.3 pg (27-33) 08/27/23 12:06 MCHC 33.0 g/dL (30-55) 08/27/23 12:06 RDW 14.7 % (12.1-15.1) 08/27/23 12:06 Plt Count 149 10^3/cmm (157-399) L 08/27/23 12:06 MPV 9.7 fL (7.4-10.4) 08/27/23 12:06 Neut % (Auto) 68.8 % 08/27/23 12:06 Lymph % (Auto) 22.0 % 08/27/23 12:06 Bath % (Auto) 5.7 % 08/27/23 12:06 Eos % (Auto) 2.1 % 08/27/23 12:06 Baso % (Auto) 0.9 % 08/27/23 12:06 Neut # (Auto) 3.00 10^3/uL (1.8-7.7) 08/27/23 12:06 Lymph # (Auto) 1.0 10^3/uL (0.8-4.8) 08/27/23 12:06 Bath # (Auto) 0.3 10^3/uL (0.2-0.9) 08/27/23 12:06 Eos # (Auto) 0.1 10^3/uL (0.0-0.8) 08/27/23 12:06 Baso # (Auto) 0.0 10^3/uL (0.0-0.1) 08/27/23 12:06 Nucleated RBC % (auto) 0 % 08/27/23 12:06 Nucleated RBCs # 0.0 /100WBC 08/27/23 12:06 Sodium 134 mmol/L (136-145) L 08/27/23 12:06 Potassium 4.0 mmol/L (3.5-5.1) 08/27/23 12:06 Chloride 98 mmol/L (98-107) 08/27/23 12:06 Carbon Dioxide 24 mmol/L (22-29) 08/27/23 12:06 Anion Gap 16.0 (5-19) 08/27/23 12:06 BUN 11 mg/dL (8-23) 08/27/23 12:06 Creatinine 0.5 mg/dL (0.5-0.9) 08/27/23 12:06 GFR Calculation 123.8 mL/min (90-130) 08/27/23 12:06 Glucose 170 mg/dL (65-115) H 08/27/23 12:06 Calculated Osmolality 281 mOsm/kg (285-295) L 08/27/23 12:06 Calcium 10.0 mg/dL (8.5-10.5) 08/27/23 12:06 Total Bilirubin 1.0 mg/dL (0.15-1.2) 08/27/23 12:06 AST 46 U/L (0-32) H 08/27/23 12:06 ALT 21 U/L (0-33) 08/27/23 12:06 Alkaline Phosphatase 227 U/L (35-105) H 08/27/23 12:06 Total Protein 8.4 g/dL (6.6-8.7) 08/27/23 12:06 Albumin 4.1 g/dL (3.5-5.2) 08/27/23 12:06 Globulin 4.3 g/dL (1.3-4.6) 08/27/23 12:06 All radiology interpretation(s) finalized by discharge Discharge Plan Discharge Patient Disposition: Home Clinical Impression: Acute pain of left knee Fortune's cyst of knee Qualifiers: Laterality: left Qualified Code(s): M71.22 - Synovial cyst of popliteal space [Fortune], left knee Condition: Stable Prescriptions: No Action hydrocodone-acetaminophen 7.5-325 mg tablet 1 - 2 tab PO Q4H MDD 6 tabs PRN (Reason: Pain) Hold Instructions: Resume on 11/23/21. 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 See Rx Instructions .Route .MEDSUPPLY Qty: 1 0RF Rx Instructions: As directed diclofenac sodium 1 % gel See Rx Instructions .ROUTE .COMPLEX Qty: 100 5RF Dose Instruction: apply 2-4 grams ON affected knee UP TO THREE TIMES DAILY FOR pain Rx Instructions: apply 2-4 grams on affected knee up to tid prn pain escitalopram oxalate 20 mg tablet 20 mg PO DAILY Qty: 90 1RF levothyroxine 88 mcg tablet 88 mcg PO DAILY Qty: 90 1RF isosorbide mononitrate 30 mg tablet extended release 24 hr See Rx Instructions .ROUTE .COMPLEX Qty: 135 3RF Dose Instruction: TAKE 1 TABLET BY MOUTH EVERY MORNING and take 1/2 tablet AT BEDTIME Rx Instructions: TAKE 1 TABLET (30mg) BY MOUTH EVERY MORNING AND TAKE 1/2 TAB (15mg) AT BEDTIME alprazolam 1 mg tablet 1 mg PO QID Qty: 120 5RF pantoprazole [Protonix] 40 mg tablet,delayed release (DR/EC) 40 mg PO QAM 90 Days Qty: 90 3RF oxycodone 5 mg tablet 5 mg PO Q6H PRN (Reason: pain postop) 7 Days Qty: 28 0RF metformin 500 mg tablet 500 mg PO BID Aleve 220 mg Tablet 220 mg PO BID PRN (Reason: Pain) Nitrostat 0.4 mg Tablet, Sublingual 0.4 mg SUBLINGUAL Q5M PRN (Reason: Chest Pain) Rx Instructions: do not exceed 3 doses per episode ketoconazole 2 % cream See Rx Instructions .ROUTE .COMPLEX Rx Instructions: USE TWICE DAILY TO RED AREAS ON SKIN FOLD FOR THREE WEEKS THEN USE NEEDED Discharge Orders: Discharge ED (Routine); Ordered 08/27/23 Ordered By: Kike Mosqueda Referrals: Rex Kumar, [Primary Care Provider] - Patient Instructions: Opioid Safety, Pain Management Activity Restrictions/Additional Instructions: Activity Restrictions/Additional Instructions: Thank you for choosing [facility] for your healthcare needs today. Please realize that you were seen in the Emergency Department and that we are providing you with an emergency medical screening exam and this may not be a complete and all inclusive of all the testing and or medical work-up that you may need to determine your ailment or severity of your illness. It is very important that you follow-up as instructed with your Primary care provider or Specialist for additional evaluation and to discuss your medical treatment plan. Apply the Gerardo wrap to your left knee to help with the Fortune's cyst swelling to decrease you may utilize an ice pack to the back of the knee do not put the ice pack directly on the skin. You may alternate Tylenol and ibuprofen as needed. Coding Level of Care Code ED Asbestos Cement Sheet Supervisor for Billy Prado
[2023-08-27 12:27] LABS: Basophils % 0.9 %; Eosinophils # 0.1 10^3/uL (0.0-0.8); Eosinophils % 2.1 %; Hematocrit 38.2 % (36-47); Mean Corpuscular Hemoglobin 31.3 pg (27-33); Mean Platelet Volume 9.7 fL (7.4-10.4); Monocytes # 0.3 10^3/uL (0.2-0.9); Monocytes % 5.7 %; Neutrophils % 68.8 %; Nucleated Red Blood Cells % 0 %; Platelet Count 149 10^3/cmm (157-399); Red Blood Count 4.02 10^6/uL (3.85-5.65); Red Cell Distribution Width 14.7 % (12.1-15.1); White Blood Count 4.36 10^3/uL (3.29-11.43)
[2023-08-27 12:54] LABS: Alanine Aminotransferase 21 U/L (0-33); Albumin Level 4.1 g/dL (3.5-5.2); Alkaline Phosphatase 227 U/L (35-105); Aspartate Amino Transferase 46 U/L (0-32); Blood Urea Nitrogen 11 mg/dL (8-23); Carbon Dioxide 24 mmol/L (22-29); Chloride 98 mmol/L (98-107); Creatinine Clr Calc Pharmacy 72.7934; Globulin 4.3 g/dL (1.3-4.6); Glomerular Filtration Rate 123.8 mL/min (90-130); Glucose 170 mg/dL (65-115); Osmolality Calculated 281 mOsm/kg (285-295); Sodium 134 mmol/L (136-145); Total Protein 8.4 g/dL (6.6-8.7)
== END 2023-08-27 12:48 | disposition home or self-care (01) ==
PROVIDERS: Emergency Provider Internal Medicine; PCP Family Medicine
DX: M71.22 Synovial cyst of popliteal space [Baker], left knee (principal); Z87.891 Personal history of nicotine dependence; Z85.3 Personal history of malignant neoplasm of breast; Z96.652 Presence of left artificial knee joint
CPT/HCPCS: 36415; 73560; 73565; 80053; 85025; 93971; 99024

== ENCOUNTER 2023-09-09 09:58 | Outpatient (RCR) | payer MEDICARE, SELFPAY | END 2023-09-27 23:59 | disposition home or self-care (01) | LOC: SPT 09:58 | PROVIDERS: PCP Family Medicine; Visit Provider Physician Assistant | DX: Z47.1 Aftercare following joint replacement surgery (principal); Z96.652 Presence of left artificial knee joint | CPT/HCPCS: 97110; 97161 ==

== ENCOUNTER → 2023-09-30 11:21 | Outpatient (BNVA) | payer MEDICARE, SELFPAY | PROVIDERS: PCP Family Medicine; Visit Provider Nurse Practitioner Family | DX: L30.4 Erythema intertrigo (principal); D22.5 Melanocytic nevi of trunk | CPT/HCPCS: 99214 ==

== ENCOUNTER → 2023-10-08 10:11 | Outpatient (BNVA) | payer MEDICARE, SELFPAY | PROVIDERS: PCP Family Medicine; Visit Provider Physician Assistant | DX: Z96.652 Presence of left artificial knee joint (principal) | CPT/HCPCS: 73560; 73565; 99024 ==

== ENCOUNTER 2023-10-16 13:21 | Oncology outpatient (recurring) (ONCR) | payer MEDICARE, SELFPAY ==
[2023-10-16 14:38] LABS: Basophils % 0.8 %; Eosinophils # 0.1 10^3/uL (0.0-0.8); Eosinophils % 2.7 %; Hematocrit 35.8 % (36-47); Lymphocytes # 1.5 10^3/uL (0.8-4.8); Lymphocytes % 39.7 %; Mean Corpuscular HGB Conc 31.8 g/dL (30-55); Mean Corpuscular Hemoglobin 30.1 pg (27-33); Mean Corpuscular Volume 94.5 fl (85-98); Mean Platelet Volume 10.3 fL (7.4-10.4); Monocytes # 0.2 10^3/uL (0.2-0.9); Monocytes % 5.9 %; Neutrophils % 50.9 %; Nucleated Red Blood Cells % 0 %; Platelet Count 138 10^3/cmm (157-399); Red Blood Count 3.79 10^6/uL (3.85-5.65); Red Cell Distribution Width 14.7 % (12.1-15.1); White Blood Count 3.73 10^3/uL (3.29-11.43)
[2023-10-16 14:41] LABS: Erythrocyte Sedimentation Rate 22 mm/hr (0-15)
[2023-10-16 14:57] LABS: Ferritin 42 ng/mL (15-150)
[2023-10-16 15:07] LABS: Alanine Aminotransferase 29 U/L (0-33); Albumin Level 3.7 g/dL (3.5-5.2); Alkaline Phosphatase 181 U/L (35-105); Aspartate Amino Transferase 56 U/L (0-32); Blood Urea Nitrogen 16 mg/dL (8-23); C Reactive Protein 4.2 mg/L (0.0-4.9); Calcium 9.2 mg/dL (8.5-10.5); Carbon Dioxide 25 mmol/L (22-29); Chloride 105 mmol/L (98-107); Globulin 3.8 g/dL (1.3-4.6); Glomerular Filtration Rate 100.3 mL/min (90-130); Glucose 141 mg/dL (65-115); Osmolality Calculated 294 mOsm/kg (285-295); Sodium 140 mmol/L (136-145); Total Bilirubin 0.8 mg/dL (0.15-1.2); Total Protein 7.5 g/dL (6.6-8.7)
[2023-10-16 15:18] LABS: Estmated Average Glucose 131; Hemoglobin A1C 6.2 % (4.0-6.0)
[2023-10-16 15:36] LABS: Anion Gap 14.2 (5-19); Potassium 4.2 mmol/L (3.5-5.1)
[2023-10-16 15:42] LABS: Iron 64 ug/dL (37-145); Total Iron Binding Capacity 319 mcg/dl; Unsaturated Iron Binding 255 ug/dL (112-347); Vitamin B12 1000 pg/mL (232-1245)
== END 2023-10-27 23:59 | disposition home or self-care (01) ==
LOC: ONCMED 13:22
PROVIDERS: PCP Family Medicine; Visit Provider Internal Medicine Medical Oncology
DX: Z17.0 Estrogen receptor positive status [ER+]; Z90.11 Acquired absence of right breast and nipple; R73.9 Hyperglycemia, unspecified; Z79.818 Long term (current) use of other agents affecting estrogen receptors and estrogen levels; Z79.899 Other long term (current) drug therapy; M17.12 Unilateral primary osteoarthritis, left knee; D70.9 Neutropenia, unspecified; I10 Essential (primary) hypertension; E03.9 Hypothyroidism, unspecified; C50.111 Malignant neoplasm of central portion of right female breast
CPT/HCPCS: 36415; 80053; 82607; 82728; 83036; 83540; 83550; 84443; 85025; 85651; 86140; 99214

== ENCOUNTER 2023-12-13 08:22 | Oncology outpatient (recurring) (ONCR) | payer MEDICARE, SELFPAY ==
[2023-12-13 09:18] LABS: Basophils % 1.1 %; Eosinophils # 0.1 10^3/uL (0.0-0.8); Eosinophils % 2.9 %; Hematocrit 31.6 % (36-47); Lymphocytes # 1.3 10^3/uL (0.8-4.8); Lymphocytes % 47.9 %; Mean Corpuscular HGB Conc 32.9 g/dL (30-55); Mean Corpuscular Hemoglobin 30.1 pg (27-33); Mean Corpuscular Volume 91.3 fl (85-98); Mean Platelet Volume 10.1 fL (7.4-10.4); Monocytes # 0.2 10^3/uL (0.2-0.9); Monocytes % 7.5 %; Neutrophils # 1.14 10^3/uL (1.8-7.7); Neutrophils % 40.6 %; Nucleated Red Blood Cells % 0 %; Platelet Count 104 10^3/cmm (157-399); Red Blood Count 3.46 10^6/uL (3.85-5.65); Red Cell Distribution Width 14.7 % (12.1-15.1)
[2023-12-13 09:46] LABS: Alanine Aminotransferase 27 U/L (0-33); Albumin Level 3.5 g/dL (3.5-5.2); Alkaline Phosphatase 149 U/L (35-105); Anion Gap 14.3 (5-19); Aspartate Amino Transferase 44 U/L (0-32); Blood Urea Nitrogen 16 mg/dL (8-23); Calcium 9.4 mg/dL (8.5-10.5); Carbon Dioxide 24 mmol/L (22-29); Chloride 102 mmol/L (98-107); Ferritin 31 ng/mL (15-150); Globulin 3.3 g/dL (1.3-4.6); Glomerular Filtration Rate 83.7 mL/min (90-130); Glucose 127 mg/dL (65-115); Iron 64 ug/dL (37-145); Osmolality Calculated 285 mOsm/kg (285-295); Percent Saturation 20.3 % (20-50); Potassium 4.3 mmol/L (3.5-5.1); Sodium 136 mmol/L (136-145); Thyroid Stimulating Hormone 0.01 uIU/mL (0.27-4.20); Total Bilirubin 0.6 mg/dL (0.15-1.2); Total Iron Binding Capacity 314 mcg/dl; Total Protein 6.8 g/dL (6.6-8.7); Unsaturated Iron Binding 250 ug/dL (112-347)
--- NOTE | 2023-12-13 10:56 | ECG_ITS ---
[facility] Test Date: 2023-12-13 Pat Name: Maria Maxwell Department: Room: Gender: Female Digital Media Director: : 1955 Requested By: Yaritza Roblero Order Number: [id number] Aries MD: Sohan Nixon M.D. Measurements Intervals [place] Rate: 72 P: 44 [place]: 158 QRS: 55 QRSD: 98 T: 48 QT: 396 QTc: 434 Interpretive Statements SINUS RHYTHM Compared to ECG 07/30/2023 14:11:19 Ventricular premature complex(es) no longer present T-wave abnormality no longer present Electronically Signed On 12-13-2023 13:32:18 CDT by Sohan Nixon M.D. [id number]
[2023-12-13 11:13] LABS: Free T4 Free Thyroxine 2.62 ng/dL (0.82-1.77)
== END 2023-12-28 23:59 | disposition home or self-care (01) ==
PROVIDERS: Nurse Practitioner Family; PCP Family Medicine; Visit Provider Internal Medicine Medical Oncology
DX: C50.811 Malignant neoplasm of overlapping sites of right female breast (principal); R07.9 Chest pain, unspecified; D64.9 Anemia, unspecified; K92.1 Melena; E78.2 Mixed hyperlipidemia; E03.9 Hypothyroidism, unspecified; Z17.0 Estrogen receptor positive status [ER+]; Z90.11 Acquired absence of right breast and nipple; R06.02 Shortness of breath; D61.818 Other pancytopenia; M54.9 Dorsalgia, unspecified; G89.29 Other chronic pain; Z79.891 Long term (current) use of opiate analgesic; M79.2 Neuralgia and neuritis, unspecified
CPT/HCPCS: 36415; 80053; 82728; 83540; 83550; 84439; 84443; 85025; 93005; 99214

== ENCOUNTER → 2024-01-20 10:57 | Outpatient (BNVA) | payer MEDICARE, SELFPAY | PROVIDERS: PCP Family Medicine; Visit Provider Family Medicine | DX: E03.9 Hypothyroidism, unspecified (principal) | CPT/HCPCS: 84439; 84443 ==

== ENCOUNTER → 2024-02-07 10:15 | Outpatient (BNVA) | payer MEDICARE, SELFPAY | PROVIDERS: PCP Family Medicine; Visit Provider Student in an Organized Health Care Education/Training Program | DX: Z96.652 Presence of left artificial knee joint (principal) | CPT/HCPCS: 73560; 73565; 99213 ==

== ENCOUNTER 2024-03-12 12:23 | Oncology outpatient (recurring) (ONCR) | payer MEDICARE, SELFPAY ==
[2024-03-12 12:53] LABS: Basophils % 0.7 %; Eosinophils # 0.1 10^3/uL (0.0-0.8); Eosinophils % 2.9 %; Hematocrit 32.1 % (36-47); Lymphocytes # 0.9 10^3/uL (0.8-4.8); Lymphocytes % 33.8 %; Mean Corpuscular HGB Conc 31.8 g/dL (30-55); Mean Corpuscular Hemoglobin 28.3 pg (27-33); Mean Corpuscular Volume 89.2 fl (85-98); Mean Platelet Volume 10.7 fL (7.4-10.4); Monocytes # 0.1 10^3/uL (0.2-0.9); Monocytes % 5.1 %; Neutrophils # 1.55 10^3/uL (1.8-7.7); Neutrophils % 57.1 %; Nucleated Red Blood Cells % 0 %; Platelet Count 97 10^3/cmm (157-399); Red Cell Distribution Width 14.8 % (12.1-15.1); White Blood Count 2.72 10^3/uL (3.29-11.43)
[2024-03-12 13:21] LABS: Alanine Aminotransferase 16 U/L (0-33); Albumin Level 3.3 g/dL (3.5-5.2); Alkaline Phosphatase 159 U/L (35-105); Aspartate Amino Transferase 42 U/L (0-32); Blood Urea Nitrogen 10 mg/dL (8-23); Calcium 8.1 mg/dL (8.5-10.5); Carbon Dioxide 24 mmol/L (22-29); Chloride 105 mmol/L (98-107); Creatinine Clr Calc Pharmacy 78.2625; Ferritin 24 ng/mL (15-150); Globulin 3.4 g/dL (1.3-4.6); Glomerular Filtration Rate 123.4 mL/min (90-130); Glucose 183 mg/dL (65-115); Iron 54 ug/dL (37-145); Osmolality Calculated 292 mOsm/kg (285-295); Percent Saturation 17.1 % (20-50); Sodium 139 mmol/L (136-145); Thyroid Stimulating Hormone 0.67 uIU/mL (0.27-4.20); Total Bilirubin 0.6 mg/dL (0.15-1.2); Total Iron Binding Capacity 315 mcg/dl; Total Protein 6.7 g/dL (6.6-8.7); Unsaturated Iron Binding 261 ug/dL (112-347)
[2024-03-12 13:24] LABS: Anion Gap 13.5 (5-19); Potassium 3.5 mmol/L (3.5-5.1)
[2024-03-12 19:07] LABS: Reticulocyte % 1.3 % (0.5-2.0)
[2024-03-12 19:16] LABS: LAB Peripheral Smear Sent for Review
[2024-03-12 19:27] LABS: Vitamin B12 933 pg/mL (232-1245)
== END 2024-03-28 23:59 | disposition home or self-care (01) ==
PROVIDERS: Nurse Practitioner Family; PCP Family Medicine; Visit Provider Internal Medicine Medical Oncology
DX: C50.811 Malignant neoplasm of overlapping sites of right female breast (principal); E03.9 Hypothyroidism, unspecified; D64.9 Anemia, unspecified; D61.818 Other pancytopenia; R07.9 Chest pain, unspecified; M79.2 Neuralgia and neuritis, unspecified; E05.90 Thyrotoxicosis, unspecified without thyrotoxic crisis or storm; R94.6 Abnormal results of thyroid function studies; Z87.891 Personal history of nicotine dependence; Z90.11 Acquired absence of right breast and nipple; Z17.0 Estrogen receptor positive status [ER+]; Z79.899 Other long term (current) drug therapy; Z92.23 Personal history of estrogen therapy
CPT/HCPCS: 36415; 80053; 80503; 82607; 82728; 83010; 83540; 83550; 84443; 85025; 85045; 99214

== ENCOUNTER → 2024-03-19 09:20 | Outpatient (BNVA) | payer MEDICARE, SELFPAY | PROVIDERS: PCP Family Medicine; Visit Provider Student in an Organized Health Care Education/Training Program | DX: K42.9 Umbilical hernia without obstruction or gangrene (principal) | CPT/HCPCS: 99204; 99214 ==

== ENCOUNTER → 2024-04-06 12:50 | Outpatient (BNVA) | payer MEDICARE, SELFPAY | PROVIDERS: PCP Family Medicine; Visit Provider Internal Medicine Cardiovascular Disease | DX: R07.9 Chest pain, unspecified (principal) | CPT/HCPCS: 93005 ==

== ENCOUNTER 2024-04-15 08:32 | Outpatient (CLI) | payer MEDICARE, SELFPAY ==
--- NOTE | 2024-04-15 09:00 | MM_ITS ---
WS: [id number] Left breast diagnostic 3D tomosynthesis digital mammogram, Clinical Data: surveillance Comparison: 04/12/2023, 04/20/2022, 09/18/2021, 03/13/2016, 07/22/2014, 04/18/2006. Findings: No spiculated masses nor clustered calcifications are seen. There is inversion of the left nipple whi ch has been seen before. There are postoperative changes of the right breast unchanged. MM/MM diag LT tomosynthesis [id number] Impression: 1. Negative left breast mammogram. 2. No changes in the right breast. 3. Recommend annual left breast mammogram. DENSITY: There are scattered areas of fibroglandular density. BIRADS: 2 - Benign. FOLLOW UP: 1 Year Follow-up The CAD checkering machine adjuster was used.
== END 2024-04-15 08:33 | disposition home or self-care (01) ==
LOC: RAD 08:33
PROVIDERS: PCP Family Medicine; Visit Provider Nurse Practitioner Family
DX: C50.111 Malignant neoplasm of central portion of right female breast (principal); R92.322 Mammographic fibroglandular density, left breast; N64.59 Other signs and symptoms in breast; Z98.890 Other specified postprocedural states
CPT/HCPCS: 77061; G0279

== ENCOUNTER 2024-04-23 09:05 | Outpatient (CLI) | payer MEDICARE, SELFPAY ==
[2024-04-23 10:06] VITALS: BP 122/65; PULSE 76; BMI 27.4
--- NOTE | 2024-04-23 10:07 | ECG_ITS ---
[facility] Test Date: 2024-04-23 Pat Name: Maria Maxwell Department: Room: Gender: Female Staff Accountant: : 1955 Requested By: Maritza Fuentes Order Number: [id number] Aries MD: Sohan Nixon M.D. Interpretive Statements LEXISCAN: Procedure: At the baseline, the blood pressure was 146/72mmHg with a heart rate of 66 bpm. The electrocardiogram showed normal sinus rhythm, normal axis with normal ST and T's. The Lexiscan was infused over a period of 20 seconds. A total of 0.4 mg of Lexiscan was infused. The stress phase was continued for a total of 5 minutes. Heart rate was at the end of stress phase was 74 bpm and a blood pressure of 130/67 mmHg. The EKG at the peak infusion revealed normal sinus rhythm with no significant ST-T wave changes. Sestamibi was injected 20 seconds after the Lexiscan infusion. Blood pressure at the end of recovery phase was 122/65 mmHg with a heart rate of 76bpm. Conclusion: 1. Normal EKG response to Lexiscan infusion 2. No Lexiscan induced chest pain or cardiac arrhythmia. 3. Normal blood pressure and heart rate response. 4. Sestamibi/sestamibi perfusion scan pending; see separate report. Electronically Signed On 04-26-2024 20:39:55 BOARD OF EDUCATION SECRETARY by Sohan Nixon M.D. [email or web address]
--- NOTE | 2024-04-23 10:08 | NMCV_ITS ---
NM carroll perf SPECT r/s* [id number] Maria Maxwell Age: 68 Gender: F : 1955 Exam Date: 04/23/2024 10:20 Ordering Phys: Maritza Fuentes MD ([email or web address]) Technologist: KRIS Banerjee Exam Location: [facility] Indications: cp STRESS TEST Please see separate stress test report [facility] for full findings IMAGE PROTOCOL Rest/Stress 1 Lexiscan Day Radiopharmaceutical Dose (mCi) Administration Site Administered by Rest: Tc-99m 11 IV KIRS Banerjee Sestamibi Stress:Tc-99m 33 IV Sestamibi Rest: 23-Apr-2024 60 Discovery 630 Stress: 23-Apr-2024 30 Discovery 630 0.4mg Lexiscan. Images obtained in supine and prone position. SPECT RESULTS Technical Quality: Good Raw Data Analysis: Normal Image Corrections: No attenuation or motion correction applied Summed Stress Score: 0 Summed Rest Score: 4 Summed Difference Score: 0 PERFUSION FINDINGS There is reduced radiotracer uptake in the inferior wall on resting images that resolves on stress imaging. This is consistent with attenuation artifact. No evidence of ischemia. FUNCTIONAL RESULTS (calculated via Gated SPECT) Stress Image LV EF (%): 79 Stress EDV (mL):86 TID: 0.98 Stress ESV (mL):18 FUNCTIONAL FINDINGS: There is normal left ventricular systolic function. IMPRESSIONS 1. Attenuation artifact seen in inferior wall. No evidence of ischemia 2. LV systolic function is normal Sohan Nixon MD (Electronically Signed) Final Date: 23 April 2024 20:08 S
[2024-04-23] MEDS: regadenoson 0.4 Mg/5 ml Syringe IVP (11:04)
== END 2024-04-23 09:06 | disposition home or self-care (01) ==
PROVIDERS: PCP Family Medicine; Visit Provider Internal Medicine Cardiovascular Disease
DX: R07.9 Chest pain, unspecified (principal); R06.02 Shortness of breath
CPT/HCPCS: 36415; 78452; 93017; 96374; A9500; J2785

== ENCOUNTER 2024-05-06 09:53 | Day surgery (SDC) | payer MEDICARE, SELFPAY ==
[2024-05-06] VITALS (11 sets, daily range): BP systolic 121–141; BP diastolic 60–80; PULSE 65–100; RESP 16–18; TEMP 36.3–36.7; O2SAT 90–95; BMI 30.9
--- NOTE | 2024-05-06 10:35 | P.ANESASSM_ITS ---
Pre-Anesthetic Assessment Height/Weight: Height 1.5 m Weight 69.4 kg Temp Pulse Resp BP Pulse Ox O2 Del Method 98.1 F 66 18 141/77 95 Room Air 05/06/24 10:11 05/06/24 10:11 05/06/24 10:11 05/06/24 10:11 05/06/24 10:11 05/06/24 10:23 Operation Date: 05/06/24 11:25 Proposed Procedures p Open Umbilical Hernia Repair w/ Mesh 15446, K42.9(Not Applicable) - Ismael Pavon MD Familial anesthetic complications: none Was Beta Christopher taken within 24 hours: N/A Was Clonidine taken within 24 hours: N/A Last intake: Intake Last Liquid Date 05/05/24 Last Liquid Time 21:00 Last Solid Date 05/05/24 Last Solid Time 21:00 Social No alcohol and No tobacco Exam alert, oriented x 3, clear to auscultation bilaterally and regular rate & rhythm Airway Submandibular: within normal limits Cervical ROM: within normal limits Mallampati: Class II Dentition: false Pulmonary Sleep Apnea CV/HEM Anemia, Hypertension and Peripheral Vascular Disease Recent chest pains, now resolved, unremarkable stress/perfusion studies GI Gastroesophageal Reflux Disease Metabolic Diabetes Mellitus and Thyroid Disease Neuropsych Anxiety and Depression Anesthetic Plan ASA status: 3 Anesthesia: General Medications/Allergies Home Medications Medication Instructions Recorded Confirmed Last Taken Type isosorbide mononitrate 30 mg See Rx Instructions .Route 05/17/23 05/06/24 05/05/24 Rx tablet,extended release 24 hr .COMPLEX #135 tabs metformin 500 mg tablet 500 mg PO BID 08/05/23 05/06/24 05/05/24 History ketoconazole 2 % topical cream See Rx Instructions .Route .COMPLEX 08/06/23 05/06/24 Unknown History naproxen sodium 220 mg tablet 220 mg PO BID PRN Pain 08/06/23 05/06/24 05/04/24 History (Aleve) pantoprazole 40 mg tablet,delayed 40 mg PO QAM for stomach 90 days 08/23/23 05/06/24 05/05/24 Rx release (Protonix) #90 tabs oxycodone 10 mg tablet 10 mg PO Q4H PRN Pain, Severe 03/12/24 05/06/24 05/05/24 History nitroglycerin 0.4 mg sublingual 0.4 mg sublingual Q5M PRN Chest 04/06/24 05/06/24 05/05/24 Rx tablet (Nitrostat) Pain #25 tabs levothyroxine 50 mcg tablet 50 mcg PO DAILY thyroid #90 tabs 04/13/24 05/06/24 05/05/24 Rx escitalopram oxalate 20 mg tablet 20 mg PO DAILY mood #90 tabs 05/04/24 05/06/24 05/05/24 Rx alprazolam 1 mg tablet 1 mg PO QID PRN anxiety 05/06/24 05/06/24 05/05/24 History diclofenac sodium 1 % topical gel 2 - 4 g topical TID PRN Pain 05/06/24 05/06/24 05/03/24 History Allergies Allergy/AdvReac Type Severity Reaction Status Date / Time doxycycline Allergy Mild vomiting Verified 04/23/24 10:07 gabapentin [From Neurontin] Allergy Mild not Verified 04/23/24 10:07 effective fluoxetine [From Prozac] Allergy ADR-Nausea Verified 04/23/24 10:07 lovastatin Allergy Unknown Verified 04/23/24 10:07 [facility] Anesthesia Medical History Chest pain Anemia History of colonic polyps Tubular adenoma FRED (obstructive sleep apnea) Tubular adenoma Gastritis Diverticulitis Breast cancer, right breast Prediabetes Anxiety DJD (degenerative joint disease) PAD (peripheral artery disease) Hypothyroidism Surgical History History of right mastectomy (11/15/21) Right mastectomy with axillary sentinel lymph node biopsy S/P knee surgery History of esophagogastroduodenoscopy (EGD) 10 + years ago Hx of colonoscopy 10 + years ago Hx laparoscopic cholecystectomy Hx of hysterectomy S/P foot surgery, left Family History Mother Diabetes Hypertension Stroke Sister Cancer Dementia Brother Cancer Social History Smoking and tobacco/nicotine status: former use of tobacco/nicotine Alcohol intake: never Substance/Drug Use: never Data Anesthesia Cardiac Studies: Sestamibi Stress Test (Cardiology) 04/23
[2024-05-06] MEDS: sodium chloride 0.9% 1,000 ML 30 ML IV (10:51)
[2024-05-06 10:56] LABS: Glucose Point of Care 102 mg/dL (70-110)
--- NOTE | 2024-05-06 11:10 | W.PM.OPSFHP ---
Same Day Surgery H&P Indication for Procedure/HPI DATE OF PROCEDURE: May 06, 2024 CHIEF COMPLAINT/INDICATIONFOR SURGICAL PROCEDURE: symptomatic umbilical hernia PREOP DIAGNOSIS: symptomatic umbilical hernia PLANNED PROCEDURE: Operation Date: 05/06/24 11:25 Proposed Procedures p Open Umbilical Hernia Repair w/ Mesh [id number], K42.9(Not Applicable) - Ismael Pavon MD Medications/Allergies* Home Medications Medication Instructions Recorded Confirmed Type metformin 500 mg tablet 500 mg PO BID 08/05/23 05/06/24 History ketoconazole 2 % topical cream See Rx Instructions .Route .COMPLEX 08/06/23 05/06/24 History naproxen sodium 220 mg tablet 220 mg PO BID PRN Pain 08/06/23 05/06/24 History (Aleve) oxycodone 10 mg tablet 10 mg PO Q4H PRN Pain, Severe 03/12/24 05/06/24 History alprazolam 1 mg tablet 1 mg PO QID PRN anxiety 05/06/24 05/06/24 History diclofenac sodium 1 % topical gel 2 - 4 g topical TID PRN Pain 05/06/24 05/06/24 History Allergies/Adverse Reactions Allergy/AdvReac Type Severity Reaction Status Date / Time doxycycline Allergy Mild vomiting Verified 04/23/24 10:07 gabapentin [From Neurontin] Allergy Mild not Verified 04/23/24 10:07 effective fluoxetine [From Prozac] Allergy ADR-Nausea Verified 04/23/24 10:07 lovastatin Allergy Unknown Verified 04/23/24 10:07 Current Medications: Generic Name Dose Route Start Last Admin Trade Name Freq PRN Reason Stop Dose Admin Sodium Chloride 1,000 mls @ 30 mls/hr 05/06/24 10:00 05/06/24 10:51 Sodium Chloride 0.9% IV 05/07/24 09:59 30 mls/hr .Q24H ELIZA Administration Pertinent History/Comorbid Conditions* Medical History (Updated 03/16/24 @ 15:45 by Yaritza Roblero APRN) Chest pain Anemia History of colonic polyps Tubular adenoma FRED (obstructive sleep apnea) Tubular adenoma Gastritis Diverticulitis Breast cancer, right breast Prediabetes Anxiety DJD (degenerative joint disease) PAD (peripheral artery disease) Hypothyroidism Surgical History (Updated 08/27/23 @ 11:03 by JEFFY Coulter) History of right mastectomy (11/15/21) Right mastectomy with axillary sentinel lymph node biopsy S/P knee surgery History of esophagogastroduodenoscopy (EGD) 10 + years ago Hx of colonoscopy 10 + years ago Hx laparoscopic cholecystectomy Hx of hysterectomy S/P foot surgery, left Family History (Updated 06/04/19 @ 11:06 by Tiny Varma RN) Diabetes Mother Dementia Sister Cancer Sister Brother Hypertension Mother Stroke Mother Social History Smoking and tobacco/nicotine status: former use of tobacco/nicotine Alcohol intake: never Substance/Drug Use: never Pertinent Exam Findings alert, oriented x 3, clear to auscultation bilaterally, regular rate & rhythm and procedure specific exam findings Abdomen soft, nt, nd. Recommendations Surgery/Procedure today Other Plans: Proceeding with umbilical hernia repair with mesh. Coding Level of Care Code Acute Code for Chg Fwd Time Spent (min) 30
[2024-05-06] MEDS: ceFAZolin 2,000 mg SDV 2000 MG IVP (11:20)
--- NOTE | 2024-05-06 11:51 | P.OP_ITS ---
Operative Report Date of procedure: May 06, 2024 Pre-op diagnosis: symptomatic umbilical hernia Post-op diagnosis: same Post-op findings: Umbilical hernia 2cm fascial defect. Dissected hernia sac back into abdomen. Repair done #1 duramesh. Procedure done: Umilical hernia repair with mesh Implants: Duramesh #1 Specimens removed/disposition: NA Pathology: none sent Surgeon: Ismael Pavon MD [employer] Professor: JOHN Anesthesia: MAC Estimated blood loss (mL): 5 Complications: NA Findings: Umbilical hernia 2cm fascial defect. Condition: stable Disposition: same day Brief History: 68-year-old female who presented with a symptomatic umbilical hernia. Discussed risk and benefits and patient agreed to proceed with umbilical hernia repair. Procedure: Patient was brought into the operating room table. She was laid supine. General anesthesia was induced. SCDs were working. Preoperative Ancef was administered. The abdomen was prepped and draped in the usual sterile fashion. A curvilinear incision was carried out at the umbilicus. Hernia sac was d issected off bluntly. Hernia sac was reduced into the abdominal cavity. I inspected the fascial defect and measured 2 cm. I proceeded to close the fascial defect using interrupted #1 dura mesh. I then closed the subcutaneous tissues in multiple layers using 3-0 Ethibond. Skin was closed using 4-0 Monocryl and glue. Skin was infiltrated using 1% lidocaine with epi 10 cc. A compression dressing was applied to the umbilicus. The patient woke up from anesthesia without any complications.
[2024-05-06] MEDS: lidocaine-epi 1% PF 1:200,000 30 mL SDV INJECTION (11:53)
--- NOTE | 2024-05-06 13:30 | ANE.PACU2 ---
Inpatient post-anesthesia follow up: Airway intact: Yes Vital signs: Temperature 97.3 F Pulse Rate 77 Respiratory Rate 16 Blood Pressure 129/65 Pulse Oximetry 95 Oxygen Delivery Me thod Room Air Oxygen Flow Rate 3 Fraction of Inspir ed Oxygen Hydration adequate: Yes Nausea and vomiting: No Pain level: 3 Mental status: Baseline
== END 2024-05-06 13:50 | disposition home or self-care (01) ==
PROVIDERS: PCP Family Medicine; Visit Provider Student in an Organized Health Care Education/Training Program
PROC: (CPT 49505; principal; 2024-05-06 11:15)
DX: K42.9 Umbilical hernia without obstruction or gangrene (principal); Z86.0100 Personal history of colon polyps, unspecified; G47.33 Obstructive sleep apnea (adult) (pediatric); Z85.820 Personal history of malignant melanoma of skin; F41.9 Anxiety disorder, unspecified; E03.9 Hypothyroidism, unspecified; Z87.891 Personal history of nicotine dependence; I10 Essential (primary) hypertension; K21.9 Gastro-esophageal reflux disease without esophagitis; E11.9 Type 2 diabetes mellitus without complications; Z79.84 Long term (current) use of oral hypoglycemic drugs
CPT/HCPCS: 49505; 36416; 82962; C1713; J0690; J1100; J2371; J2405; J2704; J2710; J3010; J3490; J7030; P9045

== ENCOUNTER → 2024-05-18 11:15 | Outpatient (BNVA) | payer MEDICARE, SELFPAY | PROVIDERS: PCP Family Medicine; Visit Provider Student in an Organized Health Care Education/Training Program | DX: Z98.890 Other specified postprocedural states (principal) | CPT/HCPCS: 99024 ==

== ENCOUNTER → 2024-06-08 14:09 | Outpatient (BNVA) | payer MEDICARE, SELFPAY | PROVIDERS: PCP Family Medicine; Visit Provider Student in an Organized Health Care Education/Training Program | DX: Z98.890 Other specified postprocedural states (principal); Z87.19 Personal history of other diseases of the digestive system | CPT/HCPCS: 99024 ==

== ENCOUNTER 2024-06-11 13:20 | Oncology outpatient (recurring) (ONCR) | payer MEDICARE, SELFPAY ==
[2024-06-11 16:03] LABS: Eosinophils # 0.1 10^3/uL (0.0-0.8); Eosinophils % 2.3 %; Hematocrit 30.4 % (36-47); Lymphocytes # 0.9 10^3/uL (0.8-4.8); Lymphocytes % 28.7 %; Mean Corpuscular HGB Conc 32.6 g/dL (30-55); Mean Corpuscular Hemoglobin 30.3 pg (27-33); Monocytes # 0.2 10^3/uL (0.2-0.9); Monocytes % 7.7 %; Neutrophils # 1.86 10^3/uL (1.8-7.7); Nucleated Red Blood Cells % 0 %; Platelet Count 91 10^3/cmm (157-399); Red Blood Count 3.27 10^6/uL (3.85-5.65); Red Cell Distribution Width 15.3 % (12.1-15.1)
[2024-06-11 16:24] LABS: Erythrocyte Sedimentation Rate 26 mm/hr (0-15)
[2024-06-11 16:32] LABS: Alanine Aminotransferase 20 U/L (0-33); Albumin Level 3.5 g/dL (3.5-5.2); Alkaline Phosphatase 199 U/L (35-105); Aspartate Amino Transferase 41 U/L (0-32); Blood Urea Nitrogen 17 mg/dL (8-23); C Reactive Protein 3.6 mg/L (0.0-4.9); Calcium 8.5 mg/dL (8.5-10.5); Carbon Dioxide 25 mmol/L (22-29); Chloride 103 mmol/L (98-107); Creatinine Clr Calc Pharmacy 68.3334; Ferritin 20 ng/mL (15-150); Globulin 3.2 g/dL (1.3-4.6); Glomerular Filtration Rate 83.7 mL/min (90-130); Glucose 186 mg/dL (65-115); Iron 42 ug/dL (37-145); Osmolality Calculated 286 mOsm/kg (285-295); Percent Saturation 12.3 % (20-50); Sodium 135 mmol/L (136-145); Total Bilirubin 0.5 mg/dL (0.15-1.2); Total Iron Binding Capacity 339 mcg/dl; Total Protein 6.7 g/dL (6.6-8.7); Unsaturated Iron Binding 297 ug/dL (112-347)
[2024-06-11 16:34] LABS: Anion Gap 11.6 (5-19); Potassium 4.6 mmol/L (3.5-5.1)
[2024-06-11 16:47] LABS: Vitamin B12 891 pg/mL (232-1245)
[2024-06-11 16:59] LABS: Lactate Dehydrogenase 212 U/L (135-214)
[2024-06-11 17:42] LABS: Folate Level 16.8 ng/mL (4.8-37.3)
[2024-06-11 18:03] LABS: Reticulocyte % 1.9 % (0.5-2.0)
== END 2024-06-26 23:59 | disposition home or self-care (01) ==
PROVIDERS: PCP Family Medicine; Visit Provider Internal Medicine
DX: Z08 Encounter for follow-up examination after completed treatment for malignant neoplasm (principal); Z85.3 Personal history of malignant neoplasm of breast; D61.818 Other pancytopenia; R07.9 Chest pain, unspecified; E05.90 Thyrotoxicosis, unspecified without thyrotoxic crisis or storm; R94.6 Abnormal results of thyroid function studies; K92.1 Melena; D50.9 Iron deficiency anemia, unspecified; M79.2 Neuralgia and neuritis, unspecified; M79.629 Pain in unspecified upper arm; Z90.11 Acquired absence of right breast and nipple; Z92.23 Personal history of estrogen therapy; Z87.891 Personal history of nicotine dependence; Z96.642 Presence of left artificial hip joint
CPT/HCPCS: 36415; 80053; 82607; 82728; 82746; 83010; 83540; 83550; 83615; 85025; 85045; 85651; 86140; 86880; 99213

== ENCOUNTER 2024-07-15 08:45 | Oncology outpatient (recurring) (ONCR) | payer MEDICARE, SELFPAY ==
--- NOTE | 2024-07-15 08:45 | US_ITS ---
WS: [id number] Complete ABDOMINAL ULTRASOUND HISTORY: distended abdomen COMPARISON: 06/20/2022 Liver: 13.2 cm in length. Liver is measuring normal size on today's ultrasound. Continued coarse echotexture and slightly lobulated surface of the liver. No intrahepatic dilatation or mass. Portal Vein: Normal hepatopetal flow with monophasic waveform. Gallbladder: Prior cholecystectomy. CBD: 0.4 cm Pancreas: Poorly visualized due to bowel gas. Right kidney: 10.4 cm x 3.8 x 3.7 cm. Cortex:1.0 cm. Normal size and echogenicity. No hydronephrosis or mass. Left kidney: 10.8 cm x 4.3 cm x 3.9 cm. Cortex: 1.1 cm. Normal size and echogenicity. No hydronephrosis or mass. Spleen: 12.8 cm. Granulomata. Normal size. Aorta and IVC: Unremarkable abdominal aorta and IVC. US/US abdomen complete* [id number] Impression: 1. Prior cholecystectomy. 2. Normal size liver with coarse echotexture. Consider cirrhosis and hepatic s teatosis. Liver has decreased in size since 2022. 3. No renal obstruction.
== END 2024-07-27 23:59 | disposition home or self-care (01) ==
LOC: RAD 07-16 00:01 → ONCMED 07-20 09:35
PROVIDERS: PCP Family Medicine; Visit Provider Internal Medicine Medical Oncology
DX: Z08 Encounter for follow-up examination after completed treatment for malignant neoplasm (principal); Z85.3 Personal history of malignant neoplasm of breast; D61.818 Other pancytopenia; R07.9 Chest pain, unspecified; E05.90 Thyrotoxicosis, unspecified without thyrotoxic crisis or storm; R94.6 Abnormal results of thyroid function studies; K92.1 Melena; D50.9 Iron deficiency anemia, unspecified; M79.2 Neuralgia and neuritis, unspecified; M79.629 Pain in unspecified upper arm; Z90.11 Acquired absence of right breast and nipple; Z92.23 Personal history of estrogen therapy; Z87.891 Personal history of nicotine dependence; Z96.642 Presence of left artificial hip joint
CPT/HCPCS: 76700; 99214

== ENCOUNTER 2024-07-20 20:00 | Outpatient (CLI) | payer MEDICARE, SELFPAY | END 2024-07-20 20:01 | disposition home or self-care (01) | LOC: SLEEP 23:59 | PROVIDERS: PCP Family Medicine; Visit Provider Clinical Nurse Specialist Adult Health | DX: G47.33 Obstructive sleep apnea (adult) (pediatric) (principal); G47.36 Sleep related hypoventilation in conditions classified elsewhere | CPT/HCPCS: 95810 ==

== ENCOUNTER 2024-08-25 14:17 | Oncology outpatient (recurring) (ONCR) | payer MEDICARE, SELFPAY ==
[2024-08-04] MEDS: iron sucrose 200 MG in sodium chloride 0.9% (100 ml) 100 ML IV (14:57)
[2024-08-04 15:36] VITALS: BP 97/58; PULSE 68; RESP 18; TEMP 36.6; O2SAT 90
[2024-08-04 15:47] VITALS: BP 97/58; PULSE 67; RESP 17; TEMP 36.4; O2SAT 90
[2024-08-11] MEDS: iron sucrose 200 MG in sodium chloride 0.9% (100 ml) 100 ML IV (14:17)
[2024-08-11 15:37] VITALS: BP 120/65; PULSE 78; RESP 17; TEMP 36.8; O2SAT 91
[2024-08-18] MEDS: iron sucrose 200 MG in sodium chloride 0.9% (100 ml) 100 ML IV (14:48)
[2024-08-18 15:31] VITALS: BP 113/57; PULSE 76; RESP 16; TEMP 36.6; O2SAT 92
[2024-08-25] MEDS: iron sucrose 200 MG in sodium chloride 0.9% (100 ml) 100 ML IV (14:58)
[2024-08-25 15:40] VITALS: BP 127/63; PULSE 73; RESP 17; O2SAT 95
== END 2024-08-26 23:59 | disposition home or self-care (01) ==
PROVIDERS: PCP Family Medicine; Visit Provider Internal Medicine Medical Oncology
DX: Z08 Encounter for follow-up examination after completed treatment for malignant neoplasm (principal); Z85.3 Personal history of malignant neoplasm of breast; D61.818 Other pancytopenia; R07.9 Chest pain, unspecified; E05.90 Thyrotoxicosis, unspecified without thyrotoxic crisis or storm; R94.6 Abnormal results of thyroid function studies; K92.1 Melena; D50.9 Iron deficiency anemia, unspecified; M79.2 Neuralgia and neuritis, unspecified; M79.629 Pain in unspecified upper arm; Z90.11 Acquired absence of right breast and nipple; Z92.23 Personal history of estrogen therapy; Z87.891 Personal history of nicotine dependence; Z96.642 Presence of left artificial hip joint; R16.0 Hepatomegaly, not elsewhere classified; R14.0 Abdominal distension (gaseous); Z90.5 Acquired absence of kidney; R40.0 Somnolence
CPT/HCPCS: 96365; J1756

== ENCOUNTER 2024-09-10 09:43 | Oncology outpatient (recurring) (ONCR) | payer MEDICARE, SELFPAY ==
[2024-09-10 10:07] LABS: Reticulocyte % 1.6 % (0.5-2.0)
[2024-09-10 10:08] LABS: Basophils % 1.3 %; Eosinophils # 0.1 10^3/uL (0.0-0.8); Eosinophils % 5.5 %; Lymphocytes % 43.9 %; Mean Corpuscular HGB Conc 31.9 g/dL (30-55); Mean Corpuscular Hemoglobin 29.9 pg (27-33); Mean Corpuscular Volume 93.8 fl (85-98); Mean Platelet Volume 10.7 fL (7.4-10.4); Monocytes # 0.1 10^3/uL (0.2-0.9); Monocytes % 5.1 %; Neutrophils # 1.05 10^3/uL (1.8-7.7); Neutrophils % 44.2 %; Nucleated Red Blood Cells % 0 %; Platelet Count 82 10^3/cmm (157-399); Red Blood Count 3.84 10^6/uL (3.85-5.65); White Blood Count 2.37 10^3/uL (3.29-11.43)
[2024-09-10 10:14] LABS: Erythrocyte Sedimentation Rate 19 mm/hr (0-15)
[2024-09-10 10:47] LABS: Alanine Aminotransferase 21 U/L (0-33); Albumin Level 3.5 g/dL (3.5-5.2); Alkaline Phosphatase 151 U/L (35-105); Anion Gap 14.9 (5-19); Aspartate Amino Transferase 41 U/L (0-32); Blood Urea Nitrogen 16 mg/dL (8-23); Carbon Dioxide 24 mmol/L (22-29); Chloride 105 mmol/L (98-107); Ferritin 187 ng/mL (15-150); Globulin 3.2 g/dL (1.3-4.6); Glomerular Filtration Rate 83.7 mL/min (90-130); Glucose 94 mg/dL (65-115); Iron 70 ug/dL (37-145); Lactate Dehydrogenase 235 U/L (135-214); Osmolality Calculated 291 mOsm/kg (285-295); Percent Saturation 28.6 % (20-50); Potassium 3.9 mmol/L (3.5-5.1); Sodium 140 mmol/L (136-145); Total Bilirubin 0.7 mg/dL (0.15-1.2); Total Iron Binding Capacity 244 mcg/dl; Total Protein 6.7 g/dL (6.6-8.7); Unsaturated Iron Binding 174 ug/dL (112-347); Vitamin B12 892 pg/mL (232-1245)
[2024-09-10 10:49] LABS: Folate Level 19.2 ng/mL (4.8-37.3)
== END 2024-09-26 23:59 | disposition home or self-care (01) ==
PROVIDERS: Internal Medicine; PCP Family Medicine; Visit Provider Internal Medicine Medical Oncology
DX: Z08 Encounter for follow-up examination after completed treatment for malignant neoplasm (principal); Z90.11 Acquired absence of right breast and nipple; D61.818 Other pancytopenia; K74.60 Unspecified cirrhosis of liver; Z87.891 Personal history of nicotine dependence; Z85.3 Personal history of malignant neoplasm of breast; Z92.23 Personal history of estrogen therapy
CPT/HCPCS: 36415; 80053; 82607; 82728; 82746; 83010; 83540; 83550; 83615; 85025; 85045; 85651; 86140; 86880; 99214

== ENCOUNTER 2024-09-14 20:00 | Outpatient (CLI) | payer MEDICARE, SELFPAY | END 2024-09-14 20:01 | disposition home or self-care (01) | LOC: SLEEP 09-15 05:44 | PROVIDERS: PCP Family Medicine; Visit Provider Family Medicine | DX: G47.33 Obstructive sleep apnea (adult) (pediatric) (principal) | CPT/HCPCS: 95811 ==

== ENCOUNTER → 2024-10-05 15:42 | Outpatient (BNVA) | payer MEDICARE, SELFPAY | PROVIDERS: PCP Family Medicine; Visit Provider Internal Medicine Cardiovascular Disease | DX: R07.9 Chest pain, unspecified (principal); R06.02 Shortness of breath; R01.1 Cardiac murmur, unspecified; I51.89 Other ill-defined heart diseases; E78.2 Mixed hyperlipidemia | CPT/HCPCS: 99214 ==

== ENCOUNTER 2024-10-27 12:46 | Oncology outpatient (recurring) (ONCR) | payer MEDICARE, SELFPAY | END 2024-11-26 23:59 | disposition home or self-care (01) | LOC: RT 12:48 → ONCMED 10-28 08:24 | PROVIDERS: PCP Family Medicine; Visit Provider Internal Medicine Medical Oncology | DX: Z08 Encounter for follow-up examination after completed treatment for malignant neoplasm (principal); Z90.11 Acquired absence of right breast and nipple; D61.818 Other pancytopenia; K74.60 Unspecified cirrhosis of liver; Z87.891 Personal history of nicotine dependence; Z85.3 Personal history of malignant neoplasm of breast; Z92.23 Personal history of estrogen therapy; R01.1 Cardiac murmur, unspecified | CPT/HCPCS: 94010; 94726; 94729 ==

== ENCOUNTER → 2024-12-16 12:53 | Outpatient (BNVA) | payer MEDICARE, SELFPAY | PROVIDERS: PCP Family Medicine; Visit Provider Family Medicine | DX: F41.9 Anxiety disorder, unspecified (principal); E03.9 Hypothyroidism, unspecified; I10 Essential (primary) hypertension; E78.2 Mixed hyperlipidemia; I73.9 Peripheral vascular disease, unspecified; E11.9 Type 2 diabetes mellitus without complications; G47.33 Obstructive sleep apnea (adult) (pediatric) | CPT/HCPCS: 80053; 80061; 82607; 83036; 84443; 85025 ==

== ENCOUNTER 2025-01-05 20:16 | Outpatient (CLI) | payer MEDICARE, SELFPAY | END 2025-01-05 20:17 | disposition home or self-care (01) | LOC: SLEEP 20:17 | PROVIDERS: PCP Family Medicine; Referring Provider Family Medicine; Visit Provider Internal Medicine Pulmonary Disease | DX: G47.33 Obstructive sleep apnea (adult) (pediatric) (principal) | CPT/HCPCS: 95811 ==

== ENCOUNTER → 2025-01-18 09:11 | Outpatient (BNVA) | payer MEDICARE, SELFPAY | PROVIDERS: PCP Family Medicine; Visit Provider Student in an Organized Health Care Education/Training Program | DX: K74.60 Unspecified cirrhosis of liver (principal); Z98.890 Other specified postprocedural states; Z87.19 Personal history of other diseases of the digestive system | CPT/HCPCS: 99213 ==

== ENCOUNTER 2025-01-29 13:15 | Outpatient (CLI) | payer MEDICARE, SELFPAY ==
[2025-01-29] MEDS: iohexol 350 mg/mL 500 mL Btl (per mL) IV (14:02)
--- NOTE | 2025-01-29 14:15 | CT_ITS ---
WS: [id number] CT ABDOMEN AND PELVIS WITH CONTRAST HISTORY: prior hernia repair and cirrhosis TECHNIQUE: Imaging performed of the abdomen and pelvis with IV contrast. Single phase imaging of the abdomen. Coronal and sagittal reformats are submitted. All CT scans at [facility] use at least one of these dose optimization techniques: automated exposure control; mA and/or kV adjustment per patient size (includes targeted exams where dose is matched to clinical indication); or iterative reconstruction. IV CONTRAST: Omnipaque 350; 100 mL IV. Oral contrast: No DLP: 436.65 mGy.cm COMPARISON: 06/28/2023 Lower thorax: Lung bases are clear. Heart is normal size. Small hiatal hernia. Liver/biliary system: Normal size with no intrahepatic dilatation. Gallbladder: Prior cholecystectomy. Normal common bile duct. Pancreas: Normal size pancreas and pancreatic duct. No adjacent inflammation. Spleen: Normal size spleen. No mass or infarct. Adrenal glands: Normal. Right kidney: Normal. Left kidney: Normal. Aorta: Normal size aorta. Mild plaque in the SMA. Lymphadenopathy: None. Free fluid: None. GI tract: Stomach is mildly distended with fluid. No obstruction. No small bowel obstruction. No appendicitis. Mild diverticular disease in the descending and sigmoid colon. Sigmoid anastomosis is identified and intact. No recurrent mass or inflammation. No obstruction at the anastomotic site. Abdominal wall: Postsurgical changes along the abdominal wall. There is a small ventral abdominal wall hernia containing fat only just below the umbilicus and associated with the inferior surgical scar. Pelvis: No free fluid or adenopathy within the pelvis. There is a midline defect within the anterior wall of the pelvis which is just above the symphysis pubis. This defect contains fat but no GI tract. This defect has been present on prior studies. This defect does appear to be separate from the inguinal canals. There is a small LEFT inguinal hernia containing fat only. Small fat-containing inguinal hernia. Bones: Unremarkable. CT/CT abdomen pelvis w con* [id number] IMPRESSION: 1. No GI tract obstruction. 2. Prior cholecystectomy. 3. Sigmoid anastomosis intact with no complications or obstruction. 4. Infraumbilical fat-containing hernia associated with the inferior surgical incision. 5. Midline hernia within the pelvis just above the symphysis pubis contains fa t only. No interval change. 6. LEFT inguinal hernia containing fat only. There is probably also a very sma ll RIGHT inguinal hernia containing fat only.
== END 2025-01-29 13:16 | disposition home or self-care (01) ==
LOC: RAD 13:21
PROVIDERS: PCP Family Medicine; Visit Provider Student in an Organized Health Care Education/Training Program
DX: K74.60 Unspecified cirrhosis of liver (principal); Z98.890 Other specified postprocedural states; Z87.19 Personal history of other diseases of the digestive system; K44.9 Diaphragmatic hernia without obstruction or gangrene; Z90.49 Acquired absence of other specified parts of digestive tract; K57.30 Diverticulosis of large intestine without perforation or abscess without bleeding; K46.9 Unspecified abdominal hernia without obstruction or gangrene; K40.90 Unilateral inguinal hernia, without obstruction or gangrene, not specified as recurrent
CPT/HCPCS: 74177

== ENCOUNTER → 2025-03-01 09:12 | Outpatient (BNVA) | payer MEDICARE, SELFPAY | PROVIDERS: PCP Family Medicine; Visit Provider Student in an Organized Health Care Education/Training Program | DX: Z98.890 Other specified postprocedural states (principal); Z87.19 Personal history of other diseases of the digestive system | CPT/HCPCS: 99213 ==

== ENCOUNTER 2025-03-24 10:00 | Oncology outpatient (recurring) (ONCR) | payer MEDICARE, SELFPAY ==
[2025-03-10 11:46] LABS: Hematocrit 29.7 % (36-47); Hemoglobin 9.50 g/dL (11.27-16.99); Mean Corpuscular HGB Conc 32.0 g/dL (30-55); Mean Corpuscular Hemoglobin 28.6 pg (27-33); Mean Corpuscular Volume 89.5 fl (85-98); Nucleated Red Blood Cells % 0 %; Platelet Count 106 10^3/cmm (157-399); Red Blood Count 3.32 10^6/uL (3.85-5.65); White Blood Count 3.32 10^3/uL (3.29-11.43)
[2025-03-10 12:01] LABS: Alanine Aminotransferase 18 U/L (0-33); Albumin Level 3.5 g/dL (3.5-5.2); Alkaline Phosphatase 160 U/L (35-105); Anion Gap 15.4 (5-19); Aspartate Amino Transferase 38 U/L (0-32); Blood Urea Nitrogen 13 mg/dL (8-23); Calcium 9.1 mg/dL (8.5-10.5); Carbon Dioxide 22 mmol/L (22-29); Chloride 106 mmol/L (98-107); Ferritin 15 ng/mL (15-150); Globulin 3.7 g/dL (1.3-4.6); Glucose 189 mg/dL (65-115); Iron 42 ug/dL (37-145); Osmolality Calculated 293 mOsm/kg (285-295); Potassium 4.4 mmol/L (3.5-5.1); Sodium 139 mmol/L (136-145); Total Iron Binding Capacity 370 mcg/dl; Total Protein 7.2 g/dL (6.6-8.7); Unsaturated Iron Binding 328 ug/dL (112-347)
[2025-03-10 12:15] LABS: Vitamin B12 1035 pg/mL (232-1245)
[2025-03-24 10:36] VITALS: BP 101/60; PULSE 76; RESP 17; TEMP 36.4; O2SAT 97
[2025-03-24] MEDS: diphenhydrAMINE 50 mg/mL SDV 1mL 25 MG IVP (10:38)
[2025-03-24] MEDS: iron dextran 1,000 MG in sodium chloride 0.9% 1,000 ML 250.75 MG IV (12:11)
[2025-03-24 16:11] VITALS: BP 144/68; PULSE 70; RESP 17; TEMP 36.6; O2SAT 88
== END 2025-03-28 23:59 | disposition home or self-care (01) ==
PROVIDERS: PCP Family Medicine; Visit Provider Internal Medicine Medical Oncology
DX: D50.9 Iron deficiency anemia, unspecified; Z79.899 Other long term (current) drug therapy; Z53.9 Procedure and treatment not carried out, unspecified reason
CPT/HCPCS: 36415; 80053; 82607; 82728; 82746; 83540; 83550; 85025; 96365; 96366; 96375; 99214; J1200; J1750; J7030; J7040; J9999

== ENCOUNTER → 2025-04-05 15:46 | Outpatient (BNVA) | payer MEDICARE, SELFPAY | PROVIDERS: PCP Family Medicine; Visit Provider Internal Medicine Cardiovascular Disease | DX: R01.1 Cardiac murmur, unspecified (principal); R07.9 Chest pain, unspecified; I50.30 Unspecified diastolic (congestive) heart failure | CPT/HCPCS: 99214 ==

== ENCOUNTER 2025-04-14 11:37 | Outpatient (CLI) | payer MEDICARE, SELFPAY ==
--- NOTE | 2025-04-14 11:45 | MR_ITS ---
WS: [id number] MRI ABDOMEN WITH AND WITHOUT CONTRAST. COMPARISON: CT 02/25/2025, ultrasound 07/15/2024 Multiplanar, multisequence imaging is performed with and without contrast. Sagittal and axial T1 fat sat sequences post-MultiHance 15 cc IV. History: Continued mid and right-sided abdominal pain. History of cirrhosis. Hernia repair May 2023. History of breast cancer. No pleural effusions. Heart size appears normal. No pericardial effusion. Liver is normal size. Mild diffuse hepatic steatosis. No filling defect in the portal vein. Mild hazy attenuation in the central liver does not enhance. This may be an artifact. There are no enhancing masses identified. Surface of the liver is slightly nodular suggesting cirrhosis. The caudate lobe is not enlarged. No intrahepatic duct dilatation. Spleen is measuring mildly enlarged at 14.0 cm in length. Prior cholecystectomy. Common bile duct is normal. Normal pancreas and pancreatic duct. No adrenal mass. Kidneys are normal size. No renal mass or obstruction. Normal size aorta. No adenopathy or ascites identified in the abdomen. Marked dilatation of the stomach with food products. Component of gastroparesis may be present due to the overdistention of the stomach. No abdominal wall abnormality. No enhancing masses. MR/MR abdomen wo/w con* [id number] IMPRESSION: 1. Prior cholecystectomy. 2. Early changes of mild cirrhosis and hepatic steatosis within the liver. 3. Mild splenomegaly. 4. No ascites or adenopathy. 5. Mildly distended stomach with food products. Correlate for possible gastrop aresis. 6. Abdominal wall imaging is negative.
== END 2025-04-14 11:38 | disposition home or self-care (01) ==
LOC: RAD 11:39
PROVIDERS: PCP Family Medicine; Visit Provider Student in an Organized Health Care Education/Training Program
DX: K74.60 Unspecified cirrhosis of liver (principal); R79.89 Other specified abnormal findings of blood chemistry; Z90.49 Acquired absence of other specified parts of digestive tract; R16.2 Hepatomegaly with splenomegaly, not elsewhere classified
CPT/HCPCS: 74183

== ENCOUNTER 2025-04-19 09:03 | Oncology outpatient (recurring) (ONCR) | payer MEDICARE, SELFPAY ==
--- NOTE | 2025-04-19 09:45 | MM_ITS ---
WS: [id number] Diagnostic LEFT DIGITAL BREAST TOMOSYNTHESIS MAMMOGRAM WITH CAD HISTORY: surveillance COMPARISON: 04/15/2024, 04/12/2023 LEFT CC and MLO with tomosynthesis and synthetic mammography submitted. Computer aided detection analyzed. Breast composition: There are scattered areas of fibroglandular density. New asymmetry in the central LEFT breast near 12:00. Very slight increased density without distortion. No associated calcifications. The remaining LEFT breast is negative. MM/MM diag LT tomosynthesis [id number] IMPRESSION: BI-RADS: 0 - Incomplete: Need additional imaging evaluation. FOLLOW UP: Need Additional Imaging LEFT breast: Spot compression views (CC and MLO). Ultrasound to follow if abno rmality persists.
== END 2025-04-28 23:59 | disposition home or self-care (01) ==
LOC: ONCMED 09:04
PROVIDERS: PCP Family Medicine; Visit Provider Internal Medicine Medical Oncology
DX: C50.111 Malignant neoplasm of central portion of right female breast (principal); N64.89 Other specified disorders of breast; R92.322 Mammographic fibroglandular density, left breast
CPT/HCPCS: 77061; 77063